=== PATIENT | female | born 1950 | race Caucasian/White ===

== ENCOUNTER → 2016-12-11 | Outpatient (CLI) | payer MEDICARE, BC ==
[~2016-12-11] MED LIST: AMLO5CAP3 PO; BACT800T5 PO; CLOP75TA PO; CYCL1TAB29 PO; DICL75TA PO; FLUC150T PO; FURO20TA PO; GABA300C5 PO; HYDR-3583 PO; LEVO500T8 PO; METO50TA11 PO; OXYGENTANK NAS.CANULA; PANT40TA3 PO; PEPT262T2 PO; PRAV40TA2 PO; PRED10 PO; ROSU20; SYMB160A INH; TRAM50TA PO; VITA200012 PO; VITA20004 PO
[2016-12-11 09:45] LABS: AUTOMATED NEUTROPHIL # 5.7 TH/MM3 (1.8-7.7); BASOPHIL # 0.1 TH/MM3 (0-0.2); BASOPHIL % 0.7 % (0.0-2.0); EOSINOPHIL # 0.2 TH/MM3 (0-0.4); EOSINOPHIL % 2.6 % (0.0-4.0); HEMO FLAGS DIFF FINAL; LYMPH % 21.5 % (9.0-44.0); LYMPHOCYTE # 1.9 TH/MM3 (1.0-4.8); MEAN CELL VOLUME 91.7 FL (80.0-100.0); MEAN CORPUSCULAR HEMOGLOBIN 31.2 PG (27.0-34.0); MONO % 9.2 % (0.0-8.0); PLATELET COUNT 247 TH/MM3 (150-450); RED CELL DISTRIBUTION WIDTH 14.4 % (11.6-17.2); WHITE BLOOD COUNT 8.7 TH/MM3 (4.0-11.0)
[2016-12-11 09:49] LABS: BLOOD, URINE NEG (NEG); COMMENT (UR) CULT NOT INDICATED; CULTURE IF INDICATED CULT NOT INDICATED; GLUCOSE,URINE NEG (NEG); HYALINE CAST, URINE 1 /lpf (RARE); KETONE, URINE NEG (NEG); MUCUS URINE FEW /lpf (OCC); NITRITE,URINE NEG (NEG); PH, URINE 5.5 (5.0-8.5); SQUAMOUS EPITHELIAL CELL URINE 3 /hpf (0-5); URINE COLOR YELLOW (YELLW/STRAW)
[2016-12-11 09:51] LABS: APTT (PATIENT) 26.8 SEC (24.3-30.1); INTERNATIONAL NORMALIZED RATIO 0.9 RATIO; PROTHROMBIN TIME - PATIENT 10.3 SEC (9.8-11.6)
[2016-12-11 10:23] LABS: ALKALINE PHOSPHATASE 81 U/L (45-117); ALT (GPT) 18 U/L (10-53); ANION GAP 6 MEQ/L (5-15); AST (GOT) 11 U/L (15-37); BICARBONATE 27.6 MEQ/L (21.0-32.0); BLOOD UREA NITROGEN 23 MG/DL (7-18); CHLORIDE 108 MEQ/L (98-107); GLOMERULAR FILTRATION RATE 45 ML/MIN (>89); GLUCOSE,FASTING 82 MG/DL (74-99); SODIUM (NA) 142 MEQ/L (136-145); TOTAL BILIRUBIN ADULT 0.3 MG/DL (0.2-1.0)
== END ==
LOC: CPRE 07:46
PROVIDERS: ATTEND Neurological Surgery
DX: Z01.812 Encounter for preprocedural laboratory examination (principal); M48.06 Spinal stenosis, lumbar region; Z79.01 Long term (current) use of anticoagulants
CPT/HCPCS: 36415; 80053; 81001; 85025; 85610; 85730

== ENCOUNTER 2016-12-13 06:19 | Observation (INO) | payer MEDICARE, BC ==
[~2016-12-13] VITALS: Ht 165.1 cm; Wt 105.4 kg
[~2016-12-13 06:19] MED LIST changes: -AMLO5CAP3 PO; -BACT800T5 PO; -FLUC150T PO; -FURO20TA PO; -HYDR-3583 PO; -LEVO500T8 PO; -OXYGENTANK NAS.CANULA; -PRED10 PO; -ROSU20
[2016-12-13] MEDS ORDERED: SODIUM CHLOR 0.9% 1000 ML INJ 1,000 ML IV SCH (06:45)
[2016-12-13] MEDS ORDERED: VANCOMYCIN 1000 MG/NS 250 ML IV SCH ×2 (06:45)
[2016-12-13] MEDS ORDERED: SODIUM CHLORID 0.9% 500 ML IV PRN (06:45)
[2016-12-13] MEDS ORDERED: CHLORHEXIDINE GLUCONATE 2 % 1 PACK (2 CLOTHS) TOPICAL PRN (06:45)
[2016-12-13] MEDS ORDERED: METOPROLOL TARTRATE 25 MG TAB PO PRN (06:45)
[2016-12-13] MEDS ORDERED: POVIDONE IODINE 5% (ANTISEPSIS KIT) 4 APPLICATIONS EACH NARE PRN (06:45)
[2016-12-13] MEDS ORDERED: INSULIN HUMAN REGULAR 1,000 UNITS/10 ML VIAL SQ PRN (06:45)
[2016-12-13] MEDS: LACTATED RINGER'S 1000 ML IV PRN ×2 (06:50→18:29)
[2016-12-13 07:00] VITALS: BP 129/85; PULSE 77; RESP 18; TEMP 98.9; O2SAT 99
[2016-12-13] MEDS ORDERED: AMLO5CAP3 PO (07:07)
[2016-12-13] MEDS ORDERED: ACETAMINOPHEN 1000 MG/100 ML VIAL IV ONE (07:52)
[2016-12-13] MEDS ORDERED: MIDAZOLAM HCL 2 MG/2 ML VIAL ONE (07:52)
[2016-12-13] MEDS ORDERED: ARTIFICIAL TEARS OPTH OINT 3.5 APPLIC/3.5 GM TUBO ONE (07:52)
[2016-12-13] MEDS ORDERED: fentaNYL CITRATE 250 MCG/5 ML AMP ONE (07:53)
[2016-12-13] MEDS ORDERED: FAMOTIDINE 20 MG/2 ML VIAL ONE (07:53)
[2016-12-13] MEDS ORDERED: ceFAZolin 2 GM PREMIX 50 ML ONE (07:56)
[2016-12-13] MEDS ORDERED: methylPREDNISolone ACETATE 40 MG/ML VIAL ONE ×2 (07:56→11:12)
[2016-12-13] MEDS ORDERED: BUPIVACAINE/EPINEPHRINE 0.5% PF 30 ML VIAL ONE (07:56)
[2016-12-13] MEDS ORDERED: THROMBIN (TOPICAL) 5,000 UNIT VIAL ONE (07:56)
[2016-12-13] MEDS ORDERED: GENTAMICIN SULFATE 80 MG/2 ML VIAL ONE (07:57)
[2016-12-13] MEDS ORDERED: GELFOAM SIZE 100 ONE (07:57)
[2016-12-13] MEDS: SODIUM CHLORIDE 0.9% FLUSH 5 ML FLUSH IVF SCH ×2 (12:00→20:52)
[2016-12-13] MEDS ORDERED: SODIUM CHLORIDE 0.9% FLUSH 5 ML FLUSH IVF PRN (12:00)
[2016-12-13] MEDS ORDERED: MENTHOL LOZENGE BUCCAL PRN (12:00)
[2016-12-13] MEDS ORDERED: MORPHINE SULFATE 4 MG/ML INJ IV PUSH PRN ×2 (12:00)
[2016-12-13] MEDS ORDERED: ONDANSETRON HCL 4 MG/2 ML VIAL IV PUSH ONE (12:00)
[2016-12-13] MEDS ORDERED: cloNIDine HCL 0.1 MG TAB PO/NG PRN (12:00)
[2016-12-13] MEDS ORDERED: NEOSTIGMINE 3 MG/3 ML SYR IV ONE (12:00)
[2016-12-13] MEDS ORDERED: ACETAMINOPHEN/HYDROcodone 325 MG/10 MG TAB PO PRN (12:00)
[2016-12-13] MEDS ORDERED: ONDANSETRON HCL 4 MG/2 ML VIAL IV PRN (12:00)
[2016-12-13] MEDS ORDERED: LACTATED RINGER'S 1000 ML INJ 1,000 ML IV ONE (12:00)
[2016-12-13] MEDS ORDERED: ACETAMINOPHEN 325 MG TAB PO PRN (12:00)
[2016-12-13] MEDS ORDERED: MAGNESIUM HYDROXIDE SUSP 30 ML CUP PO PRN (12:00)
[2016-12-13] MEDS ORDERED: PROPOFOL 200 MG/20 ML AMP IV ONE (12:00)
[2016-12-13] MEDS ORDERED: HYDR-3583 PO (12:32)
[2016-12-13] MEDS ORDERED: *morphine SULFATE 8 MG/ML PERIprocedure ONLY ONE ×3 (12:34→12:58)
[2016-12-13] MEDS: SODIUM CHLOR 0.9% 1000 ML INJ 1,000 ML IV SCH ×2 (12:55→22:22)
[2016-12-13] MEDS: DOCUSATE SODIUM 100 MG CAP PO SCH ×2 (13:00→20:51)
[2016-12-13] MEDS ORDERED: DO NOT ADM ANY ANTICOAGULANT DRUGS PRN (13:15)
[2016-12-13 13:28] LABS: BICARBONATE 22.3 MEQ/L (21.0-32.0); MAGNESIUM 1.9 MG/DL (1.5-2.5); POTASSIUM 3.8 MEQ/L (3.5-5.1)
--- NOTE | 2016-12-13 14:44 | EKG ---
Date Performed: 12/13/2016 Time Performed: 13:16:50 PTAGE: 66 years EKG: Sinus rhythm WITH FREQUENT VENTRICULAR PREMATURE COMPLEXES ANTERIOR T-WAVE INVERSIONS, CONSIDER POSSIBLE ISCHEMIA ABNORMAL ECG PREVIOUS TRACING : 09/10/2012 06.59 Compared to the previous tracing, PVCs are new. T-wave inv ersions are somewhat more prominent DOCTOR: Andrew Knutson Interpretating Date/Time 12/13/2016 14:42:45
[2016-12-13] MEDS: MAGNESIUM SULFATE 1 GM PREMIX 100 ML IV SCH ×2 (14:50→17:00)
--- NOTE | 2016-12-13 15:33 | RADRPT ---
EXAM DATE/TIME: 12/13/2016 08:59 [facility] COMPARISON: No previous studies available for comparison. INDICATIONS : Level Localization L2,L3 and L4,L5. MEDICAL HISTORY : None. SURGICAL HISTORY : None. ENCOUNTER: Initial ACUITY: 1 day PAIN SCORE: Non-responsive. LOCATION: Lumbar spine. FINDINGS: 2 digital images of the lower lumbar spine are submitted. There is slight anterolisthesis of what I b elieve is L4 relative to L5. On image 102, a marker overlies the L5 level. On image 2 of 2, a marker overlies L3. CONCLUSION: Lumbar level localization as above Ben Zaragoza MD on December 13, 2016 at 15:30 Board Certified Radiologist. This report was verified electronically.
[2016-12-13] MEDS: RESP: ALBUTEROL 2.5 MG/3 ML NEB (PRN) INH (15:45)
[2016-12-13] MEDS ORDERED: POTASSIUM CHLORIDE 10 MEQ CONTROLLED RELEASE TAB PO ONE (16:00)
[2016-12-13] MEDS: PANTOPRAZOLE SOD 40 MG DELAYED RELEASE TAB PO SCH (16:30)
[2016-12-13] MEDS: ceFAZolin 2 GM PREMIX 50 ML IV SCH (17:00)
[2016-12-13 18:00] VITALS: BP 118/69; PULSE 68; RESP 12; TEMP 96.2; O2SAT 91
[2016-12-13] MEDS: BUDESONIDE-FORMOTEROL 160/4.5 MCG INHALER INH SCH (19:43)
[2016-12-13 20:20] VITALS: BP 142/67; PULSE 79; RESP 17; TEMP 96.7; O2SAT 92
[2016-12-13] MEDS: GABAPENTIN 300 MG CAP PO SCH (20:50)
[2016-12-13] MEDS: ACETAMINOPHEN/HYDROcodone 325 MG/10 MG TAB PO PRN (20:51)
[2016-12-13] MEDS: PRAVASTATIN SOD 40 MG TAB PO SCH (20:51)
[2016-12-13] MEDS: METOPROLOL SUCCINATE 50 MG EXTENDED RELEASE TAB PO SCH (22:21)
[2016-12-14] VITALS (15 sets, daily range): BP systolic 83–150; BP diastolic 65–87; PULSE 62–80; RESP 15–22; TEMP 96.8–98.5; O2SAT 78–96
[2016-12-14] MEDS: ceFAZolin 2 GM PREMIX 50 ML IV SCH ×2 (00:56→08:44)
[2016-12-14] MEDS: ACETAMINOPHEN/HYDROcodone 325 MG/10 MG TAB PO PRN ×3 (05:17→20:03)
--- NOTE | 2016-12-14 06:29 | MB ---
cc: ANDREW SERRANO SURYA P. MD DATE OF CONSULTATION December 13, [address] [address] Willy SHETH REASON FOR CONSULTATION Arrhythmia. HISTORY OF PRESENT ILLNESS Omaira Rodrigez as a pleasant 66-year-old female who presented to [facility] on December 13, 2016, for elective surgery. She underwent an L2/3, L4/5 hemilaminectomy, foraminectomy, mesiofacetectomy and microsurgical resection of disc. Postoperatively she was having bigeminy and then into sinus rhythm with PVCs occasionally. Because of this, lab work an EKG was done and Cardiology was consulted. In seeing the patient, she states that she has no complaints, specifically denying chest pain, shortness of breath, dizziness or lightheadedness. She has a history of palpitations and per the records a history of bigeminy. PAST MEDICAL HISTORY 1. Cataracts. 2. Asthma. 3. COPD. 4. Hypertension. 5. Osteoarthritis. 6. TIA. 7. Peripheral artery disease. PAST SURGICAL HISTORY 1. Peripheral artery stenting. 2. Hysterectomy. 3. Left knee replacement. ALLERGIES 1. Augmentin. 2. Cipro. MEDICATIONS 1. Symbicort 1 puff b.i.d. 1. Gabapentin 300 mg b.i.d. 2. Metoprolol succinate 50 mg b.i.d. 3. Flexeril 10 mg b.i.d. 4. Amlodipine plus benazepril 5/20 mg daily. 5. Pravastatin 40 mg every night. 6. Diclofenac 75 mg b.i.d. 7. Hydrocodone/acetaminophen and 10/325 mg every 8 hours as needed. 8. Tramadol 50 mg b.i.d. 9. Plavix 75 mg daily. 10. Protonix 40 mg daily. SOCIAL HISTORY The patient is a current smoker. She drinks occasional alcohol. Denies illicit drug abuse. FAMILY HISTORY Denies premature coronary artery disease or sudden cardiac within the family. REVIEW OF SYSTEMS Fourteen systems were reviewed as above. Pertinent positives and negatives as above, otherwise negative. PHYSICAL EXAMINATION VITAL SIGNS: Temperature 98.9, heart rate 75, blood pressure 129/85, respirations 18, pulse ox 95% on room air. IN GENERAL: The patient appears well, in no acute distress. Alert, awake and oriented x 3. Extraocular muscles intact. Mucous membranes moist. NECK: Supple. No JVD at 45 degrees. No carotid bruits heard bilaterally. Carotid upstroke is brisk in nature. HEART: Regular rate and rhythm. Positive first and second heart sounds with no noted murmurs, gallops or rubs. PMI is nondisplaced. LUNGS: Clear to auscultation bilaterally. No wheezes, rales or rhonchi. ABDOMEN: Soft, nontender, nondistended. No organomegaly noted. EXTREMITIES: No clubbing, cyanosis or edema. Femoral and distal pulses intact bilaterally. NEUROLOGICALLY: No focal deficits. SKIN: Warm, dry and intact. OSTEOPATHIC EXAM: No kyphoscoliosis or lordosis. LABORATORY FINDINGS Potassium 3.8, BUN 16, creatinine 0.97, magnesium 1.9. ELECTROCARDIOGRAM (December 13, 2016 at 13:16) Sinus rhythm with PVCs, anterior T-wave inversions, possible ischemia versus nonspecific changes. IMPRESSIONS 1. Bigeminy. 2. Sinus rhythm with occasional PVCs, currently asymptomatic. 3. History of palpitations with a history of bigeminy. 4. EKG with mild anterior T-wave inversions which is similar to her previous EKG in the office (September 13, 2015). 5. Status post L2/3, L4/5 hemilaminectomy, foraminotomy, mesiofacetectomy, microsurgical disc resection. 6. Hypertension. 7. COPD. 8. Asthma. 9. History of TIA. 10. History of peripheral artery disease. RECOMMENDATIONS 1. Miss Rodrigez does have a history of bigeminy and this has been worked up in the past by Dr. Melton. He she currently had an episode of bigeminy and then and now is in sinus rhythm with occasional PVCs. She is asymptomatic from this. 2. As far as her lab work goes, we will give her a dose of potassium and magnesium. 3. Recent echo done at [facility] shows normal ejection fraction. 4. She does have minor T-wave inversions which may be somewhat nonspecific versus due to ischemia. This is similar in nature to her previous EKG from the office (September 13, 2015). Furthermore, the patient is currently asymptomatic. I feel that we can watch her overnight and if stable in the morning she can be discharged for further workup with a consideration of a stress test by Dr. Melton in the outpatient setting. 5. If any change overnight with symptoms or hemodynamically, we may have to change our plan on possible ischemic evaluation. 6. If stable in the morning, we will plan for discharge from a cardiovascular standpoint for followup with Dr. Melton. Thank you for allowing me to see Omaira Shiekhfield. If there are any questions, please do not hesitate to call. Andrew Serrano DO VGP/SSB /6:26 PM /6:09 AM [facility]ALIA
[2016-12-14] MEDS: BUDESONIDE-FORMOTEROL 160/4.5 MCG INHALER INH SCH ×2 (08:43→20:07)
[2016-12-14] MEDS: LISINOPRIL 20 MG TAB PO SCH (08:45)
[2016-12-14] MEDS: CYANOCOBALAMIN 1,000 MCG TAB PO SCH (08:45)
[2016-12-14] MEDS: GABAPENTIN 300 MG CAP PO SCH ×2 (08:45→20:03)
[2016-12-14] MEDS: PANTOPRAZOLE SOD 40 MG DELAYED RELEASE TAB PO SCH (08:45)
[2016-12-14] MEDS: amLODIPine BESYLATE 5 MG TAB PO SCH (08:45)
[2016-12-14] MEDS: METOPROLOL SUCCINATE 50 MG EXTENDED RELEASE TAB PO SCH ×2 (08:46→20:03)
[2016-12-14] MEDS: DOCUSATE SODIUM 100 MG CAP PO SCH ×2 (08:46→20:03)
[2016-12-14] MEDS: SODIUM CHLORIDE 0.9% FLUSH 5 ML FLUSH IVF SCH ×2 (08:49→20:05)
[2016-12-14] MEDS: SODIUM CHLOR 0.9% 1000 ML INJ 1,000 ML IV SCH (08:49)
--- NOTE | 2016-12-14 08:56 | HHI.NSPN ---
(Tuyet Haywood) Note Status Status: Progress Note (Tuyet Haywood) Interval History Interval History Ms. Rodrigez is a 66 year old female s/p lumbar decompressive laminectomy and microdiscectomy on 12/13/16. Post-op she developed arrhythmias and Cardiology consulted. 12/14: c/o of shortness of breath, denies chest pain. respiratory paged for breathing tx. (Tuyet Haywood) Labs, Micro, & Vital Signs Results Date Time Temp Pulse Resp B/P Pulse Ox O2 Delivery O2 Flow Rate FiO2 12/14/16 07:36 97.2 78 17 126/73 92 12/14/16 04:40 97.0 68 18 135/67 92 12/14/16 00:50 96.8 66 17 118/67 93 12/13/16 20:20 96.7 79 17 142/67 92 12/13/16 19:43 High Flow Nasal Cannula 6.00 12/13/16 18:00 96.2 68 12 118/69 91 12/13/16 17:00 98.3 78 20 151/68 95 Nasal Cannula 3 12/13/16 16:00 78 26 127/68 93 Nasal Cannula 3 12/13/16 15:00 74 21 115/68 92 Nasal Cannula 3 12/13/16 14:00 74 19 119/71 93 Nasal Cannula 3 12/13/16 13:30 75 19 121/68 93 Nasal Cannula 3 12/13/16 13:15 77 24 129/78 91 Nasal Cannula 4 12/13/16 13:00 73 20 131/67 93 Nasal Cannula 4 12/13/16 12:45 73 20 133/61 93 Nasal Cannula 4 12/13/16 12:30 72 20 93 Nasal Cannula 4 138/72 12/13/16 12:15 72 16 134/58 93 Nasal Cannula 4 124/65 12/13/16 12:06 97.3 77 17 132/74 91 Simple Mask 6 12/14/16 07:00 Intake Total 3068 ml Output Total 1430 ml Balance 1638 ml Constitutional Vital Signs Date Time Temp Pulse Resp B/P Pulse Ox O2 Delivery O2 Flow Rate FiO2 12/14/16 07:36 97.2 78 17 126/73 92 12/14/16 04:40 97.0 68 18 135/67 92 12/14/16 00:50 96.8 66 17 118/67 93 12/13/16 20:20 96.7 79 17 142/67 92 12/13/16 19:43 High Flow Nasal Cannula 6.00 12/13/16 18:00 96.2 68 12 118/69 91 12/13/16 17:00 98.3 78 20 151/68 95 Nasal Cannula 3 12/13/16 16:00 78 26 127/68 93 Nasal Cannula 3 12/13/16 15:00 74 21 115/68 92 Nasal Cannula 3 12/13/16 14:00 74 19 119/71 93 Nasal Cannula 3 12/13/16 13:30 75 19 121/68 93 Nasal Cannula 3 12/13/16 13:15 77 24 129/78 91 Nasal Cannula 4 12/13/16 13:00 73 20 131/67 93 Nasal Cannula 4 12/13/16 12:45 73 20 133/61 93 Nasal Cannula 4 12/13/16 12:30 72 20 93 Nasal Cannula 4 138/72 12/13/16 12:15 72 16 134/58 93 Nasal Cannula 4 124/65 12/13/16 12:06 97.3 77 17 132/74 91 Simple Mask 6 12/14/16 07:00 Intake Total 3068 ml Output Total 1430 ml Balance 1638 ml (Tuyet Haywood) Review of Systems/Exam Exam Alert and oriented x 3. Speech is fluent. Motor: moves right leg 4/5 proximal, 5/5 distal left leg 5/5. moves upper extremities well Heart: NSR Lung: wheezes to right upper lung field Ext: no edema or pain to palpation CN: pupils equal, facial motor symmetric (Tuyet Haywood) Medications Current Medications Current Medications Medications (Trade) Dose Ordered Sig/Zoran Route PRN Reason Start Time Stop Time Status Last Admin Dose Admin Lactated Ringer's 1,000 ml @ 30 mls/hr Q24H PRN IV SEE LABEL COMMENTS 12/13/16 06:45 12/16/16 06:44 12/13/16 06:50 Sodium Chloride 500 ml @ 30 mls/hr [id number] PRN IV SEE LABEL COMMENTS 12/13/16 06:45 12/16/16 06:44 Sodium Chloride (NS 1000 ml Inj) 1,000 ml @ 100 mls/hr Q10H IV 12/13/16 13:00 12/13/16 12:55 IV Flush (NS Flush) 2 ml UNSCH PRN IVF FLUSH AFTER USING IV ACCESS 12/13/16 12:00 IV Flush 2 ml 2 ml BID IVF 12/13/16 12:00 12/13/16 12:00 Cefazolin Sodium/ Dextrose (Ancef 2 Gm Premix) 50 ml @ 100 mls/hr Q8H IV 12/13/16 17:00 12/14/16 09:29 12/14/16 08:44 Docusate Sodium (Colace) 100 mg BID PO 12/13/16 13:00 Magnesium Hydroxide (Milk Of Magnesia Liq) 30 ml DAILY PRN PO CONSTIPATION 12/13/16 12:00 Pantoprazole Sodium (Protonix) 40 mg DAILY PO 12/13/16 13:00 12/14/16 08:45 Ondansetron HCl (Zofran Inj) 4 mg Q6H PRN IV NAUSEA OR VOMITING 12/13/16 12:00 Acetaminophen/ Hydrocodone Bitart ([place] 10-325 Mg) 1 tab Q4H PRN PO PAIN SCALE 1 TO 5 12/13/16 12:00 Acetaminophen/ Hydrocodone Bitart ([place] 10-325 Mg) 2 tab Q4H PRN PO PAIN SCALE 6 TO 10 12/13/16 12:00 12/14/16 08:47 Morphine Sulfate (Morphine Inj) 2 mg Q2H PRN IV PUSH PAIN SCALE 1 TO 6 12/13/16 12:00 Morphine Sulfate (Morphine Inj) 4 mg Q2H PRN IV PUSH PAIN SCALE 7 TO 10 12/13/16 12:00 Clonidine (Catapres) 0.1 mg Q6H PRN PO/NG SYS BP GREATER THAN 170 MMHG 12/13/16 12:00 Acetaminophen (Tylenol) 650 mg Q4H PRN PO TEMPERATURE > 101.5 F 12/13/16 12:00 Menthol ([place] Mariela) 1 lozenge UNSCH PRN BUCCAL SORE THROAT 12/13/16 12:00 Budesonide/ Formoterol Fumarate (Symbicort 160-4.5 Inh) 1 puff BID INH 12/13/16 21:00 12/14/16 08:43 Cyanocobalamin (Vitamin B12) 2,000 mcg DAILY PO 12/14/16 09:00 12/14/16 08:45 Gabapentin (Neurontin) 300 mg BID PO 12/13/16 21:00 12/14/16 08:45 Pravastatin Sodium (Pravachol) 40 mg HS PO 12/13/16 21:00 Amlodipine Besylate (Norvasc) 5 mg DAILY PO 12/13/16 13:15 12/14/16 08:45 Lisinopril (Prinivil) 20 mg DAILY PO 12/14/16 09:00 12/14/16 08:45 Miscellaneous Information ALL NURSING DEPARTME... UNSCH PRN .XX SEE LABEL COMMENTS 12/13/16 13:15 12/14/16 13:14 Metoprolol Succinate (Toprol Xl) 50 mg BID PO 12/13/16 22:00 12/14/16 08:46 (Tuyet Haywood) Medical Decision Making MDM Remarks 66 y/o female s/p lumbar laminectomy and microdiscectomy 12/13/16 Arrhythmia, resolved Asthma/COPD exacerbation (Tuyet Haywood) Plan Plan Remarks Cardiology evaluation noted, appreciated, start continuous pulse ox, CXR neb treatment cont SCDs and TEDs for dvt prophylaxis (Tuyet Haywood) Attending Statement The exam, history, and the medical decision-making described in the above note were completed with the assistance of the mid-level provider. I reviewed and agree with the findings presented. I attest that I had a [id number] encounter with the patient on the same day, and personally performed and documented my assessment and findings in the medical record. (Frank De La Cruz MD) Tuyet Haywood December 14, 2016 08:56 Frank De La Cruz MD December 18, 2016 12:43
[2016-12-14] MEDS ORDERED: NON-FORMULARY DRUG (Amlodipine-Benazepril 1 CAP) PO SCH (09:00)
[2016-12-14] MEDS: RESP: ALBUTEROL 2.5 MG/3 ML NEB (PRN) INH ×2 (09:16→09:44)
[2016-12-14 09:38] LABS: BLOOD GAS BASE EXCESS -4.5 mmol/L (-2-2); BLOOD GAS CARBOXYHEMOGLOBIN 1.7 % (0-4); BLOOD GAS HCO3 21 mmol/L (22-26); BLOOD GAS METHEMOGLOBIN 1.4 % (0-2); BLOOD GAS O2 HGB SATURATION 86 % (90-100); BLOOD GAS OXYGEN CONTENT 15.9 Vol % (12.0-20.0); BLOOD GAS PCO2 41 mmHg (38-42); BLOOD GAS PO2 58 mmHg (61-120); BLOOD GAS TOTAL HGB 13.1 G/DL (12.0-16.0); TEMP CORR TO 98.6
[2016-12-14 09:39] LABS: CRITICAL VALUE YES
[2016-12-14 09:40] LABS: DRAW SITE RT RADIAL; FIO2 50 %; NUMBER OF ARTERIAL PUNCTURES 1; OXYGEN DEVICE VENTIMASK; STAT YES; ULNAR PULSE PRESENT
[2016-12-14] MEDS ORDERED: FUROSEMIDE 40 MG/4 ML VIAL ONE (09:41)
--- NOTE | 2016-12-14 09:56 | RADRPT ---
EXAM DATE/TIME: 12/14/2016 09:34 [facility] COMPARISON: No previous studies available for comparison. INDICATIONS : Shortness of breath. MEDICAL HISTORY : Myocardial infarction. SURGICAL HISTORY : None. ENCOUNTER: Subsequent ACUITY: 2 days PAIN SCORE: 0/10 LOCATION: Bilateral chest FINDINGS: Heart size is mildly enlarged. There some hazy opacity of the lung bases which may represent mild richard ma and associated atelectasis. No significant effusion. No pneumothorax. CONCLUSION: 1. Mild cardiomegaly with possible mild edema pattern and basilar atelectasis. Sae Lin MD on December 14, 2016 at 9:53 Board Certified Radiologist. This report was verified electronically.
--- NOTE | 2016-12-14 10:16 | PD.CONS ---
[facility] Requested By Doctor Frank De La Cruz Reason for Consult Shortness of breath Primary Care Physician Juju Poole M.D. Diagnoses: History of Present Illness This is a pleasant 66 y/o Female who has COPD, Hypertension, OA, TIA, Peripheral Artery Disease Who came to this Facility on December 13, 2016 for Elective Surgery, status post L2- L3, L4-L5 Hemilaminectomy, Facetectomy, Foraminectomy, Microsurgical resection of disc, she is been seen by child life specialist due to Bigeminy and then had sinus rhythm with Occasional PVCs, rhythm with PVCs occasionally, having some Shortness of breath, Dizziness, Lightheadedness, as per child life specialist okay to discharge home, this morning, she developed Shortness of breath with Hypoxemia, Rapid response team and occupancy specialist in to see patient and recommended diuretics and respiratory treatment. she is been seen in her bedroom in the presence of her Boyfriend Mr. Dempsey states she is a heavy smoker. Review of Systems Respiratory: COMPLAINS OF: Shortness of breath Past Family Social History Allergies: Coded Allergies: Augmentin (Verified Allergy, Severe, 12/13/16) Cipro (Verified Allergy, Severe, 12/13/16) Past Medical History Cataracts. COPD. Hypertension. Osteoarthritis. TIA. Peripheral artery disease. Past Surgical History Peripheral artery stenting. Hysterectomy. Left knee replacement. breast reduction. Reported Medications Reported Meds & Active Scripts Active Hydrocodone-Acetaminophen 10-325 mg Tab 1 Tab PO Q8HR PRN Reported Amlodipine-Benazepril 5-20 Mg Cap 1 Cap PO DAILY Vitamin D3 (Cholecalciferol) 2,000 Unit Tab 6,000 Units PO DAILY Vitamin B-12 ER (Cyanocobalamin) 2,000 Mcg Tab 2,000 Mcg PO DAILY Pepto-Bismol (Bismuth Subsalicylate) 262 Mg Tab 524 Mg PO BID Do not exceed 8 doses in 24 hours. Flexeril (Cyclobenzaprine HCl) 10 Mg Tab 10 Mg PO BID Pantoprazole (Pantoprazole Sodium) 40 Mg Tab 1 Tab PO DAILY Pravastatin 40 Mg Tab 1 Tab PO HS Diclofenac Sodium DR (Diclofenac Sodium) 75 Mg Tabdr 1 Tab PO BID Tramadol (Tramadol HCl) 50 Mg Tab 1 Tab PO BID Metoprolol Succinate ER 24 HR (Metoprolol Succinate) 50 Mg Tab 1 Tab PO BID Gabapentin 300 Mg Cap 1 Cap PO BID Clopidogrel (Clopidogrel Bisulfate) 75 Mg Tab 1 Tab PO DAILY Symbicort Inh (Budesonide/Formoterol Fumarate) 160-4.5 Mcg/Act Aero 1 Puff INH BID Active Ordered Medications Current Medications Medications (Trade) Dose Ordered Sig/Zoran Route Start Time Stop Time Status Last Admin Lactated Ringer's 1,000 ml @ 30 mls/hr Q24H PRN IV 12/13/16 06:45 12/16/16 06:44 12/13/16 06:50 Sodium Chloride 500 ml @ 30 mls/hr [id number] PRN IV 12/13/16 06:45 12/16/16 06:44 (NS 1000 ml Inj) 1,000 ml @ 100 mls/hr Q10H IV 12/13/16 13:00 12/13/16 12:55 (NS Flush) 2 ml UNSCH PRN IVF 12/13/16 12:00 (NS Flush) 2 ml BID IVF 12/13/16 12:00 12/13/16 12:00 (Colace) 100 mg BID PO 12/13/16 13:00 (Milk Of Magnesia Liq) 30 ml DAILY PRN PO 12/13/16 12:00 (Protonix) 40 mg DAILY PO 12/13/16 13:00 12/14/16 08:45 (Zofran Inj) 4 mg Q6H PRN IV 12/13/16 12:00 ([place] 10-325 Mg) 1 tab Q4H PRN PO 12/13/16 12:00 ([place] 10-325 Mg) 2 tab Q4H PRN PO 12/13/16 12:00 12/14/16 08:47 (Morphine Inj) 2 mg Q2H PRN IV PUSH 12/13/16 12:00 (Morphine Inj) 4 mg Q2H PRN IV PUSH 12/13/16 12:00 (Catapres) 0.1 mg Q6H PRN PO/NG 12/13/16 12:00 (Tylenol) 650 mg Q4H PRN PO 12/13/16 12:00 ([place] Mariela) 1 lozenge UNSCH PRN BUCCAL 12/13/16 12:00 (Symbicort 160-4.5 Inh) 1 puff BID INH 12/13/16 21:00 12/14/16 08:43 (Vitamin B12) 2,000 mcg DAILY PO 12/14/16 09:00 12/14/16 08:45 (Neurontin) 300 mg BID PO 12/13/16 21:00 12/14/16 08:45 (Pravachol) 40 mg HS PO 12/13/16 21:00 (Norvasc) 5 mg DAILY PO 12/13/16 13:15 12/14/16 08:45 (Prinivil) 20 mg DAILY PO 12/14/16 09:00 12/14/16 08:45 Miscellaneous Information ALL NURSING DEPARTME... UNSCH PRN .XX 12/13/16 13:15 12/14/16 13:14 (Toprol Xl) 50 mg BID PO 12/13/16 22:00 12/14/16 08:46 Family History Father and Mother with CAD, Father with Lymphoma. Social History Lives with her boyfriend Mr. Dempsey Tobacco dependency 49 Pack year history. Occasional alcohol abuse denies other toxic habits. Physical Exam Vital Signs Vital Signs Date Time Temp Pulse Resp B/P Pulse Ox O2 Delivery O2 Flow Rate FiO2 12/14/16 07:36 97.2 78 17 126/73 92 12/14/16 04:40 97.0 68 18 135/67 92 12/14/16 00:50 96.8 66 17 118/67 93 12/13/16 20:20 96.7 79 17 142/67 92 12/13/16 19:43 High Flow Nasal Cannula 6.00 12/13/16 18:00 96.2 68 12 118/69 91 12/13/16 17:00 98.3 78 20 151/68 95 Nasal Cannula 3 12/13/16 16:00 78 26 127/68 93 Nasal Cannula 3 12/13/16 15:00 74 21 115/68 92 Nasal Cannula 3 12/13/16 14:00 74 19 119/71 93 Nasal Cannula 3 12/13/16 13:30 75 19 121/68 93 Nasal Cannula 3 12/13/16 13:15 77 24 129/78 91 Nasal Cannula 4 12/13/16 13:00 73 20 131/67 93 Nasal Cannula 4 12/13/16 12:45 73 20 133/61 93 Nasal Cannula 4 12/13/16 12:30 72 20 93 Nasal Cannula 4 138/72 12/13/16 12:15 72 16 134/58 93 Nasal Cannula 4 124/65 12/13/16 12:06 97.3 77 17 132/74 91 Simple Mask 6 Physical Exam GENERAL: Obese patient in mild respiratory distress. SKIN: No rashes, ecchymoses or lesions. Cool and dry. HEAD: Atraumatic. Normocephalic. No temporal or scalp tenderness. EYES: Pupils equal round and reactive. Extraocular motions intact. No scleral icterus. No injection or drainage. ENT: Nose without bleeding, purulent drainage or septal hematoma. Throat without erythema, tonsillar hypertrophy or exudate. Uvula midline. Airway patent. NECK: Trachea midline. No JVD or lymphadenopathy. Supple, nontender, no meningeal signs. CARDIOVASCULAR: Regular rate and rhythm without murmurs, gallops, or rubs. RESPIRATORY: Decreased breath sounds bilateral, with mild expiratory wheezing, no crackles. GASTROINTESTINAL: Abdomen soft, non-tender, nondistended. No hepato-splenomegaly , or palpable masses. No guarding. MUSCULOSKELETAL: Extremities without clubbing, cyanosis, or edema. NEUROLOGICAL: Awake and alert. No focal deficits. Laboratory Laboratory Tests Test 12/13/16 12/14/16 12:30 09:30 Sodium Level 144 Potassium Level 3.8 Chloride Level 114 Carbon Dioxide Level 22.3 Anion Gap 8 Blood Urea Nitrogen 16 Creatinine 0.97 Estimat Glomerular Filtration 57 Rate Random Glucose 120 Calcium Level 8.3 Magnesium Level 1.9 Blood Gas Puncture Site RT RADIAL Blood Gas Patient Temperature 98.6 Blood Gas HCO3 21 Blood Gas Base Excess -4.5 Blood Gas Oxygen Saturation 86 Arterial Blood pH 7.32 Arterial Blood Partial 41 Pressure CO2 Arterial Blood Partial 58 Pressure O2 Arterial Blood Oxygen Content 15.9 Arterial Blood 1.7 Carboxyhemoglobin Arterial Blood Methemoglobin 1.4 Blood Gas Hemoglobin 13.1 Oxygen Delivery Device VENTIMASK Blood Gas Inspired Oxygen 50 Result Diagram: 12/13/16 1230 Imaging Last Impressions Lumbar Spine X-Ray 12/13/16 0000 Signed Impressions: Service Date/Time: Tuesday, December 13, 2016 08:59 - CONCLUSION: Lumbar level localization as above Ben Zaragoza MD Assessment and Plan Assessment and Plan 1. Respiratory failure multifactorial, patient on IV fluids probable moderate volume overload, seen left Pleural effusion edema on CXR, given already Diuretics as per Critical Care and following, for COPD exacerbation will continue respiratory therapy, Incentive spirometry, Mucolytics, Nebulized steroids and Solu-Medrol one dose of 40 mg and follow for recovery may need PCU versus Intensive Care. 2. Degenerative Disk disease, with Status post L2/3, L4/5 hemilaminectomy, foraminotomy, mesiofacetectomy, microsurgical disc resection. 3. COPD with probable mild exacerbation. 4. TIA by history 5. Peripheral Artery disease. 6. Bigeminy recent Echocardiogram with Normal EF as per child life specialist. recommended to be performed Stress test as outpatient. by her Primary child life specialist Doctor cristina Melton for discharge from Cardiology 7. Hypertension controlled. DVT prophylaxis SCDs Appreciated Doctor Frank De La Cruz for this kindly consultation. following patient with you. Code Status Full code. Discussed Condition With Discussed in the room with Patient, Nurse, Rapid response nurse, her boyfriend Mr. Dempsey. Americo Foreman MD December 14, 2016 10:16
[2016-12-14] MEDS ORDERED: methylPREDNISolone SOD SUCC 40 MG/1 ML VIAL IV PUSH ONE (11:00)
--- NOTE | 2016-12-14 11:30 | PD.OP ---
Operative Report Date of Surgery: December 14, 2016 Preoperative Diagnosis: Lumbar spinal stenosis Postoperative Diagnosis: Lumbar spinal stenosis Procedure: Right L2-L3 hemilaminectomy, mesial facetectomy, foraminotomy with microsurgical resection of the disc, right L4 5 hemilaminectomy, mesial facetectomy, foraminotomy with microsurgical resection of the disc Anesthesia: general Surgeon: Frank De La Cruz Senior Quality Manager(s): Aminta Belcher Operation and Findings: INDICATIONS FOR THE SURGICAL PROCEDURE Ms Villa is a 66 year-old female who presented with intractable mechanical back pain and clinical evidence of L3 and L5 right lower extremity radiculopathy. She was found to have significant lumbar spinal stenosis with significant mass effect on the neural structures which correlated with the clinical symptoms. She failed maximum nonsurgical management including multiple modalities of conservative treatment as well as pain management interventions by an interventional pain specialist. A surgical decompression was indicated as a last resort. The [id number] details of the procedure, indications, alternatives, risks and potential complications were fully discussed with the patient. The patient fully understood. All the questions were answered. No guarantees were given. The patient voiced requesting the procedure and provided informed consents. The patient was offered the alternative of delaying the procedure and continuing with nonsurgical management. DETAILS OF THE SURGICAL PROCEDURE After the induction of general anesthesia, endotracheal intubation was performed. A Cárdenas catheter, bilateral TIFF hose and sequential compression devices were placed and kept throughout the procedure. The patient was positioned prone on a Deshawn table over a Stephen frame. All pressure points were carefully padded with eggcrate mattress. The eyes were tapped shut after ointment was applied by the anesthesiologist to prevent corneal abrasion. A Samuel hugger was placed over the exposed lower body to maintain control of the core body temperature. The lower lumbar region was prepped and draped in the usual sterile fashion. A spinal needle was placed for localization and an x- ray performed with a C-arm. A skin incision was made in the midline over the spinous processes L2-3 and L4- 5 with a #10 blade. Small subcutaneous bleeders were controlled with a bipolar and the dissection was carried out through the lumbar fascia exposing the spinous processes. A subperiostial dissection was performed with a Dickson elevator and a Bovie over the L2-3 and L4-5 spinous process lamina and facets. A microdiscectomy self-retaining retractor was placed on the incision and an x- ray was obtained with an instrument placed underneath the lamina. At this point in the procedure the operating microscope was draped in the usual sterile fashion and brought to the field. The rest of the surgical procedure was performed using microsurgical dissection technique with exception of the closure. Once the level was confirmed, a decompressive laminectomy was performed at L4-5 using the TPS drill with an 4mm drill bit. A medial facetectomy was performed and the superior free border of the ligamentum flavum was dissected with a ligament dissector and removed with a thin footplate 2 mm Kerrison. The medial facetectomy was done and the L5 nerve root was identified and followed towards its exit in the foramen. Epidural veins located laterally to the dural sac were coagulated with a bipolar and incised with microscissors. Gentle medial retraction of the dural sac allowed inspection of the disc space. The patient had severe facet arthropathy with hypertrhopy of the joint facets and ligamentum flavum resulting in mass effect over the dural sac and nerve roots. In addition, there was a broad-based disc protusion, contributing to the stenosis. The annulus fibrosus of the disc was coagulated with the bipolar and incised with an 11 blade. The extruded disc was carefully dissected from the surrounding tissue and removed with pituitary forceps. Then, a microdiscectomy was carried out in the standard fashion using straight and up-biting pituitary forceps. A good decompression of the dural sac and nerve root was achieved. The exit of the nerve root was inspected for residual disc fragments and hemostasis was secured with the bipolar.\ Then, after proper radiological visualization, a right decompressive laminectomy was performed at L2-L3 using the TPS drill with an 4mm drill bit. A medial facetectomy was performed and the superior free border of the ligamentum flavum was dissected with a ligament dissector and removed with a thin footplate 2 mm Kerrison. The medial facetectomy was done and the L3 nerve root was identified and followed towards its exit in the foramen. Epidural veins located laterally to the dural sac were coagulated with a bipolar and incised with microscissors. Gentle medial retraction of the dural sac allowed inspection of the disc space. The patient had severe facet arthropathy with hypertrhopy of the joint facets and ligamentum flavum resulting in mass effect over the dural sac and nerve roots. In addition, there was a broad-based disc protusion, contributing to the stenosis. The annulus fibrosus of the disc was coagulated with the bipolar and incised with an 11 blade. The extruded disc was carefully dissected from the surrounding tissue and removed with pituitary forceps. Then, a microdiscectomy was carried out in the standard fashion using straight and up-biting pituitary forceps. A good decompression of the dural sac and nerve root was achieved. The exit of the nerve root was inspected for residual disc fragments and hemostasis was secured with the bipolar. The incision was irrigated with a large amount of saline solution. A Valsalva maneuver failed to show any cerebrospinal fluid leak or bleeding. The decompression was assessed again and found to be satisfactory. The incision was then closed in layers. The fascia was closed with 0 Vicryl sutures in an interrupted fashion. The superficial fascia was closed with 0 Vicryl sutures. The fascia was infiltrated with 0.5% Marcaine with epinephrine 1:100,000 dilution. The subcutaneous tissue was irrigated then closed with 0 Vicryl and 3 -0 Vicryl. The skin was closed with 4-0 running subcuticular Vicryl. A sterile dressing was applied. At the end of the procedure, the sponge, needle and instrument counts were all correct. Estimated blood loss was less than cc. No blood transfusion was given. No intraoperative complications occurred. The patient received prophylactic antibiotics. The patient was then extubated and transferred to the recovery room in stable condition. Frank De La Cruz MD December 14, 2016 11:30
[2016-12-14] MEDS: RESP: ALBUTEROL 2.5 MG/IPRATROPIUM 0.5 MG NEB (SCH) NEB ×4 (11:48→23:32)
[2016-12-14] MEDS: guaiFENesin E.R. 600 MG TAB PO SCH ×2 (12:00→20:05)
--- NOTE | 2016-12-14 12:58 | PD.CARD.PN ---
Subjective Subjective Remarks Short of breath this morning, Helicat called, found to have pulmonary edema... given Lasix and has diuresed well since Had tightness with breathing this morning, but since diuresing has no further chest pain/tightness Objective Medications Current Medications Medications (Trade) Dose Ordered Sig/Zoran Route Start Time Stop Time Status Last Admin (NS 500 ml Inj) 500 ml @ 30 mls/hr [id number] PRN IV 12/13/16 06:45 12/16/16 06:44 (NS Flush) 2 ml UNSCH PRN IVF 12/13/16 12:00 (NS Flush) 2 ml BID IVF 12/13/16 12:00 12/13/16 12:00 (Colace) 100 mg BID PO 12/13/16 13:00 (Milk Of Magnesia Liq) 30 ml DAILY PRN PO 12/13/16 12:00 (Protonix) 40 mg DAILY PO 12/13/16 13:00 12/14/16 08:45 (Zofran Inj) 4 mg Q6H PRN IV 12/13/16 12:00 ([place] 10-325 Mg) 1 tab Q4H PRN PO 12/13/16 12:00 ([place] 10-325 Mg) 2 tab Q4H PRN PO 12/13/16 12:00 12/14/16 08:47 (Morphine Inj) 2 mg Q2H PRN IV PUSH 12/13/16 12:00 (Morphine Inj) 4 mg Q2H PRN IV PUSH 12/13/16 12:00 (Catapres) 0.1 mg Q6H PRN PO/NG 12/13/16 12:00 (Tylenol) 650 mg Q4H PRN PO 12/13/16 12:00 (Tyler Mariela) 1 lozenge UNSCH PRN BUCCAL 12/13/16 12:00 (Symbicort 160-4.5 Inh) 1 puff BID INH 12/13/16 21:00 12/14/16 08:43 (Vitamin B12) 2,000 mcg DAILY PO 12/14/16 09:00 12/14/16 08:45 (Neurontin) 300 mg BID PO 12/13/16 21:00 12/14/16 08:45 (Pravachol) 40 mg HS PO 12/13/16 21:00 (Norvasc) 5 mg DAILY PO 12/13/16 13:15 12/14/16 08:45 (Prinivil) 20 mg DAILY PO 12/14/16 09:00 12/14/16 08:45 Miscellaneous Information ALL NURSING DEPARTME... UNSCH PRN .XX 12/13/16 13:15 12/14/16 13:14 (Toprol Xl) 50 mg BID PO 12/13/16 22:00 12/14/16 08:46 (Mucinex Er) 600 mg BID PO 12/14/16 12:00 Vital Signs / I&O Vital Signs Date Time Temp Pulse Resp B/P Pulse Ox O2 Delivery O2 Flow Rate FiO2 12/14/16 11:48 96 Venturi Mask 6.00 50 12/14/16 11:22 122/73 82 12/14/16 11:15 83/72 78 12/14/16 07:36 97.2 78 17 126/73 92 12/14/16 04:40 97.0 68 18 135/67 92 12/14/16 00:50 96.8 66 17 118/67 93 12/13/16 20:20 96.7 79 17 142/67 92 12/13/16 19:43 High Flow Nasal Cannula 6.00 12/13/16 18:00 96.2 68 12 118/69 91 12/13/16 17:00 98.3 78 20 151/68 95 Nasal Cannula 3 12/13/16 16:00 78 26 127/68 93 Nasal Cannula 3 12/13/16 15:00 74 21 115/68 92 Nasal Cannula 3 12/13/16 14:00 74 19 119/71 93 Nasal Cannula 3 12/13/16 13:30 75 19 121/68 93 Nasal Cannula 3 12/13/16 13:15 77 24 129/78 91 Nasal Cannula 4 12/13/16 13:00 73 20 131/67 93 Nasal Cannula 4 I/O 12/13/16 12/13/16 12/13/16 12/14/16 12/14/16 12/14/16 07:00 15:00 23:00 07:00 15:00 23:00 Intake Total 1300 ml 1288 ml 480 ml Output Total 230 ml 1200 ml 500 ml Balance 1070 ml 88 ml 480 ml -500 ml Intake Oral 440 ml 480 ml IV Total 848 ml Other 1300 ml Output Urine Total 200 ml 1200 ml 500 ml Estimated Blood Loss 30 ml # Voids 2 # Bowel Movements 0 1 Physical Exam GENERAL: Mild respiratory distress SKIN: Warm and dry. HEAD: Atraumatic. Normocephalic. EYES: Pupils equal and round. No scleral icterus. No injection or drainage. ENT: No nasal bleeding or discharge. Mucous membranes pink and moist. NECK: Trachea midline. No JVD. CARDIOVASCULAR: Regular rate and rhythm. RESPIRATORY: No accessory muscle use. Decreased breath sounds with mild rales at the bases and wheezing throughout GASTROINTESTINAL: Abdomen soft, non-tender, nondistended. Hepatic and splenic margins not palpable. MUSCULOSKELETAL: Extremities without clubbing, cyanosis, or edema. No obvious deformities. NEUROLOGICAL: Awake and alert. No obvious cranial nerve deficits. Motor grossly within normal limits. Five out of 5 muscle strength in the arms and legs. Normal speech. PSYCHIATRIC: Appropriate mood and affect; insight and judgment normal. Laboratory Laboratory Tests Test 12/14/16 09:30 Blood Gas Puncture Site RT RADIAL Blood Gas Patient Temperature 98.6 Blood Gas HCO3 21 mmol/L Blood Gas Base Excess -4.5 mmol/L Blood Gas Oxygen Saturation 86 % Arterial Blood pH 7.32 Arterial Blood Partial 41 mmHg Pressure CO2 Arterial Blood Partial 58 mmHg Pressure O2 Arterial Blood Oxygen Content 15.9 Vol % Arterial Blood 1.7 % Carboxyhemoglobin Arterial Blood Methemoglobin 1.4 % Blood Gas Hemoglobin 13.1 G/DL Oxygen Delivery Device VENTIMASK Blood Gas Inspired Oxygen 50 % Assessment and Plan Problem List: (1) Acute heart failure with normal ejection fraction (2) Fluid overload (3) Bigeminy (4) PVC (premature ventricular contraction) Assessment and Plan 1) Acute fluid overload most likely due to fluids intra- and post-operative 2) Diuresing well after Lasix 40mg IV 3) Agree with upgrading the patient CIC or ICU to be watched 4) Will check echocardiogram Depending on hospital course, but if EF is normal then plan for diuresis and follow up with Dr. Foster in the outpatient setting for consideration of stress testing If EF is decreased, then will consider further ischemic evaluation 5) Bigeminy history, no further events over night Andrew Knuston DO December 14, 2016 12:58
[2016-12-14] MEDS: RESP: BUDESONIDE 0.5 MG/2 ML NEB NEB SCH ×2 (13:23→19:17)
[2016-12-14 14:38] LABS: AUTOMATED NEUTROPHIL # 17.2 TH/MM3 (1.8-7.7); BASOPHIL % 0.1 % (0.0-2.0); HEMO FLAGS DIFF FINAL; LYMPH % 3.6 % (9.0-44.0); LYMPHOCYTE # 0.7 TH/MM3 (1.0-4.8); MEAN CELL VOLUME 93.2 FL (80.0-100.0); MEAN CORPUSCULAR HEMOGLOBIN 30.8 PG (27.0-34.0); NEUT % 91.3 % (16.0-70.0); PLATELET COUNT 211 TH/MM3 (150-450); RED BLOOD COUNT 4.19 MIL/MM3 (4.00-5.30); RED CELL DISTRIBUTION WIDTH 14.3 % (11.6-17.2); WHITE BLOOD COUNT 18.9 TH/MM3 (4.0-11.0)
[2016-12-14 15:01] LABS: ALKALINE PHOSPHATASE 77 U/L (45-117); ALT (GPT) 23 U/L (10-53); ANION GAP 6 MEQ/L (5-15); AST (GOT) 28 U/L (15-37); BICARBONATE 24.7 MEQ/L (21.0-32.0); BLOOD UREA NITROGEN 15 MG/DL (7-18); CHLORIDE 111 MEQ/L (98-107); GLOMERULAR FILTRATION RATE 60 ML/MIN (>89); POTASSIUM 4.6 MEQ/L (3.5-5.1); SODIUM (NA) 142 MEQ/L (136-145); TOTAL BILIRUBIN ADULT 0.2 MG/DL (0.2-1.0)
--- NOTE | 2016-12-14 17:11 | EC ---
Study Study Date:12/14/2016 STUDY CONCLUSIONS SUMMARY LEFT VENTRICLE: The cavity size was dilated. Wall thickness was normal. Systolic function was at the lower limits of normal by visual assessment. The estimated ejection fraction was 50%. Diffuse hypokinesis. If LV function is below 40, please consider prescribing an ACEI or ARB or document rationale for non-use. PROCEDURE DATA STUDY STATUS: Elective. Procedure: Transthoracic echocardiography. Image quality was good. Scanning was performed from the parasternal, apical, and subcostal acoustic windows. Study completion: The patient tolerated the procedure well. Transthoracic echocardiography. M-mode, complete 2D, complete spectral Doppler, and color Doppler. Height: Height: 65in. Weight: Weight: 231.5lb. Body mass index: BMI: 38.6kg/m^2. Body surface area: BSA: 2.11m^2. Patient status: Inpatient. CARDIAC ANATOMY LEFT VENTRICLE: The cavity size was dilated. Wall thickness was normal. Systolic function was at the lower limits of normal by visual assessment. The estimated ejection fraction was 50%. Diffuse hypokinesis. AORTIC VALVE: Trileaflet; normal thickness leaflets. Doppler: Transvalvular velocity was within the normal range. There was no stenosis. No regurgitation. AORTA: Aortic root: The aortic root was normal in size. MITRAL VALVE: Structurally normal valve. Doppler: Transvalvular velocity was within the normal range. There was no evidence for stenosis. Trace regurgitation. Peak gradient: 3mm Hg (D). LEFT ATRIUM: The atrium was normal in size. RIGHT VENTRICLE: The cavity size was normal. Wall thickness was normal. PULMONIC VALVE: Doppler: Transvalvular velocity was within the normal range. There was no evidence for stenosis. No regurgitation. TRICUSPID VALVE: Structurally normal valve. Doppler: Transvalvular velocity was within the normal range. Trace to mild regurgitation. PULMONARY ARTERY: The main pulmonary artery was normal-sized. Systolic pressure was within the normal range. RIGHT ATRIUM: The atrium was normal in size. PERICARDIUM: There was no pericardial effusion. SYSTEMIC VEINS: Inferior vena cava: The vessel was normal in size. Patient weight: 231.5lb _Ejection fraction:_ 65-75% _Fractional shortening:_ 32% up to 5Kg 5-11.5Kg 11.6-22.9Kg 23-45Kg 45-57Kg Aortic Root 7-13 <17 13-22 17-27 17-27 LA diam 6-13 <23 24-38 33-47 37-40 RVID 10-17 7-15 7-15 7-18 8-17 LVIDd 12-22 <32 24-38 33-47 37-40 LVPW 2-4 3-6 5-7 6-8 7-8 IVS 2-4 3-6 5-7 6-8 7-8 BASIC MEASUREMENTS ADULT NORMAL Left ventricle LV internal dimension, ED, chordal level, *56.3 mm 43-52 PLAX LV internal dimension, ES, chordal level, *43.9 mm 23-38 PLAX Fractional shortening, chordal level, PLAX *22 % >29 LV posterior wall thickness, ED 7.11 mm IVS/LVPW ratio, ED 1.04 <1.3 Ventricular septum Septal thickness, ED 7.4 mm Aortic valve Leaflet separation 18 mm 15-26 Aorta Root diameter, ED 31 mm Right ventricle RV internal dimension, ED, PLAX 27.9 mm 19-38 BASIC MEASUREMENTS ADULT NORMAL Aortic valve Leaflet separation 18 mm 15-26 DOPPLER MEASUREMENTS ADULT NORMAL Mitral valve Peak E-wave velocity 91.8 cm/s Peak A-wave velocity 104 cm/s Deceleration time 204 ms 150-230 Peak gradient, D 3 mm Hg Peak E/A ratio 0.9 Pulmonic valve Peak velocity, S 66.2 cm/s LEGEND: Mean values are shown as u=mean value. Asterisk (*) acuna values outside specified normal range. Prepared and signed by Jerad Bennett [id number]
[2016-12-14] MEDS: PRAVASTATIN SOD 40 MG TAB PO SCH (20:05)
[2016-12-15] VITALS (11 sets, daily range): BP systolic 117–158; BP diastolic 57–86; PULSE 70–90; RESP 13–20; TEMP 96.6–98.5; O2SAT 89–95
[2016-12-15] MEDS: RESP: ALBUTEROL 2.5 MG/IPRATROPIUM 0.5 MG NEB (SCH) NEB ×5 (02:58→21:50)
[2016-12-15] MEDS: RESP: BUDESONIDE 0.5 MG/2 ML NEB NEB SCH ×2 (07:58→21:50)
--- NOTE | 2016-12-15 08:48 | PD.CARD.PN ---
Subjective Subjective Remarks Denies dyspnea, CP, dizziness, palpitations. Slept very well. Objective Medications Item Value Date Time Lisinopril 20 mg 12/14/16 0900 (Prinivil) DAILY/PO 12/14/16 0845 Metoprolol 50 mg 12/13/16 2200 Succinate BID/PO 12/14/162002 (Toprol Xl) Pravastatin Sodium 40 mg 12/13/162099 (Pravachol) HS/PO Amlodipine 5 mg 12/13/16 1315 Besylate DAILY/PO 12/14/16 0845 (Norvasc) Vital Signs / I&O Vital Signs Date Time Temp Pulse Resp B/P Pulse Ox O2 Delivery O2 Flow Rate FiO2 12/15/16 08:00 90 Venturi Mask 50 12/15/16 03:55 98.1 70 13 145/84 91 12/14/16 23:55 98.2 77 15 150/80 90 12/14/16 23:00 70 12/14/16 19:55 98.2 80 22 149/75 94 Arterial Line 12/14/16 19:18 89 Venturi Mask 50 12/14/16 18:00 75 12/14/16 16:00 98.4 71 22 123/65 91 12/14/16 16:00 71 12/14/16 12:15 98.5 79 18 145/77 92 12/14/16 12:00 79 12/14/16 11:48 96 Venturi Mask 6.00 50 12/14/16 11:22 122/73 82 12/14/16 11:15 83/72 78 12/14/16 11:00 97.4 62 19 137/87 93 I/O 12/14/16 12/14/16 12/14/16 12/15/16 12/15/16 12/15/16 07:00 15:00 23:00 07:00 15:00 23:00 Intake Total 480 ml 240 ml 840 ml 240 ml Output Total 1250 ml 1125 ml 675 ml Balance 480 ml -1010 ml -285 ml -435 ml Intake Oral 480 ml 240 ml 840 ml 240 ml Output Urine Total 1250 ml 1125 ml 675 ml # Voids 2 0 0 # Bowel Movements 1 0 0 0 Physical Exam GENERAL: Well developed, well nourished. No acute distress. HEENT: Jugular venous pressure is normal. CHEST: Lungs clear to auscultation bilaterally. Unlabored respiratory effort. CARDIAC: Regular rate and rhythm without S3, S4, or murmur. ABDOMEN: Soft, nontender, no hepatosplenomegaly. Bowel sounds present. EXTREMITIES: No clubbing, cyanosis, or edema. Laboratory Laboratory Tests Test 12/14/16 12/14/16 12/14/16 09:30 12:15 13:43 Blood Gas Puncture Site RT RADIAL Blood Gas Patient Temperature 98.6 Blood Gas HCO3 21 mmol/L Blood Gas Base Excess -4.5 mmol/L Blood Gas Oxygen Saturation 86 % Arterial Blood pH 7.32 Arterial Blood Partial 41 mmHg Pressure CO2 Arterial Blood Partial 58 mmHg Pressure O2 Arterial Blood Oxygen Content 15.9 Vol % Arterial Blood 1.7 % Carboxyhemoglobin Arterial Blood Methemoglobin 1.4 % Blood Gas Hemoglobin 13.1 G/DL Oxygen Delivery Device VENTIMASK Blood Gas Inspired Oxygen 50 % Nasal Screen MRSA (PCR) MRSA NOT DETECTED White Blood Count 18.9 TH/MM3 Red Blood Count 4.19 MIL/MM3 Hemoglobin 12.9 GM/DL Hematocrit 39.0 % Mean Corpuscular Volume 93.2 FL Mean Corpuscular Hemoglobin 30.8 PG Mean Corpuscular Hemoglobin 33.0 % Concent Red Cell Distribution Width 14.3 % Platelet Count 211 TH/MM3 Mean Platelet Volume 9.0 FL Neutrophils (%) (Auto) 91.3 % Lymphocytes (%) (Auto) 3.6 % Monocytes (%) (Auto) 5.0 % Eosinophils (%) (Auto) 0.0 % Basophils (%) (Auto) 0.1 % Neutrophils # (Auto) 17.2 TH/MM3 Lymphocytes # (Auto) 0.7 TH/MM3 Monocytes # (Auto) 0.9 TH/MM3 Eosinophils # (Auto) 0.0 TH/MM3 Basophils # (Auto) 0.0 TH/MM3 CBC Comment DIFF FINAL Differential Comment Sodium Level 142 MEQ/L Potassium Level 4.6 MEQ/L Chloride Level 111 MEQ/L Carbon Dioxide Level 24.7 MEQ/L Anion Gap 6 MEQ/L Blood Urea Nitrogen 15 MG/DL Creatinine 0.93 MG/DL Estimat Glomerular Filtration 60 ML/MIN Rate Random Glucose 124 MG/DL Calcium Level 8.9 MG/DL Total Bilirubin 0.2 MG/DL Aspartate Amino Transf 28 U/L (AST/SGOT) Alanine Aminotransferase 23 U/L (ALT/SGPT) Alkaline Phosphatase 77 U/L Total Protein 6.6 GM/DL Albumin 3.0 GM/DL Imaging Last 48 hours Impressions Chest X-Ray 12/14/16 0934 Signed Impressions: Service Date/Time: November 09:34 - CONCLUSION: 1. Mild cardiomegaly with possible mild edema pattern and basilar atelectasis. Sae Lin MD Assessment and Plan Problem List: (1) Congestive heart failure (CHF) Assessment and Plan: Stable overnight. Good diuresis past 24 hours. Echo shows low normal left ventricular function, EF ~50%. No evidence overall for acute coronary syndrome. REC OK to discharge home from cardiac standpoint, f/u with Dr. Willy Foster in 3-4 weeks continue metoprolol, LOBITO-I rec daily oral Lasix 20 mg (2) PVC (premature ventricular contraction) Assessment and Plan: Patient asymptomatic. Cont beta lien. (3) Hypertension Assessment and Plan: Fluctuating BP's. Rec outpatient monitoring, medication adjustment. Code Status full code Discussed Condition With patient Problem Qualifiers (1) Congestive heart failure (CHF): Qualified Code: I50.21 - Acute systolic congestive heart failure (2) Hypertension: Qualified Code: I10 - Essential hypertension Adrian Encarnacion MD December 15, 2016 08:48
[2016-12-15] MEDS: SODIUM CHLORIDE 0.9% FLUSH 5 ML FLUSH IVF SCH ×2 (09:00→19:58)
[2016-12-15] MEDS: BUDESONIDE-FORMOTEROL 160/4.5 MCG INHALER INH SCH ×2 (09:00→20:00)
[2016-12-15] MEDS: amLODIPine BESYLATE 5 MG TAB PO SCH (09:12)
[2016-12-15] MEDS: PANTOPRAZOLE SOD 40 MG DELAYED RELEASE TAB PO SCH (09:12)
[2016-12-15] MEDS: LISINOPRIL 20 MG TAB PO SCH (09:12)
[2016-12-15] MEDS: guaiFENesin E.R. 600 MG TAB PO SCH ×2 (09:12→19:57)
[2016-12-15] MEDS: FUROSEMIDE 20 MG TAB PO SCH (09:12)
[2016-12-15] MEDS: DOCUSATE SODIUM 100 MG CAP PO SCH ×2 (09:13→19:56)
[2016-12-15] MEDS: METOPROLOL SUCCINATE 50 MG EXTENDED RELEASE TAB PO SCH ×2 (09:14→19:56)
[2016-12-15] MEDS: ACETAMINOPHEN/HYDROcodone 325 MG/10 MG TAB PO PRN ×3 (09:14→22:18)
[2016-12-15] MEDS: CYANOCOBALAMIN 1,000 MCG TAB PO SCH (09:14)
[2016-12-15] MEDS: GABAPENTIN 300 MG CAP PO SCH ×2 (09:14→19:56)
[2016-12-15] MEDS ORDERED: FURO20TA PO (13:33)
--- NOTE | 2016-12-15 13:41 | HHI.NSPN ---
(Tuyet Haywood) Note Status Status: Progress Note (Tuyet Haywood) Interval History Interval History Ms. Rodrigez is a 66 year old female s/p lumbar decompressive laminectomy and microdiscectomy on 12/13/16. Post-op she developed arrhythmias and Cardiology consulted. 12/14: c/o of shortness of breath, denies chest pain. respiratory paged for breathing tx. 12/15: breathing better but still requires oxygen supplementation, 90% O2 sats. (Tuyet Haywood) Labs, Micro, & Vital Signs Results Date Time Temp Pulse Resp B/P Pulse Ox O2 Delivery O2 Flow Rate FiO2 12/15/16 08:00 90 Venturi Mask 50 12/15/16 07:00 79 12/15/16 03:55 98.1 70 13 145/84 91 12/14/16 23:55 98.2 77 15 150/80 90 12/14/16 23:00 70 12/14/16 19:55 98.2 80 22 149/75 94 Arterial Line 12/14/16 19:18 89 Venturi Mask 50 12/14/16 18:00 75 12/14/16 16:00 98.4 71 22 123/65 91 12/14/16 16:00 71 12/15/16 07:00 Intake Total 1320 ml Output Total 3050 ml Balance -1730 ml Constitutional Vital Signs Date Time Temp Pulse Resp B/P Pulse Ox O2 Delivery O2 Flow Rate FiO2 12/15/16 08:00 90 Venturi Mask 50 12/15/16 07:00 79 12/15/16 03:55 98.1 70 13 145/84 91 12/14/16 23:55 98.2 77 15 150/80 90 12/14/16 23:00 70 12/14/16 19:55 98.2 80 22 149/75 94 Arterial Line 12/14/16 19:18 89 Venturi Mask 50 12/14/16 18:00 75 12/14/16 16:00 98.4 71 22 123/65 91 12/14/16 16:00 71 12/15/16 07:00 Intake Total 1320 ml Output Total 3050 ml Balance -1730 ml (Tuyet Haywood) Review of Systems/Exam Exam Alert and oriented x 3. Speech is fluent. Wound is clean and dry. Glued dressing intact. Motor: moves right leg 4/5 proximal, 5/5 distal, left leg 5/5. moves upper extremities well Heart: NSR Lung: slight wheezing to right upper lung field Ext: no edema or pain to palpation CN: pupils equal, facial motor symmetric Skin: warm , dry. no cyanosis or erythema (Tuyet Haywood) Medications Current Medications Current Medications Medications (Trade) Dose Ordered Sig/Zoran Route PRN Reason Start Time Stop Time Status Last Admin Dose Admin Sodium Chloride (NS 500 ml Inj) 500 ml @ 30 mls/hr [id number] PRN IV SEE LABEL COMMENTS 12/13/16 06:45 12/16/16 06:44 IV Flush (NS Flush) 2 ml UNSCH PRN IVF FLUSH AFTER USING IV ACCESS 12/13/16 12:00 IV Flush (NS Flush) 2 ml BID IVF 12/13/16 12:00 12/14/16 20:05 Docusate Sodium (Colace) 100 mg BID PO 12/13/16 13:00 12/15/16 09:13 Magnesium Hydroxide (Milk Of Magnesia Liq) 30 ml DAILY PRN PO CONSTIPATION 12/13/16 12:00 Pantoprazole Sodium (Protonix) 40 mg DAILY PO 12/13/16 13:00 12/15/16 09:12 Ondansetron HCl (Zofran Inj) 4 mg Q6H PRN IV NAUSEA OR VOMITING 12/13/16 12:00 Acetaminophen/ Hydrocodone Bitart ([place] 10-325 Mg) 1 tab Q4H PRN PO PAIN SCALE 1 TO 5 12/13/16 12:00 Acetaminophen/ Hydrocodone Bitart ([place] 10-325 Mg) 2 tab Q4H PRN PO PAIN SCALE 6 TO 10 12/13/16 12:00 12/15/16 09:14 Morphine Sulfate (Morphine Inj) 2 mg Q2H PRN IV PUSH PAIN SCALE 1 TO 6 12/13/16 12:00 Morphine Sulfate (Morphine Inj) 4 mg Q2H PRN IV PUSH PAIN SCALE 7 TO 10 12/13/16 12:00 Clonidine (Catapres) 0.1 mg Q6H PRN PO/NG SYS BP GREATER THAN 170 MMHG 12/13/16 12:00 Acetaminophen (Tylenol) 650 mg Q4H PRN PO TEMPERATURE > 101.5 F 12/13/16 12:00 Menthol ([place] Mariela) 1 lozenge UNSCH PRN BUCCAL SORE THROAT 12/13/16 12:00 Budesonide/ Formoterol Fumarate (Symbicort 160-4.5 Inh) 1 puff BID INH 12/13/16 21:00 12/14/16 20:07 Cyanocobalamin (Vitamin B12) 2,000 mcg DAILY PO 12/14/16 09:00 12/15/16 09:14 Gabapentin (Neurontin) 300 mg BID PO 12/13/16 21:00 12/15/16 09:14 Pravastatin Sodium (Pravachol) 40 mg HS PO 12/13/16 21:00 Amlodipine Besylate (Norvasc) 5 mg DAILY PO 12/13/16 13:15 12/15/16 09:12 Lisinopril (Prinivil) 20 mg DAILY PO 12/14/16 09:00 12/15/16 09:12 Metoprolol Succinate (Toprol Xl) 50 mg BID PO 12/13/16 22:00 12/15/16 09:14 Guaifenesin (Mucinex Er) 600 mg BID PO 12/14/16 12:00 12/15/16 09:12 Furosemide (Lasix) 20 mg DAILY PO 12/15/16 09:00 12/15/16 09:12 (Tuyet Haywood) Medical Decision Making MDM Remarks 66 y/o female s/p lumbar laminectomy and microdiscectomy 12/13/16 Arrhythmia, resolved Asthma/COPD exacerbation (Tuyet Haywood) Plan Plan Remarks cont Lasix cont neb treatment and supplemental oxygen IS every hour SCDs and TEDs for dvt prophylaxis physical therapy cardiology and medicine following (Tuyet Haywood) Attending Statement The exam, history, and the medical decision-making described in the above note were completed with the assistance of the mid-level provider. I reviewed and agree with the findings presented. I attest that I had a [id number] encounter with the patient on the same day, and personally performed and documented my assessment and findings in the medical record. (Frank De La Cruz MD) Tuyet Haywood December 15, 2016 13:41 Frank De La Cruz MD December 18, 2016 12:51
--- NOTE | 2016-12-15 15:17 | HHI.PR ---
Subjective Remarks This is a pleasant 66 y/o Female who has COPD, Hypertension, OA, TIA, Peripheral Artery Disease Who came to this Facility on December 13, 2016 for Elective Surgery, status post L2- L3, L4-L5 Hemilaminectomy, Facetectomy, Foraminectomy, Microsurgical resection of disc, she is been seen by cardiopulmonary specialist due to Bigeminy and then had sinus rhythm with Occasional PVCs, rhythm with PVCs occasionally, having some Shortness of breath, Dizziness, Lightheadedness, as per cardiopulmonary specialist okay to discharge home, this morning, she developed Shortness of breath with Hypoxemia, Rapid response team and certified technician specialist in to see patient and recommended diuretics and respiratory treatment. 12/15: Stable seen in her bedroom in the presence of nurse Miss Vasques, no new issues, no nausea, vomit or diarrhea, continue on 4 L/min of Oxygen, as per neurosurgery okay to discharge once Oxygen titrated down. Objective Vital Signs Date Time Temp Pulse Resp B/P Pulse Ox O2 Delivery O2 Flow Rate FiO2 12/15/16 15:00 78 12/15/16 12:00 98.2 86 17 138/76 91 12/15/16 08:00 98.4 73 15 156/86 95 12/15/16 08:00 90 Venturi Mask 50 12/15/16 07:00 79 12/15/16 03:55 98.1 70 13 145/84 91 12/14/16 23:55 98.2 77 15 150/80 90 12/14/16 23:00 70 12/14/16 19:55 98.2 80 22 149/75 94 Arterial Line 12/14/16 19:18 89 Venturi Mask 50 12/14/16 18:00 75 12/14/16 16:00 98.4 71 22 123/65 91 12/14/16 16:00 71 I/O 12/14/16 12/14/16 12/14/16 12/15/16 12/15/16 12/15/16 07:00 15:00 23:00 07:00 15:00 23:00 Intake Total 480 ml 240 ml 840 ml 240 ml 240 ml Output Total 1250 ml 1125 ml 675 ml 1400 ml Balance 480 ml -1010 ml -285 ml -435 ml -1160 ml Intake Oral 480 ml 240 ml 840 ml 240 ml 240 ml Output Urine Total 1250 ml 1125 ml 675 ml 1400 ml # Voids 2 0 0 # Bowel Movements 1 0 0 0 0 Result Diagram: 12/14/16 1343 12/14/16 1343 Imaging Last Impressions Chest X-Ray 12/14/16 0934 Signed Impressions: Service Date/Time: November 09:34 - CONCLUSION: 1. Mild cardiomegaly with possible mild edema pattern and basilar atelectasis. Sae Lin MD Lumbar Spine X-Ray 12/13/16 0000 Signed Impressions: Service Date/Time: Tuesday, December 13, 2016 08:59 - CONCLUSION: Lumbar level localization as above Ben Zaragoza MD Procedures Status post L2/3, L4/5 hemilaminectomy, foraminotomy, mesiofacetectomy, microsurgical disc resection. Other Results Laboratory Tests Test 12/13/16 12/14/16 12/14/16 12/14/16 12:30 09:30 12:15 13:43 Magnesium Level 1.9 MG/DL Blood Gas Puncture Site RT RADIAL Blood Gas Patient Temperature 98.6 Blood Gas HCO3 21 mmol/L Blood Gas Base Excess -4.5 mmol/L Blood Gas Oxygen Saturation 86 % Arterial Blood pH 7.32 Arterial Blood Partial 41 mmHg Pressure CO2 Arterial Blood Partial 58 mmHg Pressure O2 Arterial Blood Oxygen Content 15.9 Vol % Arterial Blood 1.7 % Carboxyhemoglobin Arterial Blood Methemoglobin 1.4 % Blood Gas Hemoglobin 13.1 G/DL Oxygen Delivery Device VENTIMASK Blood Gas Inspired Oxygen 50 % Nasal Screen MRSA (PCR) MRSA NOT DETECTED White Blood Count 18.9 TH/MM3 Red Blood Count 4.19 MIL/MM3 Hemoglobin 12.9 GM/DL Hematocrit 39.0 % Mean Corpuscular Volume 93.2 FL Mean Corpuscular Hemoglobin 30.8 PG Mean Corpuscular Hemoglobin 33.0 % Concent Red Cell Distribution Width 14.3 % Platelet Count 211 TH/MM3 Mean Platelet Volume 9.0 FL Neutrophils (%) (Auto) 91.3 % Lymphocytes (%) (Auto) 3.6 % Monocytes (%) (Auto) 5.0 % Eosinophils (%) (Auto) 0.0 % Basophils (%) (Auto) 0.1 % Neutrophils # (Auto) 17.2 TH/MM3 Lymphocytes # (Auto) 0.7 TH/MM3 Monocytes # (Auto) 0.9 TH/MM3 Eosinophils # (Auto) 0.0 TH/MM3 Basophils # (Auto) 0.0 TH/MM3 CBC Comment DIFF FINAL Differential Comment Sodium Level 142 MEQ/L Potassium Level 4.6 MEQ/L Chloride Level 111 MEQ/L Carbon Dioxide Level 24.7 MEQ/L Anion Gap 6 MEQ/L Blood Urea Nitrogen 15 MG/DL Creatinine 0.93 MG/DL Estimat Glomerular Filtration 60 ML/MIN Rate Random Glucose 124 MG/DL Calcium Level 8.9 MG/DL Total Bilirubin 0.2 MG/DL Aspartate Amino Transf 28 U/L (AST/SGOT) Alanine Aminotransferase 23 U/L (ALT/SGPT) Alkaline Phosphatase 77 U/L Total Protein 6.6 GM/DL Albumin 3.0 GM/DL Objective Remarks GENERAL: Obese, Mild respiratory distress. on nasal Cannula. SKIN: No rashes, ecchymoses or lesions. Cool and dry. HEAD: Atraumatic. Normocephalic. No temporal or scalp tenderness. EYES: Pupils equal round and reactive. Extraocular motions intact. No scleral icterus. No injection or drainage. ENT: Nose without bleeding, purulent drainage or septal hematoma. Throat without erythema, tonsillar hypertrophy or exudate. Uvula midline. Airway patent. NECK: Trachea midline. No JVD or lymphadenopathy. Supple, nontender, no meningeal signs. CARDIOVASCULAR: Regular rate and rhythm without murmurs, gallops, or rubs. RESPIRATORY: Decreased breath sounds bilateral, with mild expiratory wheezing, no crackles. GASTROINTESTINAL: Abdomen soft, non-tender, nondistended. No hepato-splenomegaly , or palpable masses. No guarding. MUSCULOSKELETAL: Extremities without clubbing, cyanosis, or edema. NEUROLOGICAL: Awake and alert. No focal deficits. Medications and IVs Current Medications Medications (Trade) Dose Ordered Sig/Zoran Route Start Time Stop Time Status Last Admin (NS 500 ml Inj) 500 ml @ 30 mls/hr [id number] PRN IV 12/13/16 06:45 12/16/16 06:44 (NS Flush) 2 ml UNSCH PRN IVF 12/13/16 12:00 (NS Flush) 2 ml BID IVF 12/13/16 12:00 12/15/16 09:00 (Colace) 100 mg BID PO 12/13/16 13:00 12/15/16 09:13 (Milk Of Magnesia Liq) 30 ml DAILY PRN PO 12/13/16 12:00 (Protonix) 40 mg DAILY PO 12/13/16 13:00 12/15/16 09:12 (Zofran Inj) 4 mg Q6H PRN IV 12/13/16 12:00 ([place] 10-325 Mg) 1 tab Q4H PRN PO 12/13/16 12:00 ([place] 10-325 Mg) 2 tab Q4H PRN PO 12/13/16 12:00 12/15/16 09:14 (Morphine Inj) 2 mg Q2H PRN IV PUSH 12/13/16 12:00 (Morphine Inj) 4 mg Q2H PRN IV PUSH 12/13/16 12:00 (Catapres) 0.1 mg Q6H PRN PO/NG 12/13/16 12:00 (Tylenol) 650 mg Q4H PRN PO 12/13/16 12:00 ([place] Mariela) 1 lozenge UNSCH PRN BUCCAL 12/13/16 12:00 (Symbicort 160-4.5 Inh) 1 puff BID INH 12/13/16 21:00 12/15/16 09:00 (Vitamin B12) 2,000 mcg DAILY PO 12/14/16 09:00 12/15/16 09:14 (Neurontin) 300 mg BID PO 12/13/16 21:00 12/15/16 09:14 (Pravachol) 40 mg HS PO 12/13/16 21:00 (Norvasc) 5 mg DAILY PO 12/13/16 13:15 12/15/16 09:12 (Prinivil) 20 mg DAILY PO 12/14/16 09:00 12/15/16 09:12 (Toprol Xl) 50 mg BID PO 12/13/16 22:00 12/15/16 09:14 (Mucinex Er) 600 mg BID PO 12/14/16 12:00 12/15/16 09:12 (Lasix) 20 mg DAILY PO 12/15/16 09:00 12/15/16 09:12 A/P Assessment and Plan 1. Respiratory failure multifactorial, patient on IV fluids probable moderate volume overload, seen left Pleural effusion edema on CXR, given already Diuretics as per Critical Care and following, for COPD exacerbation will continue respiratory therapy, Incentive spirometry, Mucolytics, Nebulized steroids and Steroids. at this time on oxygen 4 L/min. may be able to be discharged tomorrow probable may need oxygen to go home. 2. Degenerative Disk disease, with Status post L2/3, L4/5 hemilaminectomy, foraminotomy, Mesiofacetectomy, microsurgical disc resection. 3. COPD with probable mild exacerbation. 4. TIA by history 5. Peripheral Artery disease by history 6. Bigeminy recent Echocardiogram with Normal EF as per cardiopulmonary specialist. recommended to be performed Stress test as outpatient. by her Primary cardiopulmonary specialist Doctor cristina Melton for discharge from Cardiology 7. Hypertension controlled. DVT prophylaxis SCDs Code Status Full code. Discussed Condition With Patient and nurse, all questions answered to the best of my abilities. Discharge Planning Expected by tomorrow. Americo Foreman MD December 15, 2016 15:17
[2016-12-15] MEDS: predniSONE 20 MG TAB PO SCH (16:00)
[2016-12-15] MEDS: PRAVASTATIN SOD 40 MG TAB PO SCH (19:57)
[2016-12-16] VITALS (14 sets, daily range): BP systolic 130–168; BP diastolic 74–87; PULSE 62–94; RESP 18–19; TEMP 96.2–97.8; O2SAT 92–97
[2016-12-16] MEDS: RESP: ALBUTEROL 2.5 MG/IPRATROPIUM 0.5 MG NEB (SCH) NEB ×7 (04:05→23:57)
[2016-12-16 07:33] LABS: BICARBONATE 29.7 MEQ/L (21.0-32.0); MAGNESIUM 2.2 MG/DL (1.5-2.5); POTASSIUM 4.1 MEQ/L (3.5-5.1)
[2016-12-16] MEDS: amLODIPine BESYLATE 5 MG TAB PO SCH (08:26)
[2016-12-16] MEDS: DOCUSATE SODIUM 100 MG CAP PO SCH ×2 (08:26→21:47)
[2016-12-16] MEDS: PANTOPRAZOLE SOD 40 MG DELAYED RELEASE TAB PO SCH (08:26)
[2016-12-16] MEDS: LISINOPRIL 20 MG TAB PO SCH (08:26)
[2016-12-16] MEDS: CYANOCOBALAMIN 1,000 MCG TAB PO SCH (08:26)
[2016-12-16] MEDS: METOPROLOL SUCCINATE 50 MG EXTENDED RELEASE TAB PO SCH ×2 (08:27→21:47)
[2016-12-16] MEDS: predniSONE 20 MG TAB PO SCH (08:27)
[2016-12-16] MEDS: GABAPENTIN 300 MG CAP PO SCH ×2 (08:27→21:47)
[2016-12-16] MEDS: FUROSEMIDE 20 MG TAB PO SCH (08:27)
[2016-12-16] MEDS: guaiFENesin E.R. 600 MG TAB PO SCH ×2 (08:27→21:47)
[2016-12-16] MEDS: SODIUM CHLORIDE 0.9% FLUSH 5 ML FLUSH IVF SCH ×2 (08:28→21:00)
[2016-12-16] MEDS: BUDESONIDE-FORMOTEROL 160/4.5 MCG INHALER INH SCH ×2 (08:28→21:45)
[2016-12-16] MEDS: ACETAMINOPHEN/HYDROcodone 325 MG/10 MG TAB PO PRN ×2 (08:30→18:25)
--- NOTE | 2016-12-16 08:41 | HHI.PR ---
Subjective Remarks This is a pleasant 66 y/o Female who has COPD, Hypertension, OA, TIA, Peripheral Artery Disease Who came to this Facility on December 13, 2016 for Elective Surgery, status post L2- L3, L4-L5 Hemilaminectomy, Facetectomy, Foraminectomy, Microsurgical resection of disc, she is been seen by certification and selection specialist due to Bigeminy and then had sinus rhythm with Occasional PVCs, rhythm with PVCs occasionally, having some Shortness of breath, Dizziness, Lightheadedness, as per certification and selection specialist okay to discharge home, this morning, she developed Shortness of breath with Hypoxemia, Rapid response team and foreclosure specialist in to see patient and recommended diuretics and respiratory treatment. 12/15: Stable seen in her bedroom in the presence of nurse Miss Vasques, no new issues, on 4 L/min of Oxygen, Neurosurgery planning to Discharge once Oxygen titrated down. 12/16: Seen in her bedroom receiving respiratory therapy, may need to titrate Oxygen today and asked for six minutes walk to evaluate for the need for Oxygen at home. no nausea, vomit or diarrhea. Objective Vital Signs Date Time Temp Pulse Resp B/P Pulse Ox O2 Delivery O2 Flow Rate FiO2 12/16/16 07:27 96.8 68 19 168/86 95 12/16/16 07:08 72 12/16/16 04:01 97.5 70 18 155/87 97 12/15/16 23:15 96.9 87 18 117/60 92 12/15/16 22:20 90 12/15/16 21:54 93 Nasal Cannula 4.00 12/15/16 19:54 96.6 87 18 117/57 92 12/15/16 18:40 Nasal Cannula 4.00 12/15/16 16:05 90 Nasal Cannula 4.00 12/15/16 16:00 98.5 78 20 158/78 89 12/15/16 15:00 78 12/15/16 12:00 98.2 86 17 138/76 91 I/O 12/15/16 12/15/16 12/15/16 12/16/16 12/16/16 12/16/16 07:00 15:00 23:00 07:00 15:00 23:00 Intake Total 240 ml 240 ml 360 ml 360 ml Output Total 675 ml 1400 ml 850 ml 1150 ml Balance -435 ml -1160 ml -490 ml -790 ml Intake Oral 240 ml 240 ml 360 ml 360 ml Output Urine Total 675 ml 1400 ml 850 ml 1150 ml # Bowel Movements 0 0 0 0 Result Diagram: 12/14/16 1343 12/16/16 0600 Imaging Last Impressions Chest X-Ray 12/14/16 0934 Signed Impressions: Service Date/Time: November 09:34 - CONCLUSION: 1. Mild cardiomegaly with possible mild edema pattern and basilar atelectasis. Sae Lin MD Lumbar Spine X-Ray 12/13/16 0000 Signed Impressions: Service Date/Time: Tuesday, December 13, 2016 08:59 - CONCLUSION: Lumbar level localization as above Ben Zaragoza MD Procedures Status post L2/3, L4/5 hemilaminectomy, foraminotomy, mesiofacetectomy, microsurgical disc resection. Other Results Laboratory Tests Test 12/14/16 12/14/16 12/14/16 12/16/16 09:30 12:15 13:43 06:00 Blood Gas Puncture Site RT RADIAL Blood Gas Patient Temperature 98.6 Blood Gas HCO3 21 mmol/L Blood Gas Base Excess -4.5 mmol/L Blood Gas Oxygen Saturation 86 % Arterial Blood pH 7.32 Arterial Blood Partial 41 mmHg Pressure CO2 Arterial Blood Partial 58 mmHg Pressure O2 Arterial Blood Oxygen Content 15.9 Vol % Arterial Blood 1.7 % Carboxyhemoglobin Arterial Blood Methemoglobin 1.4 % Blood Gas Hemoglobin 13.1 G/DL Oxygen Delivery Device VENTIMASK Blood Gas Inspired Oxygen 50 % Nasal Screen MRSA (PCR) MRSA NOT DETECTED White Blood Count 18.9 TH/MM3 Red Blood Count 4.19 MIL/MM3 Hemoglobin 12.9 GM/DL Hematocrit 39.0 % Mean Corpuscular Volume 93.2 FL Mean Corpuscular Hemoglobin 30.8 PG Mean Corpuscular Hemoglobin 33.0 % Concent Red Cell Distribution Width 14.3 % Platelet Count 211 TH/MM3 Mean Platelet Volume 9.0 FL Neutrophils (%) (Auto) 91.3 % Lymphocytes (%) (Auto) 3.6 % Monocytes (%) (Auto) 5.0 % Eosinophils (%) (Auto) 0.0 % Basophils (%) (Auto) 0.1 % Neutrophils # (Auto) 17.2 TH/MM3 Lymphocytes # (Auto) 0.7 TH/MM3 Monocytes # (Auto) 0.9 TH/MM3 Eosinophils # (Auto) 0.0 TH/MM3 Basophils # (Auto) 0.0 TH/MM3 CBC Comment DIFF FINAL Differential Comment Total Bilirubin 0.2 MG/DL Aspartate Amino Transf 28 U/L (AST/SGOT) Alanine Aminotransferase 23 U/L (ALT/SGPT) Alkaline Phosphatase 77 U/L Total Protein 6.6 GM/DL Albumin 3.0 GM/DL Sodium Level 141 MEQ/L Potassium Level 4.1 MEQ/L Chloride Level 106 MEQ/L Carbon Dioxide Level 29.7 MEQ/L Anion Gap 5 MEQ/L Blood Urea Nitrogen 18 MG/DL Creatinine 0.63 MG/DL Estimat Glomerular Filtration 95 ML/MIN Rate Random Glucose 105 MG/DL Calcium Level 8.8 MG/DL Magnesium Level 2.2 MG/DL Objective Remarks GENERAL: Obese, Mild respiratory distress. SKIN: No rashes, ecchymoses or lesions. Cool and dry. HEAD: Atraumatic. Normocephalic. No temporal or scalp tenderness. EYES: Pupils equal round and reactive. ENT: Nose without bleeding, purulent drainage or septal hematoma. NECK: Trachea midline. No JVD or lymphadenopathy. Supple, nontender, no meningeal signs. CARDIOVASCULAR: Regular rate and rhythm without murmurs, gallops, or rubs. RESPIRATORY: Decreased breath sounds bilateral, with mild expiratory wheezing, no crackles. GASTROINTESTINAL: Abdomen soft, non-tender, nondistended. MUSCULOSKELETAL: Extremities without clubbing, cyanosis, or edema. NEUROLOGICAL: Awake and alert. No focal deficits. Medications and IVs Current Medications Medications (Trade) Dose Ordered Sig/Zoran Route Start Time Stop Time Status Last Admin (NS Flush) 2 ml UNSCH PRN IVF 12/13/16 12:00 (NS Flush) 2 ml BID IVF 12/13/16 12:00 12/16/16 08:28 (Colace) 100 mg BID PO 12/13/16 13:00 12/16/16 08:26 (Milk Of Magnesia Liq) 30 ml DAILY PRN PO 12/13/16 12:00 (Protonix) 40 mg DAILY PO 12/13/16 13:00 12/16/16 08:26 (Zofran Inj) 4 mg Q6H PRN IV 12/13/16 12:00 ([place] 10-325 Mg) 1 tab Q4H PRN PO 12/13/16 12:00 ([place] 10-325 Mg) 2 tab Q4H PRN PO 12/13/16 12:00 12/16/16 08:30 (Morphine Inj) 2 mg Q2H PRN IV PUSH 12/13/16 12:00 (Morphine Inj) 4 mg Q2H PRN IV PUSH 12/13/16 12:00 (Catapres) 0.1 mg Q6H PRN PO/NG 12/13/16 12:00 (Tylenol) 650 mg Q4H PRN PO 12/13/16 12:00 ([place] Mariela) 1 lozenge UNSCH PRN BUCCAL 12/13/16 12:00 (Symbicort 160-4.5 Inh) 1 puff BID INH 12/13/16 21:00 12/16/16 08:28 (Vitamin B12) 2,000 mcg DAILY PO 12/14/16 09:00 12/16/16 08:26 (Neurontin) 300 mg BID PO 12/13/16 21:00 12/16/16 08:27 (Pravachol) 40 mg HS PO 12/13/16 21:00 (Norvasc) 5 mg DAILY PO 12/13/16 13:15 12/16/16 08:26 (Prinivil) 20 mg DAILY PO 12/14/16 09:00 12/16/16 08:26 (Toprol Xl) 50 mg BID PO 12/13/16 22:00 12/16/16 08:27 (Mucinex Er) 600 mg BID PO 12/14/16 12:00 12/15/16 09:12 (Lasix) 20 mg DAILY PO 12/15/16 09:00 12/16/16 08:27 (Deltasone) 40 mg DAILY PO 12/15/16 16:00 12/16/16 08:27 A/P Assessment and Plan 1. Respiratory failure multifactorial, patient on IV fluids probable moderate volume overload, seen left Pleural effusion edema on CXR, given already Diuretics as per Critical Care and following, for COPD exacerbation will continue respiratory therapy, Incentive spirometry, Mucolytics, Nebulized steroids and Steroids. continue on oxygen at the time of this evaluation patient status post Bronchodilator and on Oxygen 4 L/min. 2. Degenerative Disk disease, with Status post L2/3, L4/5 hemilaminectomy, foraminotomy, Mesiofacetectomy, microsurgical disc resection. 3. COPD with probable exacerbated, Improving slowly, will need to get six minutes walk and evaluate for the need for Home Oxygen. 4. TIA by history 5. Peripheral Artery disease by history 6. Bigeminy recent Echocardiogram with Normal EF as per certification and selection specialist. recommended to be performed Stress test as outpatient. by her Primary certification and selection specialist Doctor cristina Melton for discharge from Cardiology 7. Hypertension controlled. DVT prophylaxis SCDs Code Status Full code. Discussed Condition With Patient, Nurse Miss Isbell and [employer], all questions answered to the best of my abilities. Discharge Planning Expected later today or in am tomorrow after Six minutes walk and may need oxygen at home. Americo Foreman MD December 16, 2016 08:41
[2016-12-16] MEDS: RESP: BUDESONIDE 0.5 MG/2 ML NEB NEB SCH ×2 (08:51→19:50)
[2016-12-16] MEDS ORDERED: OXYGENTANK NAS.CANULA (14:43)
--- NOTE | 2016-12-16 20:21 | HHI.NSPN ---
History Chief Complaint: mild shortness of breath Interval History 66-year-old female status post lumbar laminectomy 12/13/16. History of COPD. Positive shortness of breath postoperative. Medicine service following. According to therapy notes and nursing staff she fails her 6 minute walking test today. She is thus going to go home on home oxygen. Exam Results Vital Signs Date Time Temp Pulse Resp B/P Pulse Ox O2 Delivery O2 Flow Rate FiO2 12/16/16 19:47 93 Nasal Cannula 3.00 12/16/16 18:09 94 12/16/16 15:05 97.3 18 130/74 12/15/16 08:00 50 Intake and Output 12/15/16 12/15/16 12/16/16 08:00 16:00 00:00 Intake Total 240 ml 240 ml 360 ml Output Total 675 ml 1400 ml 850 ml Balance -435 ml -1160 ml -490 ml Physical Examination Alert and oriented x 3. Speech is fluent. Motor: moves right leg 4/5 proximal, 5/5 distal, left leg 5/5. moves upper extremities well Lung: Respirations clear, slightly labored. She is getting a breathing treatment at the time of this examination. Ext: no edema or pain to palpation. Sitting up in chair. Appears comfortable. Lab, Micro, Other Results Laboratory Tests Test 12/16/16 06:00 Sodium Level 141 MEQ/L Potassium Level 4.1 MEQ/L Chloride Level 106 MEQ/L Carbon Dioxide Level 29.7 MEQ/L Anion Gap 5 MEQ/L Blood Urea Nitrogen 18 MG/DL Creatinine 0.63 MG/DL Estimat Glomerular Filtration 95 ML/MIN Rate Random Glucose 105 MG/DL Calcium Level 8.8 MG/DL Magnesium Level 2.2 MG/DL Medical Decision Making Impression and Plan Impression: Stable neurologic exam postoperative laminectomy. Persistent shortness of breath with ambulation. Plan: Findings were discussed with the patient. Her home oxygen has been delivered to her room at approximately 8 PM today. She will plan on going home in the morning with the home oxygen. Sensory symptoms to watch for were discussed. Rosas Soto MD December 16, 2016 20:21
[2016-12-16] MEDS: PRAVASTATIN SOD 40 MG TAB PO SCH (21:47)
[2016-12-17] MEDS: RESP: ALBUTEROL 2.5 MG/IPRATROPIUM 0.5 MG NEB (SCH) NEB ×3 (03:45→11:17)
[2016-12-17 04:36] VITALS: BP 129/82; PULSE 76; RESP 18; TEMP 96.6; O2SAT 92
[2016-12-17 06:02] LABS: BICARBONATE 33.7 MEQ/L (21.0-32.0); MAGNESIUM 2.1 MG/DL (1.5-2.5); POTASSIUM 3.6 MEQ/L (3.5-5.1)
[2016-12-17 07:24] VITALS: BP 188/93; PULSE 75; RESP 17; TEMP 95.6; O2SAT 93
[2016-12-17] MEDS: RESP: BUDESONIDE 0.5 MG/2 ML NEB NEB SCH (07:33)
[2016-12-17 07:36] VITALS: O2SAT 92
[2016-12-17] MEDS: CYANOCOBALAMIN 1,000 MCG TAB PO SCH (08:00)
[2016-12-17] MEDS: GABAPENTIN 300 MG CAP PO SCH (08:00)
[2016-12-17] MEDS: guaiFENesin E.R. 600 MG TAB PO SCH (08:00)
[2016-12-17] MEDS: predniSONE 20 MG TAB PO SCH (08:00)
[2016-12-17] MEDS: LISINOPRIL 20 MG TAB PO SCH (08:01)
[2016-12-17] MEDS: DOCUSATE SODIUM 100 MG CAP PO SCH (08:01)
[2016-12-17] MEDS: amLODIPine BESYLATE 5 MG TAB PO SCH (08:01)
[2016-12-17] MEDS: METOPROLOL SUCCINATE 50 MG EXTENDED RELEASE TAB PO SCH (08:01)
[2016-12-17] MEDS: FUROSEMIDE 20 MG TAB PO SCH (08:01)
[2016-12-17] MEDS: PANTOPRAZOLE SOD 40 MG DELAYED RELEASE TAB PO SCH (08:01)
[2016-12-17] MEDS: SODIUM CHLORIDE 0.9% FLUSH 5 ML FLUSH IVF SCH (08:02)
[2016-12-17] MEDS: BUDESONIDE-FORMOTEROL 160/4.5 MCG INHALER INH SCH (08:02)
--- NOTE | 2016-12-17 10:39 | HHI.PR ---
Subjective Remarks This is a pleasant 66 y/o Female who has COPD, Hypertension, OA, TIA, Peripheral Artery Disease Who came to this Facility on December 13, 2016 for Elective Surgery, status post L2- L3, L4-L5 Hemilaminectomy, Facetectomy, Foraminectomy, Microsurgical resection of disc, she is been seen by public finance specialist due to Bigeminy and then had sinus rhythm with Occasional PVCs, rhythm with PVCs occasionally, having some Shortness of breath, Dizziness, Lightheadedness, as per public finance specialist okay to discharge home, this morning, she developed Shortness of breath with Hypoxemia, Rapid response team and rfid specialist in to see patient and recommended diuretics and respiratory treatment. 12/15: Stable seen in her bedroom in the presence of nurse Miss Vasques, no new issues, on 4 L/min of Oxygen, Neurosurgery planning to Discharge once Oxygen titrated down. 12/16: Seen in her bedroom receiving respiratory therapy, may need to titrate Oxygen today and asked for six minutes walk to evaluate for the need for Oxygen at home. 12/17: Stable in her bedroom, no nausea, vomit or diarrhea, has Oxygen delivered to her home receiving two Liters of oxygen, Improving from her primary surgery. removed Cárdenas Cath Objective Vital Signs Date Time Temp Pulse Resp B/P Pulse Ox O2 Delivery O2 Flow Rate FiO2 12/17/16 07:36 92 Nasal Cannula 3.00 12/17/16 07:24 95.6 75 17 188/93 93 12/17/16 04:36 96.6 76 18 129/82 92 12/16/16 23:05 96.7 65 18 130/75 93 12/16/16 19:53 97.8 90 18 141/84 92 12/16/16 19:47 93 Nasal Cannula 3.00 12/16/16 18:09 94 12/16/16 16:48 86 12/16/16 15:40 75 12/16/16 15:05 97.3 80 18 130/74 92 12/16/16 13:30 93 Nasal Cannula 3.00 12/16/16 12:51 77 12/16/16 12:05 96.2 74 18 134/82 95 12/16/16 11:01 62 I/O 12/16/16 12/16/16 12/16/16 12/17/16 12/17/1617 06:59 14:59 22:59 06:59 14:59 22:59 Intake Total 360 ml 960 ml 360 ml 480 ml Output Total 1150 ml 2050 ml 420 ml 750 ml Balance -790 ml -1090 ml -60 ml -270 ml Intake Oral 360 ml 960 ml 360 ml 480 ml Output Urine Total 1150 ml 2050 ml 420 ml 750 ml # Voids 0 # Bowel Movements 0 0 0 0 Result Diagram: 12/14/16 1343 12/17/16 0531 Imaging Last Impressions Chest X-Ray 12/14/16 0934 Signed Impressions: Service Date/Time: November 09:34 - CONCLUSION: 1. Mild cardiomegaly with possible mild edema pattern and basilar atelectasis. Sae Lin MD Lumbar Spine X-Ray 12/13/16 0000 Signed Impressions: Service Date/Time: Tuesday, December 13, 2016 08:59 - CONCLUSION: Lumbar level localization as above Ben Zaragoza MD Procedures Status post L2/3, L4/5 hemilaminectomy, foraminotomy, mesiofacetectomy, microsurgical disc resection. Other Results Laboratory Tests Test 12/14/16 12/14/16 12/14/16 12/17/16 09:30 12:15 13:43 05:31 Blood Gas Puncture Site RT RADIAL Blood Gas Patient Temperature 98.6 Blood Gas HCO3 21 mmol/L Blood Gas Base Excess -4.5 mmol/L Blood Gas Oxygen Saturation 86 % Arterial Blood pH 7.32 Arterial Blood Partial 41 mmHg Pressure CO2 Arterial Blood Partial 58 mmHg Pressure O2 Arterial Blood Oxygen Content 15.9 Vol % Arterial Blood 1.7 % Carboxyhemoglobin Arterial Blood Methemoglobin 1.4 % Blood Gas Hemoglobin 13.1 G/DL Oxygen Delivery Device VENTIMASK Blood Gas Inspired Oxygen 50 % Nasal Screen MRSA (PCR) MRSA NOT DETECTED White Blood Count 18.9 TH/MM3 Red Blood Count 4.19 MIL/MM3 Hemoglobin 12.9 GM/DL Hematocrit 39.0 % Mean Corpuscular Volume 93.2 FL Mean Corpuscular Hemoglobin 30.8 PG Mean Corpuscular Hemoglobin 33.0 % Concent Red Cell Distribution Width 14.3 % Platelet Count 211 TH/MM3 Mean Platelet Volume 9.0 FL Neutrophils (%) (Auto) 91.3 % Lymphocytes (%) (Auto) 3.6 % Monocytes (%) (Auto) 5.0 % Eosinophils (%) (Auto) 0.0 % Basophils (%) (Auto) 0.1 % Neutrophils # (Auto) 17.2 TH/MM3 Lymphocytes # (Auto) 0.7 TH/MM3 Monocytes # (Auto) 0.9 TH/MM3 Eosinophils # (Auto) 0.0 TH/MM3 Basophils # (Auto) 0.0 TH/MM3 CBC Comment DIFF FINAL Differential Comment Total Bilirubin 0.2 MG/DL Aspartate Amino Transf 28 U/L (AST/SGOT) Alanine Aminotransferase 23 U/L (ALT/SGPT) Alkaline Phosphatase 77 U/L Total Protein 6.6 GM/DL Albumin 3.0 GM/DL Sodium Level 146 MEQ/L Potassium Level 3.6 MEQ/L Chloride Level 103 MEQ/L Carbon Dioxide Level 33.7 MEQ/L Anion Gap 9 MEQ/L Blood Urea Nitrogen 17 MG/DL Creatinine 0.69 MG/DL Estimat Glomerular Filtration 85 ML/MIN Rate Random Glucose 94 MG/DL Calcium Level 8.8 MG/DL Magnesium Level 2.1 MG/DL Objective Remarks GENERAL: Obese, Mild respiratory distress. SKIN: No rashes, ecchymoses or lesions. Cool and dry. HEAD: Atraumatic. Normocephalic. No temporal or scalp tenderness. EYES: Pupils equal round and reactive. ENT: Nose without bleeding, purulent drainage or septal hematoma. NECK: Trachea midline. No JVD or lymphadenopathy. Supple, nontender, no meningeal signs. CARDIOVASCULAR: Regular rate and rhythm without murmurs, gallops, or rubs. RESPIRATORY: Decreased breath sounds bilateral, with mild expiratory wheezing, no crackles. GASTROINTESTINAL: Abdomen soft, non-tender, nondistended. MUSCULOSKELETAL: Extremities without clubbing, cyanosis, or edema. NEUROLOGICAL: Awake and alert. No focal deficits. Medications and IVs Current Medications Medications (Trade) Dose Ordered Sig/Zoran Route Start Time Stop Time Status Last Admin (NS Flush) 2 ml UNSCH PRN IVF 12/13/16 12:00 (NS Flush) 2 ml BID IVF 12/13/16 12:00 12/17/16 08:02 (Colace) 100 mg BID PO 12/13/16 13:00 12/16/16 21:47 (Milk Of Magnesia Liq) 30 ml DAILY PRN PO 12/13/16 12:00 (Protonix) 40 mg DAILY PO 12/13/16 13:00 12/17/16 08:01 (Zofran Inj) 4 mg Q6H PRN IV 12/13/16 12:00 ([place] 10-325 Mg) 1 tab Q4H PRN PO 12/13/16 12:00 ([place] 10-325 Mg) 2 tab Q4H PRN PO 12/13/16 12:00 12/16/16 18:25 (Morphine Inj) 2 mg Q2H PRN IV PUSH 12/13/16 12:00 (Morphine Inj) 4 mg Q2H PRN IV PUSH 12/13/16 12:00 (Catapres) 0.1 mg Q6H PRN PO/NG 12/13/16 12:00 (Tylenol) 650 mg Q4H PRN PO 12/13/16 12:00 ([place] Mariela) 1 lozenge UNSCH PRN BUCCAL 12/13/16 12:00 (Symbicort 160-4.5 Inh) 1 puff BID INH 12/13/16 21:00 12/17/16 08:02 (Vitamin B12) 2,000 mcg DAILY PO 12/14/16 09:00 12/17/16 08:00 (Neurontin) 300 mg BID PO 12/13/16 21:00 12/17/16 08:00 (Pravachol) 40 mg HS PO 12/13/16 21:00 (Norvasc) 5 mg DAILY PO 12/13/16 13:15 12/17/16 08:01 (Prinivil) 20 mg DAILY PO 12/14/16 09:00 12/17/16 08:01 (Toprol Xl) 50 mg BID PO 12/13/16 22:00 12/17/16 08:01 (Mucinex Er) 600 mg BID PO 12/14/16 12:00 12/15/16 09:12 (Lasix) 20 mg DAILY PO 12/15/16 09:00 12/17/16 08:01 (Deltasone) 40 mg DAILY PO 12/15/16 16:00 12/17/16 08:00 A/P Assessment and Plan 1. Respiratory failure multifactorial, patient on IV fluids probable moderate volume overload, seen left Pleural effusion edema on CXR, given already Diuretics as per Critical Care and following, for COPD exacerbation will continue respiratory therapy, Incentive spirometry, Mucolytics, Nebulized steroids and Steroids. improving will continue Prednisone titrated dosages at home. 2. Degenerative Disk disease, with Status post L2/3, L4/5 hemilaminectomy, foraminotomy, Mesiofacetectomy, microsurgical disc resection. okay from neurosurgery to discharge Home. 3. COPD with probable exacerbated, Improving slowly, continue Nasal Cannula at 2 L/min. will be discharged on Oxygen and also Steroids low dose. 4. TIA by history 5. Peripheral Artery disease by history 6. Bigeminy recent Echocardiogram with Normal EF as per public finance specialist. recommended to be performed Stress test as outpatient. by her Primary public finance specialist Doctor cristina Melton for discharge from Cardiology 7. Hypertension Mild uncontrol in one measurement but she is been well controlled on her actual dosages will follow with PCP DVT prophylaxis SCDs Code Status Full code. Discussed Condition With Patient, Nurse Miss Pace, all questions answered to the best of my abilities. Discharge Planning Hospitalist clear for discharge. Americo Foreman MD December 17, 2016 10:39
[2016-12-17] MEDS ORDERED: PRED10 PO (10:44)
[2016-12-17 11:30] VITALS: BP 141/72; PULSE 85; RESP 17; TEMP 96.1; O2SAT 95
--- NOTE | 2016-12-17 14:24 | HHI.DCPOC ---
Discharge Care Plan Diagnosis: (1) Hypoxemia (2) Congestive heart failure (CHF) (3) COPD exacerbation Your Health Problems Are: Difficulty with ADL Incision/Drains Exercise Tolerance Chronic Pain Shortness of Breath Goals to Promote Your Health * To prevent worsening of your condition and complications * To maintain your health at the optimal level Directions to Meet Your Goals Take your medications as prescribed Follow your dietary instruction Follow activity as directed Keep your appointments as scheduled Take your immunizations and boosters as scheduled If your symptoms worsen call your PCP, if no PCP go to Urgent Care Center or Emergency Room Smoking is Dangerous to Your Health. Avoid second hand smoke Call the 24-hour hour crisis hotline for domestic abuse at Rosas Soto MD December 17, 2016 14:24
--- NOTE | 2016-12-17 14:28 | PD.CARD.PN ---
Subjective Subjective Remarks Denies palpitations, dizziness, near syncope, CP, dyspnea. Objective Medications Item Value Date Time Furosemide 20 mg 12/15/16 0900 (Lasix) DAILY/PO 12/17/16 0801 Lisinopril 20 mg 12/14/16 0900 (Prinivil) DAILY/PO 12/17/16 0801 Metoprolol 50 mg 12/13/16 2200 Succinate BID/PO 12/17/16 08 (Toprol Xl) Pravastatin Sodium 40 mg 12/13/16 2100 (Pravachol) HS/PO Amlodipine 5 mg 12/13/16 1315 Besylate DAILY/PO 12/17/16 08 (Norvasc) Clonidine 0.1 mg 12/13/16 1200 (Catapres) Q6H PRN/PO/NG Vital Signs / I&O Vital Signs Date Time Temp Pulse Resp B/P Pulse Ox O2 Delivery O2 Flow Rate FiO2 12/17/16 08:30 Nasal Cannula 3.00 12/17/16 07:36 92 Nasal Cannula 3.00 12/17/16 07:24 95.6 75 17 188/93 93 12/17/16 04:36 96.6 76 18 129/82 92 12/16/16 23:05 96.7 65 18 130/75 93 12/16/16 19:53 97.8 90 18 141/84 92 12/16/16 19:47 93 Nasal Cannula 3.00 12/16/16 18:09 94 12/16/16 16:48 86 12/16/16 15:40 75 12/16/16 15:05 97.3 80 18 130/74 92 I/O 12/16/16 12/16/16 12/16/16 12/17/16 12/17/16 12/17/16 07:00 15:00 23:00 07:00 15:00 23:00 Intake Total 360 ml 960 ml 360 ml 480 ml Output Total 1150 ml 2050 ml 420 ml 750 ml Balance -790 ml -1090 ml -60 ml -270 ml Intake Oral 360 ml 960 ml 360 ml 480 ml Output Urine Total 1150 ml 2050 ml 420 ml 750 ml # Voids 0 # Bowel Movements 0 0 0 0 Physical Exam GENERAL: Well developed, well nourished. No acute distress. HEENT: Jugular venous pressure is normal. CHEST: Lungs clear to auscultation bilaterally. Unlabored respiratory effort. CARDIAC: Regular rate and rhythm without S3, S4, or murmur. ABDOMEN: Soft, nontender, no hepatosplenomegaly. Bowel sounds present. EXTREMITIES: No clubbing, cyanosis, or edema. Laboratory Laboratory Tests Test 12/17/16 05:31 Sodium Level 146 MEQ/L Potassium Level 3.6 MEQ/L Chloride Level 103 MEQ/L Carbon Dioxide Level 33.7 MEQ/L Anion Gap 9 MEQ/L Blood Urea Nitrogen 17 MG/DL Creatinine 0.69 MG/DL Estimat Glomerular Filtration 85 ML/MIN Rate Random Glucose 94 MG/DL Calcium Level 8.8 MG/DL Magnesium Level 2.1 MG/DL Assessment and Plan Problem List: (1) Congestive heart failure (CHF) Assessment and Plan: Stable. Compensated. CHF appears resolved clinically and by exam. Echo shows low normal left ventricular function, EF ~50%. No evidence overall for acute coronary syndrome. REC OK to discharge home from cardiac standpoint, f/u with Dr. Willy Foster in 3-4 weeks continue metoprolol, LOBITO-I rec daily oral Lasix 20 mg (2) PVC (premature ventricular contraction) Assessment and Plan: Patient asymptomatic. Rhythm strips reviewed from past 24 hours. Few triplets, no sustained VT. Rec increase metoprolol to 75 mg bid. (3) Hypertension Assessment and Plan: Fluctuating BP's. Rec outpatient monitoring, medication adjustment. To increase metoprolol dosing as above. Code Status full code Discussed Condition With patient Problem Qualifiers (1) Congestive heart failure (CHF): Qualified Code: I50.21 - Acute systolic congestive heart failure (2) Hypertension: Qualified Code: I10 - Essential hypertension Adrian Encarnacion MD December 17, 2016 14:28
[2016-12-17] MEDS ORDERED: PILL SPLITTER OTHER PRN (14:30)
[2016-12-17] MEDS ORDERED: METOPROLOL SUCCINATE 50 MG EXTENDED RELEASE TAB PO SCH (21:00)
[2017-01-05] MEDS ORDERED: LEVO500T8 PO (10:53)
[2017-01-08] MEDS ORDERED: LEVO500T8 PO (14:03)
[2017-01-12] MEDS ORDERED: LEVO500T8 PO (12:02)
[2017-01-12] MEDS ORDERED: BACT800T5 PO (12:02)
[2017-01-12] MEDS ORDERED: FLUC150T PO (12:03)
--- NOTE | 2017-01-24 12:44 | HHI.DS ---
Discharge Summary Admission Date December 13, 2016 at 11:55 Discharge Date: December 17, 2016 Admitting Diagnosis lumbar spinal stenosis (1) Lumbar spinal stenosis Diagnosis: Principal ICD Code: M48.06 Procedures Date of Surgery: December 14, 2016 Procedure (Dr De La Cruz): Right L2-L3 hemilaminectomy, mesial facetectomy, foraminotomy with microsurgical resection of the disc, right L4 5 hemilaminectomy, mesial facetectomy, foraminotomy with microsurgical resection of the disc Hospital Course 12/13: Ms. Rodrigez is a 66 year old female who underwent a lumbar decompressive laminectomy and microdiscectomy. Post-op she developed arrhythmias and Cardiology consulted. 12/14: c/o of shortness of breath, denies chest pain. respiratory paged for breathing tx. 12/15: breathing better but still requires oxygen supplementation, 90% O2 sats. 12/16: History of COPD. Positive shortness of breath postoperative. Medicine service following. According to therapy notes and nursing staff she fails her 6 minute walking test today. She is thus going to go home on home oxygen. 12/17: Stable in her bedroom (sic), no nausea, vomit or diarrhea, has Oxygen delivered to her home receiving two Liters of oxygen, Improving from her primary surgery. removed Cárdenas Cath Pt Condition on Discharge: Good Discharge Disposition: Discharge Home Discharge Instructions DIET: Follow Instructions for: As Tolerated, No Restrictions ACTIVITIES You can perform: Weight Bearing As Sukhjinder Activities to Avoid: Lifting/Bending, Strenuous Activity Da Mace Jan 24, 2017 12:44
== END 2016-12-17 14:45 | disposition home or self-care (01) ==
LOC: HSDC 06:19 → HSDI 11:55 → N06A 17:20 → N03B 12-14 12:13 → N06A 12-15 18:34
PROVIDERS: ADMIT Neurological Surgery; ATTEND Neurological Surgery
DX: M51.16 Intervertebral disc disorders with radiculopathy, lumbar region (principal); M48.06 Spinal stenosis, lumbar region; I11.0 Hypertensive heart disease with heart failure; I50.9 Heart failure, unspecified; J44.9 Chronic obstructive pulmonary disease, unspecified; M19.90 Unspecified osteoarthritis, unspecified site; I49.3 Ventricular premature depolarization; I73.9 Peripheral vascular disease, unspecified; Z96.652 Presence of left artificial knee joint; F17.200 Nicotine dependence, unspecified, uncomplicated; Z86.73 Personal history of transient ischemic attack (TIA), and cerebral infarction without residual deficits; Z88.1 Allergy status to other antibiotic agents; Z79.51 Long term (current) use of inhaled steroids; Z79.02 Long term (current) use of antithrombotics/antiplatelets; J96.90 Respiratory failure, unspecified, unspecified whether with hypoxia or hypercapnia; Z95.820 Peripheral vascular angioplasty status with implants and grafts
CPT/HCPCS: 00630; 36600; 63030; 63035; 71010; 72020; 76000; 80048; 80053; 82805; 83735; 85025; 87641; 93005; 93306; 94620; 94640; 94664; 94762; 97162; G0378; G8987; G8988; J0131; J0690; J1030; J1580; J1940; J2250; J2270; J2405; J2710; J2920; J3010; J3370; J3475; J7030; J7050; J7120; J7512; J7613; J7626; L0627; 99285

== ENCOUNTER 2018-03-05 06:22 | Inpatient (IN) ==
[2018-03-05] MEDS ORDERED: Metoprolol Tartrate 25 MG Tablet PO SCH (07:15)
[2018-03-05] MEDS ORDERED: Chlorhexidine Gluconate 2% 1 Pack (2 Cloths) TOPICAL SCH (07:15)
[2018-03-05] MEDS ORDERED: Propofol Inj 500 MG/50 ML Vial ONE (07:54)
[2018-03-05] MEDS ORDERED: CEFAZOLIN IV.SIG ONE (07:54)
[2018-03-05] MEDS ORDERED: fentaNYL Citrate Inj 250 MCG/5 ML Ampul ONE (07:54)
[2018-03-05] MEDS ORDERED: Sodium Chlor 0.9% Inj 500 ML IV.SIG SCH (08:00)
[2018-03-05] MEDS ORDERED: Gelatin Size 100 Topical Foam ONE (08:09)
[2018-03-05] MEDS ORDERED: Thrombin Topical Soln 5,000 UNIT Vial TOPICAL ONE (08:09)
[2018-03-05] MEDS ORDERED: Bupivacaine/Epinephrine 0.5% Inj 50 ML Vial ONE (08:09)
[2018-03-05] MEDS ORDERED: Heparin - SQ 10,000 UNITS/ML Vial ONE (08:16)
[2018-03-05] MEDS ORDERED: Heparin 10,000 UNITS/10 ML Vial (for IV use) ONE (08:16)
[2018-03-05] MEDS ORDERED: ceFAZolin 2 GM Premix Inj 2 GM/100 ML BAG IV.SIG ONE (08:34)
[2018-03-05] MEDS ORDERED: ceFAZolin 2 GM IV; once IV.SIG PRN (08:54)
[2018-03-05] MEDS ORDERED: Naloxone Inj 0.4 MG/ML Vial IV.PUSH PRN (09:37)
[2018-03-05] MEDS ORDERED: Bisacodyl 10 MG Supp RECTAL PRN (09:37)
[2018-03-05] MEDS ORDERED: Lidocaine PF 1% Inj 5 ML Syringe INFILTRATN ONE (12:00)
[2018-03-05] MEDS ORDERED: Phenylephrine/NS 1000 MCG/10ML Syringe IV.PUSH ONE (12:00)
[2018-03-05] MEDS: HYDROmorphone PCA Inj 6 MG/30 ML PCA.VIAL PCA PRN (15:00)
--- NOTE | 2018-03-05 15:19 | P.CONCC ---
History of Present Illness Service: Critical Care Consult date: 03/05/18 Requesting Physician: Frank De La Cruz Reason for Consult: Post op redo-laminectomy, [employer]ER Primary Care Provider: Juju Poole MD Family Provider: Juju oPole MD Chief Complaint: s/p Re do Lumbar laminectomy History of Present Illness: Patient is a 67-year-old female with history of COPD, continued tobacco abuse, coronary artery disease, peripheral arterial disease, CHF with preserved ejection fraction, and hypertension. Patient was electively admitted to Dr. De La Cruz service today for L3-4, L4-5 redo decompressive laminectomy, interbody arthrodesis, L3-4, L4-5 posterolateral fusion. EBL 200-250cc. Postop patient was extubated and moved to the PACU. I evaluated the patient in the PACU. She appears to be in moderate distress due to pain. According to the PLC CONTROLS ENGINEER patient had wheezing on arrival from the OR, improved with DuoNeb breathing treatments. Patient has undergone a previous lumbar laminectomy in [address] De La Cruz, unfortunately her lumbar pain recurred with the radiation to the legs. MRI of the lumbar spine showed L4-5 spondylolisthesis. As the patient did not improve with physical therapy and pain management, she was recommended to undergo redo laminectomy. [facility] - History History Provided By: Patient - Medical History Medical History: Medical History (Last Reviewed 03/05/18 @ 07:37 by Tova Hamm) Asthma Back pain CHF (congestive heart failure) COPD (chronic obstructive pulmonary disease) Colitis DDD (degenerative disc disease) Dry eyes Femoral artery stenosis Fibromyalgia Full dentures GERD (gastroesophageal reflux disease) Herniated disc High cholesterol History of anesthesia reaction History of hysterectomy Hypertension Hypervolemia Joint pain Osteoarthritis Osteoporosis Skin cancer Spinal stenosis Ventricular bigeminy - Surgical History Surgical History: Surgical History (Last Updated 03/05/18 @ 07:37 by Tova Hamm) S/P peripheral artery angioplasty with stent placement H/O arthroscopy of right knee History of bilateral breast reduction surgery History of cataract extraction with lens replacement History of laminectomy History of left knee replacement - Tobacco History Second Hand Smoke Exposure: No Tobacco Use In Past 30 Days: Yes Smoking Status: Current every day smoker Tobacco Type: Cigarettes - Alcohol History How Often Do You Have a Drink Containing Alcohol: Never - Substance Use History Substance History: No History of Abuse Medications and Allergies Active Medications: Active Medications Hydrocodone Bitart/Acetaminophen ([place] 10/325) 2 tab PO Q4H PRN PRN Reason: PAIN SCALE 6 TO 10 Al Hydroxide/Mg Hydroxide (Milk Of Magnesia Liq) 30 ml PO Q12H PRN PRN Reason: Mild Constipation Bisacodyl (Dulcolax Supp) 10 mg RECTAL DAILY PRN PRN Reason: SEVERE CONSITIPATION Chlorhexidine Gluconate (Chlorhexidine 2% Cloth) 3 pack TOPICAL PAINT PREPARER [facility] Stop: 03/08/18 07:12 Last Admin: 03/05/18 07:15 Dose: 3 pack Lactated Ringer's (Lr 1000 Ml Inj) 1,000 mls @ 30 mls/hr IV.SIG .Q24H [facility] Stop: 03/08/18 07:12 Last Admin: 03/05/18 07:30 Dose: 30 mls/hr Sodium Chloride (Ns Inj) 500 mls @ 30 mls/hr IV.SIG .Q10H [facility] Stop: 03/08/18 07:12 Cefazolin Sodium/Dextrose (Ancef 2 Gm Premix Inj) 2 gm in 50 mls @ 100 mls/hr IV.SIG Q8H [facility] Stop: 03/06/18 02:29 Hydromorphone/Sodium Chloride (Dilaudid Fraud Investigator Inj) 6 mg in 30 mls @ 0 mls/hr CANE SPLICER UNSCH PRN PRN Reason: per CANE SPLICER parameters Potassium Chloride/Sodium Chloride (Ns + Kcl 20 Meq Inj) 1,000 mls @ 100 mls/ hr IV.CONT .Q10H [facility] Lactulose (Lactulose Liq) 30 ml PO DAILY PRN PRN Reason: SEVERE CONSITIPATION Metoprolol Tartrate (Lopressor) 25 mg PO PAINT PREPARER [facility] Stop: 03/08/18 07:12 Last Admin: 03/05/18 08:02 Dose: Not Given Naloxone HCl (Narcan Inj) 0.4 mg IV.PUSH PRN PRN PRN Reason: SEE LABEL COMMENTS Povidone Iodine (Betadine 5% Antisepsis Kit) 1 applicatio EACH NARE PAINT PREPARER [facility] Stop: 03/08/18 07:12 Last Admin: 03/05/18 07:35 Dose: 1 applicatio Senna/Docusate Sodium ([place]-Colace) 1 tab PO BID BRAN Sennosides (Senokot) 17.2 mg PO Q12H PRN PRN Reason: Moderate Constipation Allergies Allergy/AdvReac Type Severity Reaction Status Date / Time amoxicillin Allergy Severe Rash Verified 03/05/18 07:14 ciprofloxacin Allergy Severe Rash Verified 03/05/18 07:15 clavulanic acid Allergy Severe Rash Verified 03/05/18 07:15 adhesive tape Allergy Rash Verified 03/05/18 07:15 ibuprofen Allergy Rash Verified 03/05/18 07:14 Home Medications Medication Instructions Recorded Confirmed Type Lactobac no.30-Bifidobact no.4 1 cap PO DAILY 02/26/18 03/05/18 History [Ultimate Venita Probiotic] Lactobacillus rhamnosus GG 1 cap PO DAILY 02/26/18 03/05/18 History [Culturelle] albuterol sulfate [Ventolin HFA] 1 puff INHALATION Q4-6H PRN 02/26/18 03/05/18 History alendronate 70 mg PO QWEEK 02/26/18 03/05/18 History amlodipine-atorvastatin 1 tab PO DAILY 02/26/18 03/05/18 History atorvastatin 80 mg PO DAILY 02/26/18 03/05/18 History bismuth subsalicylate 2 tab PO DAILY 02/26/18 03/05/18 History [Pepto-Bismol] budesonide-formoterol [Symbicort] 2 puff INHALATION BID 02/26/18 03/05/18 History cholecalciferol (vitamin D3) 2,000 unit PO TID 02/26/18 03/05/18 History [Vitamin D3] cilostazol 100 mg PO DAILY 02/26/18 02/26/18 History clopidogrel 75 mg PO DAILY 02/26/18 03/05/18 History cyanocobalamin (vitamin B-12) 1,000 mcg PO WEEKLY 02/26/18 03/05/18 History [Vitamin B-12] cyclobenzaprine 10 mg PO PRN PRN 02/26/18 03/05/18 History gabapentin 300 mg PO TID 02/26/18 03/05/18 History hydrocodone-acetaminophen 1 tab PO Q6H PRN 02/26/18 03/05/18 History hydroxyzine HCl 25 mg PO TID 02/26/18 03/05/18 History metoprolol succinate 50 mg PO BID 02/26/18 03/05/18 History pantoprazole 40 mg PO DAILY 02/26/18 03/05/18 History tramadol 50 mg PO Q6H PRN 02/26/18 03/05/18 History vitamins A,C,V-kjps-vxochj 2 tab PO BID 02/26/18 03/05/18 History [PreserVision AREDS] Physical Exam Vital signs: Vital Signs 03/05/18 07:41 Temperature 98.6 F Pulse Rate 76 Respiratory Rate 18 Blood Pressure 127/82 Pulse Oximetry 90 L Intake & Output 03/04/18 03/05/18 03/05/18 18:59 06:59 18:59 Intake Total 1700 / 1700 Output Total 650 / 650 Balance 1050 / 1050 Weight 93.6 kg Intake: IV 100 / 100 Ancef 2 GM Premix Inj 2 gm In 100 / 100 100 ml @ 0 mls/hr IV.SIG .STK- [facility] Rx#:[id number] Anesthesia Amount 1600 / 1600 Output: Estimated Blood Loss 300 / 300 Urine Amount (Catheter) 350 / 350 Indwelling Urethral Catheter 350 / 350 Other: Weight On Admission 93.6 kg Narrative: General: 67 yo obese female who is lying in bed moderate distress due to pain HEENT: Normocephalic, atraumatic. Airway patent Eyes: Pupils equal round. Extra-ocular movement intact. Nonicteric sclera. Neck: soft, supple Lungs: Air entry equal but diminished bilaterally no wheezes CVS: S1, S2 normal no murmurs Skin: warm and dry, no cyanosis. Neuro: Patient is alert awake but still under the influence of anesthesia. She is able to move extremities and no obvious focal deficits. Single CLARIBEL drain in place posteriorly - Urinary Catheter Management Indwelling Urethral Catheter Cath placed during this visit: yes Reason for continuing: Hourly intake/output Insertion date: 03/05/18 Insertion time: 09:30 Septic Shock Reassessment Septic shock perfusion: reassessment completed Assessment and Plan - Assessment and Plan Plan: ASSESSMENT: Status post redo lumbar laminectomy Chronic hypoxemic respiratory failure COPD History of CHF Coronary artery disease Peripheral arterial disease Tobacco abuse Hypertension PLAN: NEURO: -Minimize sedation -Pain controlled with as needed [place] and Dilaudid -Hold home pain medications, continue gabapentin RESP: -DuoNeb every 6 hours scheduled and as needed -Continue home Symbicort, IV steroids if needed -Check chest x-ray -Aggressive pulmonary toilet, E CPAP every 6 hours with breathing treatments -Continue amlodipine and statin. Continue metoprolol -Hold cilostazol and Plavix until cleared by Dr. De La Cruz CV: -Normal saline IV fluids at 100 ml per hour -Previous Echo showed EF 50% per Dr. Encarnacion note GI: -Diet when permitted by neurosurgery -PPI, bowel regimen : -Monitor renal function closely. ID: -Perioperative cefazolin given by Dr. De La Cruz -Monitor for signs of infection HEME: -Monitor CBC, coags ENDO: -Electrolyte replacement per protocol PROPH: -Bilateral lower extremity SCDs. PPI. Chemical DVT prophylaxis is contraindicated until cleared by neurosurgery LINES: -Utilize peripheral IVs, central line if needed Level 3 new consult Code Status: Full Discussed Condition With: Bedside RN
--- NOTE | 2018-03-05 15:25 | XR ---
EXAM DATE: 03/05/2018 3:13 PM EDT AGE/SEX: 67 years / Female INDICATIONS: Fusion L3,L4 and L4,L5 with screws and rods placement. CLINICAL DATA: This is the patient's initial encounter. Patient reports that signs and symptoms have been present for 1 day and indicates a pain score of Nonresponsive. MEDICAL/SURGICAL HISTORY: None. None. COMPARISON: POI, MR LUMBAR SPINE W/O CONTRAST, 08/01/2017. . FINDINGS: Intraoperative images of the mid and lower lumbar spine show bilateral transpedicular fixation at 3 l evels presumably from L3 through L5 with intervertebral disc prostheses. Minimal grade 1 anterolisthe sis of L3 on 4 and L4 on 5. CLARIBEL type drain projects to the left of midline. CONCLUSION: 1. Bilateral transpedicular fixation from L3 through L5 with intervertebral disc prostheses. 2. Minimal grade 1 anterolisthesis of L3 on 4 and L4 on 5. Electronically signed by: Geoffrey Woods MD 03/05/2018 3:24 PM EDT
--- NOTE | 2018-03-05 15:34 | P.OP ---
Date of procedure: 03/05/18 Procedure: L3-4, L4-5 redo decompressive laminectomy, interbody arthrodhesis using PEEK cage and autologous bone graft, L3-4, L4-5 instrumental fixation using transpedicular screws and rods, L3-4, L4-5 posterolateral fusion using autologous bone graft and rods. Microsurgical dissection Anesthesia: RENETTA Surgeon: Frank De La Cruz MD Asphalt Distributor Operator: Kirsten Benjamin Pathology: none sent Operation and Findings: INDICATIONS FOR THE SURGICAL PROCEDURE Ms Cardona is a 67 year-old male who presented with intractable mechanical back pain and yosi evidence of right L4 and L5 lower extremity radiculopathy. He had severe spondylosis with facet arthropathy with spondylolisthesis at L4-5 and at L3-L4, where he had prior surgery. He failed maximum nonsurgical management including multiple modalities of conservative treatment as well as pain management interventions by an interventional pain specialist. A surgical decompression and arthrodhesis were indicated as a last resort. The [id number] details of the procedure, indications, alternatives, risks and potential complications were fully discussed with the patient. The patient fully understood. All the questions were answered. No guarantees were given. The patient voiced requesting the procedure and provided informed consents. The patient was offered the alternative of delaying the procedure and continuing with nonsurgical management. DETAILS OF THE SURGICAL PROCEDURE Prior to the procedure, the surgical incision was marked in the preoperative surgical holding room, and the procedure, risks, and potential complications revisited with the patient. Placement of electrodes for intraoperative neurophysiological monitoring was completed. The patient was taken to the operative room, and following induction of general anesthesia, endotracheal intubation was performed. A Cárdenas catheter, bilateral TIFF hose and sequential compression devices were placed and kept throughout the procedure. The patient was positioned prone, over a Deshawn table over a Stephen frame. All pressure in the preoperative surgical holding room points were carefully padded with eggcrate and gel mattress. The eyes were tapped shut after ointment was applied by the anesthesiologist to prevent corneal abrasion. A Samuel hugger was placed over the expossed lower body to maintain control of the core body temperature. The electrophysiological team placed the needles and electrodes in their proper location and baseline SSEP's and motor evoked potentials were registered prior and following the positioning. The entrance to each pedicles was marked using a C arm. The lumbar region was prepped and draped in the usual sterile fashion. The surgical procedure was performed in several steps as follow: SURGICAL APPROACH Once the patient was positioned, a localizing cross-table lateral x-ray was performed with a C-arm. Two paramedian small incisions were outlined on the skin approximately 3cm from the midline. The skin incisions were made with a # 10 blade. Small bleeders were controlled with the cautery. The dissection was then carried out into deper planes and through the thoracolumbar fascia with a Bovie. The intermuscular septum was identified and the myscles were blunted dissected along the septum. The facets and transverse process of L3, L4, L5 were exposed and the proper anatomical landmarks were identified. A microsurgical self-retaining retractor was placed on the incision, and a localizing lateralizing cross-table x-ray was performed with an instrument underneath a lamina of the lumbar spine. There was a bilateral pars defect with gross instability of the bony structures. INSTRUMENTAL FIXATION At this point in the procedure, placement of bilateral transpedicular screws was necessary for stabilization of the spine. Initially, the entry point for the screw was selected anatomically at the junction of the facet, with the transverse process, and the pars interarticularis at L5 and at the sacrum. This was started with a Giamshetti needle, followed by the use of an pandey wire, and then a tap was used to create the threads for the screws. Finally bilateral transpedicular screws were carefully placed bilaterally at L3, L4, L5 under fluoroscopic visualization. An appropriate purchase was achieved with all screws. The position of each screw was assessed anatomically with an AP, lateral , oblique Xrays. An intraoperative scan view of the spine was then performed using the iso-centric c-arm. Each screw was then assessed electrophysiologically with a nerve stimulator. SURGICAL DECOMPRESSION There was significant mass effect with compression of the neural structures. In order to relieve neural compression, it was necessary to perform a decompressive laminectomy, with decompression of the spinal canal and bilateral lateral recesses. Note that the scope of such decompression was significantly more extensive than the minimal exposure necessary to perform an interbody fusion, as there was extreme facet arthropathy with near complete collapse of the disk spaces and severe stenosis cause by the hyperthrophic joint facets. At this point of the procedure the operative microscope was draped in the usual sterile fashion and brought to the field. The rest of the surgical procedure was performed using microdissection technique with the exception of the closure. Under the operating microscope, a decompressive laminectomy was carried out at L3-4, and L4-5 as follow: The laminae, base of the spinous processes and facets were carefully drilled exposing the ligamentum flavum. The facets were abnormal with severe facet arthropathy, vacuum facets, and mass effect over the neural structures. A broad disk protusion was contributing to compression of the neural structures and exiting L4 and L5 nerve roots. A near complete facetectomy was necessary resulting in further mechanical instability. The ligamentum flavum appeared hypertrophic, resulting on mass effect on the dorsal surface of the neural structures. The superior free border of the ligamentum flavum was elevated with a ligament dissector and the ligamentum flavum was removed with a 3 and 4 mm Kerrison forceps. The ligament was very adherent to the dural sac and during the dissection, ans extreme care was taken during the dissection. The exiting nerve roots were identified, and a wide foraminotomy was performed with a Kerrison in their trajectory towards the neural foramenat both levels. Epidural veins located laterally to the dural sac were coagulated with the bipolar cautery, and then incised using microscissors. Gentle medial retraction of the dural sac allowed me to expose the disc space for the discectomy. Upon completion of the discectomy, an excellent decompression of the neural structures was achieved. INTERBODY ARTHRODHESIS In order to correct the narrowing of the disk space and maintain distraction of the space, and to achieve a solid interbody fusion, it was necessary the insertion of an interbody device into the disk space. Otherwise, the disk space would collapse, compromising the result of the surgical procedure. At this point of the procedure, the annulus fibrosus of the disk at L3-4 and L4- 5 were carefully coagulated with a bipolar cautery and incised using an 11 bladed knife. Then, a microdiscectomy was carried out in a standard fashion using a combination of straight and up-biting pituitary forceps. A reverse angle curette was applied underneath the posterior longitudinal ligament, and used to push the disk fragments into the disk space, so they can be safely removed with a pituitary forceps. Once the discectomy was completed, it was necessary to decorticate the endplates, in order to eliminate the cartilaginous endplate and to expose healthy bone appropriate to perform the interbody fusion. The endplates at L3-4 and L4-5 were then thoroughly decorticated using increasing size bone cesar and ring curets, eliminating the cartilaginous fragments from both, the superior and inferior endplates. A disk space distractor was applied to the pedicle screws and gentle distraction was applied. This maneuver was assisted by the use of a disk distractor. Once a thorough preparation of the disk space was achieved, the disk space was irrigated with antibiotic solution, and the interbody fusion was performed by carefully impacting expandable PEEK cages filled with autologous iliac crest bone graft. A solid position of the cage with good purchase was achieved at both levels. The position of the cages were assessed anatomically with a probe and radiologically with the C-arm. POSTEROLATERAL FUSION The posterolateral fusion is a critical component to the procedure, to prevent future fatigue and failure of the instrumental fixation. Initially, the transverse processes of the vertebral bodies, lateral surface of the facets and the lateral gutters of the spine were carefully cleaned, eliminating all soft tissue and muscle attachments. The area was then irrigated with a large amount of antibiotic solution. Subsequently, the transverse processes, lateral surface of the facets, and lateral gutters of the spine were thoroughly decorticated using the TPS drill with a 5mm cutting lydia, exposing cancellous bone, in preparation for the posterolateral fusion. The incision was again irrigated with antibiotic solution. Then, the posterolateral fusion was then performed by carefully packing the lateral gutters of the spine at L3-4 and L4-5 with autologous bone combined with demineralized bone matrix. I packed as much bone as possible. COMPLETION OF THE INSTRUMENTATION AND CLOSURE The rods were brought to the field, applied to all the screws, and the screw caps were sequentially applied. Compression was performed between the pedicle screws, and final tightening of the screws was completed using a torque wrench The incision was again thoroughly irrigated with several liters of antibiotic solution, and hemostasis secured with the bipolar cautery. A Valsalva Maneuver performed by the anesthesiologist failed to show any evidence of cerebrospinal fluid leak or bleeding. A 7 mm Deshawn-Pierre drain was left in the epidural space and externalized through a separate stab incision. The incision was then closed in planes. 0 Vicryl was used in an interrupted fashion to close the thoracolumbar fascia and the superficial fascia. The subcutaneous tissue was then approximated using 3-0 Vicryl in an interrupted fashion. Special care was taken to avoid space. The skin was then closed with 4-0 Vicryl in a running, subcuticular fashion. Dermabond was applied to the skin. Each plane of closure was irrigated with antibiotic solution. At the end of the procedure the sponge, needle and instrument counts were all correct. Estimated blood loss was 200-250 cc or less. No blood transfusion was given. The entire procedure was performed using continuous electrophysiological monitoring of the somatosensorial evoked potentials and EMG. The patient received prophylactic antibiotics. The patient was then extubated and transferred to the recovery room in stable condition.
--- NOTE | 2018-03-05 16:30 | XR ---
EXAM DATE: 03/05/2018 4:20 PM EDT AGE/SEX: 67 years / Female INDICATIONS: Short of breath, respiratory disease CLINICAL DATA: This is the patient's subsequent encounter. Patient reports that signs and symptoms h ave been present for 1 day and indicates a pain score of Nonresponsive. MEDICAL/SURGICAL HISTORY: Asthma. Chronic obstructive pulmonary disease. . lumbar madhuri laminec go COMPARISON: [facility], CHEST SINGLE AP, 12/14/2016. . FINDINGS: There is bibasilar infiltrate, left worse than right with mild central vascular congestion and inters titial prominence. CONCLUSION: Bibasilar infiltrates, left worse than right Electronically signed by: Ben Zaragoza MD 03/05/2018 4:28 PM EDT
[2018-03-05] MEDS: ceFAZolin Inj 2,000 MG in Sodium Chlor 0.9% Inj 100 ML IV.SIG SCH (17:18)
[2018-03-05] MEDS ORDERED: Gabapentin 300 MG Capsule PO SCH (18:00)
[2018-03-05] MEDS: Senna/Docusate Sodium 8.6/50 MG Tablet PO SCH (20:25)
[2018-03-05] MEDS: Budesonide-Formoterol 160/4.5 MCG 6 GM Inhaler INH SCH (20:28)
[2018-03-05] MEDS ORDERED: Budesonide-Formoterol 160/4.5 MCG 6 GM Inhaler INH SCH (21:00)
--- NOTE | 2018-03-05 21:02 | MB ---
cc: Jagdish Crenshaw MD DATE: 03/05/2018 REASON FOR CONSULTATION: COPD and respiratory failure. HISTORY OF PRESENT ILLNESS: This is a 67-year-old white female previously known to me with a history of COPD, who was admitted for redo decompressive lumbar laminectomy and she underwent surgery earlier today, at which time she had a L3-L4, L4-L5 redo decompressive laminectomy and interbody arthrodesis and autologous bone graft and L3-L4, L4-L5 instrumental fixation using transradicular screws and rods and posterolateral fusion using autologous bone graft and rods. The patient postoperatively has been placed in the intensive care unit on oxygen at 6 liters nasal cannula and maintaining a saturation of around 92%. She is awake and conversant and denies any chest pain, but has some discomfort in her back and mild shortness of breath with wheezing. PAST MEDICAL HISTORY: The patient's past history included a history of COPD with emphysema, history of CHF and history of colitis. She has had fibromyalgia, and gastroesophageal reflux disease and a history for hyperlipidemia, hypertension, osteoarthritis, osteoporosis, and spinal stenosis. PAST SURGICAL HISTORY: Includes hysterectomy and lumbar diskectomy and oral surgery. She has also had peripheral vascular artery angioplasty with stenting and arthroscopy of right knee, bilateral breast reduction surgery, cataract extraction with implant, knee replacement on the left. SOCIAL HISTORY: The patient was a smoker up to 1 pack per day, has done so for over 45 years, up until now. Occasional alcohol use. ALLERGIES: NO DRUG ALLERGIES ARE LISTED. FAMILY HISTORY: Noncontributory. REVIEW OF SYSTEMS: The patient has shortness of breath, wheezing, cough and whitish expectoration. She has epigastric distress and reflux. She has urinary frequency. She has no leg swelling, but has joint pains of her extremities and lower back pain. Denies skin lesions. PHYSICAL EXAMINATION: GENERAL: This is an obese, elderly lady, who is lying flat, pale and in no acute distress. VITAL SIGNS: Blood pressure 138/70, pulse is 80, respirations 18, temperature 98.5. HEENT: Head is normocephalic. Pupils are reactive. Sclerae were injected. Tongue is moist. Throat is mildly injected. NECK: Supple, no bruits or thyroid enlargement or lymphadenopathy. CHEST: Distant breath sounds with expiratory wheezes bilaterally and occasional there are crackles at the right base. HEART: Tones are irregular, S1, S2 with no murmur. No S3. ABDOMEN: Soft, obese without masses or organomegaly. The bowel sounds are active. EXTREMITIES: Mild edema with decreased pulses. Reflexes 1+. The patient moves her feet bilaterally. SKIN: Dry and cool. IMPRESSION: 1. Chronic obstructive pulmonary disease with emphysema and chronic bronchitis. 2. Acute postoperative respiratory insufficiency. 3. Chronic respiratory failure with hypoxemia. 4. Congestive heart failure. 5. Peripheral vascular disease. 6. Nicotine dependency. 7. Hypertension. PLAN: The patient will be maintained on O2 at 5 liters and switched to BiPAP at night 12/5 cm and 40% FiO2. We will use Symbicort 160/4.5 mcg 2 puffs twice a day, DuoNeb nebs q.6 hours and p.r.n. Continue with pain control and IV fluids for hydration, incentive spirometry added every 2 hours. Repeat chest x-ray in a.m. and blood gas studies as well. Thank you Dr. De La Cruz for this consultation. VDonald Crenshaw MD VJD/ct , 07:26 PM , 07:39 PM
[2018-03-06] MEDS: ceFAZolin Inj 2,000 MG in Sodium Chlor 0.9% Inj 100 ML IV.SIG SCH ×3 (01:18→17:52)
[2018-03-06 04:51] LABS: Baso % (Auto) 0.1 % (0.0-2.0); Hematocrit 35.3 % (35.0-46.0); Hemoglobin 11.4 gm/dL (11.6-15.3); Lymph # (Auto) 1.8 th/mm3 (1.0-4.8); Lymph % (Auto) 10.1 % (9.0-44.0); Mean Corpuscular HGB Conc 32.2 % (32.0-36.0); Mean Corpuscular Hemoglobin 30.3 pg (27.0-34.0); Mean Platelet Volume 8.6 fL (7.0-11.0); Mono # (Auto) 1.7 th/mm3 (0.0-0.9); Mono % (Auto) 9.3 % (0.0-8.0); Neut # (Auto) 14.5 th/mm3 (1.8-7.7); Neut % (Auto) 80.5 % (16.0-70.0); Platelet Count 186 th/mm3 (150-450); Red Blood Count 3.75 mil/mm3 (4.00-5.30); Red Cell Distribution Width 14.4 % (11.6-17.2)
--- NOTE | 2018-03-06 05:08 | XR ---
EXAM DATE: 03/06/2018 4:09 AM EDT AGE/SEX: 67 years / Female INDICATIONS: Shortness of breath. CLINICAL DATA: This is the patient's subsequent encounter. Patient reports that signs and symptoms h ave been present for 1 week and indicates a pain score of 0/10. MEDICAL/SURGICAL HISTORY: . Asthma. Chronic obstructive pulmonary disease. . Lumbar madhuri charles ectomy. COMPARISON: [facility] [place] [facility] [place] 1[place] SINGLE AP, 03/05/2018. . FINDINGS: A single AP view of the chest demonstrates bibasilar densities greater left lower lobe. Heart normal in size. The cardiomediastinal contours are unremarkable. Osseous structures are intact. CONCLUSION: Persistent bibasilar patchy infiltrates. Electronically signed by: Efrain Cabello MD 03/06/2018 5:06 AM EDT
[2018-03-06 05:33] LABS: Albumin 2.6 g/dL (3.4-5.0); Calcium 7.2 mg/dL (8.5-10.1); Carbon Dioxide 23.5 meq/L (21.0-32.0); Magnesium 1.7 mg/dL (1.5-2.5); Phosphorus 4.4 mg/dL (2.5-4.9); Potassium 4.8 meq/L (3.5-5.1); Total Protein 5.5 g/dL (6.4-8.2)
[2018-03-06] MEDS ORDERED: MethylPREDNISolone Sod Succinate Inj 125 MG/2 ML Vial IV.PUSH ONE (07:13)
--- NOTE | 2018-03-06 07:19 | P.PNCC ---
Subjective Subjective Remarks/Hospital Course: Patient is a 67-year-old female with history of COPD, continued tobacco abuse, coronary artery disease, peripheral arterial disease, CHF with preserved ejection fraction, and hypertension. Patient was electively admitted to Dr. De La Cruz service today for L3-4, L4-5 redo decompressive laminectomy, interbody arthrodesis, L3-4, L4-5 posterolateral fusion. EBL 200-250cc. Postop patient was extubated and moved to the PACU. I evaluated the patient in the PACU. She appears to be in moderate distress due to pain. According to the DERRICK HELPER patient had wheezing on arrival from the OR, improved with DuoNeb breathing treatments. Patient has undergone a previous lumbar laminectomy in [address] De L aCruz, unfortunately her lumbar pain recurred with the radiation to the legs. MRI of the lumbar spine showed L4-5 spondylolisthesis. As the patient did not improve with physical therapy and pain management, she was recommended to undergo redo laminectomy. SUBJ 03/06: Lying in bed still in significant postop pain. Using Dilaudid RACING MECHANIC. Also complains of bilateral wheezing. Chest x-ray shows bibasilar infiltrate predominantly left side. Currently wheezing on exam. Give Solu-Medrol 80 mg 1 increased frequency of DuoNeb. Add azithromycin for atypical coverage and COPD exacerbation Objective Vital Signs / I&O: Vital Signs 03/05/18 07:41 03/05/18 14:51 03/05/18 15:00 Temperature 98.6 F 97.6 F Pulse Rate 76 90 87 Respiratory Rate 18 15 20 Blood Pressure 127/82 112/72 119/52 L Pulse Oximetry 90 L 87 L 93 L 03/05/18 15:15 03/05/18 15:30 03/05/18 15:45 Temperature 97.8 F Pulse Rate 86 87 86 Respiratory Rate 20 20 17 Blood Pressure 119/66 117/64 123/69 Pulse Oximetry 90 L 91 L 90 L 03/05/18 16:00 03/05/18 16:03 03/05/18 16:04 Temperature 97.9 F Pulse Rate 78 79 80 Respiratory Rate 21 19 28 H Blood Pressure 138/67 116/82 Pulse Oximetry 90 L 95 03/05/18 17:00 03/05/18 18:00 03/05/18 19:00 Temperature Pulse Rate 76 75 75 Respiratory Rate 20 13 16 Blood Pressure 136/67 Pulse Oximetry 92 L 91 L 92 L 03/05/18 20:00 03/05/18 20:26 03/05/18 21:00 Temperature 98.7 F Pulse Rate 78 85 Respiratory Rate 26 H 20 34 H Blood Pressure 125/75 Pulse Oximetry 89 L 92 L 03/05/18 21:17 03/05/18 21:33 03/05/18 21:59 Temperature Pulse Rate 69 Respiratory Rate 18 16 Blood Pressure 92/61 L Pulse Oximetry 91 L 91 L 03/05/18 22:00 03/05/18 22:34 03/05/18 23:00 Temperature Pulse Rate 68 61 60 Respiratory Rate 18 18 35 H Blood Pressure Pulse Oximetry 91 L 90 L 03/06/18 00:00 03/06/18 01:00 03/06/18 01:11 Temperature 98.6 F Pulse Rate 69 61 62 Respiratory Rate 13 15 16 Blood Pressure 104/52 L 102/64 Pulse Oximetry 91 L 90 L 90 L 03/06/18 03:47 03/06/18 04:00 Temperature 98.7 F Pulse Rate 58 L 78 Respiratory Rate 16 26 H Blood Pressure 116/52 L Pulse Oximetry 92 L Intake & Output 03/05/18 03/06/18 03/06/18 18:59 06:59 18:59 Intake Total 2240 / 2240 2520 / 2520 Output Total 730 / 730 1050 / 1050 Balance 1510 / 1510 1470 / 1470 Weight 93.6 kg 102.9 kg Intake: IV 200 / 200 2100 / 2100 NS + KCl 20 mEq Inj 1,000 ML @ 1999 / 1999 100 mls/hr IV.CONT .Q10H REPLACED BY [facility] Rx #:[id number] Ancef 2 GM Premix Inj 2 gm In 100 / 100 100 ml @ 0 mls/hr IV.SIG .STK- MED [facility] Rx#:[id number] Ancef Inj 2,000 MG In NS Inj 100 / 100 100 / 100 100 ML @ 100 mls/hr IV.SIG Q8H REPLACED BY [facility] Rx#:[id number] Oral 440 / 440 420 / 420 Anesthesia Amount 1600 / 1600 Output: Estimated Blood Loss 300 / 300 300 / 300 Urine Amount (Catheter) 350 / 350 550 / 550 Indwelling Urethral Catheter 350 / 350 550 / 550 Wound Drainage 80 / 80 200 / 200 # 1 Medial Back Vincent 80 / 80 200 / 200 Other: Date of Last Bowel Movement 03/04/18 03/04/18 Weight On Admission 93.6 kg Result Diagrams: 03/06/18 04:40 03/06/18 04:50 Objective Remarks: General: 67 yo female who is lying in bed moderate distress due to pain HEENT: Normocephalic, atraumatic. Airway patent Eyes: Pupils equal round. Extra-ocular movement intact. Nonicteric sclera. Neck: soft, supple Lungs: Air entry equal but diminished bilaterally. Mild expiratory wheezing no distress CVS: S1, S2 normal no murmurs Skin: warm and dry, no cyanosis. Neuro: Patient is alert awake but complains of postop pain. She is able to move extremities and no obvious focal deficits. Single CLARIBEL drain in place posteriorly 280 mL output since placement Assessment and Plan - Assessment and Plan Plan: ASSESSMENT: Status post redo lumbar laminectomy COPD with acute exacerbation Bibasilar infiltrates Chronic hypoxemia Postop pain History of CHF Coronary artery disease Peripheral arterial disease Tobacco abuse Hypertension PLAN: NEURO: -Minimize sedation. Pain controlled with as needed [place] and Dilaudid RACING MECHANIC -Continue gabapentin RESP: -DuoNeb every 4 hours scheduled and as needed -Continue home Symbicort, IV Solu-Medrol 80 mg 1 -Chest x-ray showing bibasilar infiltrates. Check sputum culture -Currently on Ancef, add azithromycin for atypical coverage -Aggressive pulmonary toilet, EzPAP every 4 hours with breathing treatments -Continue amlodipine and statin. Continue metoprolol -Hold cilostazol and Plavix until cleared by Dr. De La Cruz -Continue Symbicort, add Spiriva CV: -Normal saline IV fluids at 100 ml per hour-reduce to 40 mL/h -Previous Echo showed EF 50% per Dr. Encarnacion note GI: -Diet per neurosurgery -PPI, bowel regimen : -Monitor renal function closely. ID: -Currently on cefazolin per neurosurgery. Add azithromycin for atypical coverage -Cannot rule out pneumonia but less likely has the patient is not spiking fever -Follow-up sputum culture HEME: -Monitor CBC, coags -Leukocytosis most likely stress related ENDO: -Electrolyte replacement per protocol PROPH: -Bilateral lower extremity SCDs. PPI. Chemical DVT prophylaxis is contraindicated until cleared by neurosurgery LINES: -Utilize peripheral IVs, central line if needed Level 3 Code Status: Full
[2018-03-06] MEDS ORDERED: Sod Chloride 0.9% Inj 1,000 ML IV.CONT SCH (07:30)
[2018-03-06] MEDS ORDERED: BISMUTH SUBSALICYLATE PO SCH (09:00)
[2018-03-06] MEDS ORDERED: [UNRECOGNIZED DRUG - REMARK] PO SCH (09:00)
[2018-03-06] MEDS ORDERED: Non-Formulary Drug (Lactobacillus Rhamnosus Gg [Culturelle] 1 CAP) PO SCH (09:00)
[2018-03-06] MEDS ORDERED: AMLODIPINE ATORVASTATIN PO SCH (09:00)
[2018-03-06] MEDS: Azithromycin Inj 500 MG in Sodium Chlor 0.9% Inj 250 ML IV.SIG SCH (09:28)
[2018-03-06] MEDS: Tiotropium Bromide 18 MCG/ACT Inhaler INH SCH (09:29)
[2018-03-06] MEDS: Senna/Docusate Sodium 8.6/50 MG Tablet PO SCH ×2 (09:30→21:03)
[2018-03-06] MEDS: amLODIPine 5 MG Tablet PO SCH (09:31)
[2018-03-06] MEDS: Gabapentin 300 MG Capsule PO SCH ×3 (09:31→19:50)
[2018-03-06 10:47] LABS: ABG Base Excess -7.2 mmol/L (-2-2); ABG PCO2 39 mmHg (38-42); ABG PO2 70 mmHg (61-120)
[2018-03-06] MEDS ORDERED: Sodium Bicarbonate 8.4% Inj 50 MEQ/50 ML Syringe ONE (11:12)
[2018-03-06] MEDS: Budesonide-Formoterol 160/4.5 MCG 6 GM Inhaler INH SCH ×2 (11:17→21:03)
[2018-03-06] MEDS ORDERED: Sodium Bicarbonate 8.4% Inj 50 MEQ/50 ML Syringe IV.PUSH ONE (12:00)
--- NOTE | 2018-03-06 13:08 | P.PN ---
Subjective Interval history: Alert and on O2 6L. Has back pains. SOB at rest and a cough.still wheezing Physical Exam Vital signs: Vital Signs 03/05/18 14:51 03/05/18 15:00 03/05/18 15:15 Temperature 97.6 F Pulse Rate 90 87 86 Respiratory Rate 15 20 20 Blood Pressure 112/72 119/52 L 119/66 Pulse Oximetry 87 L 93 L 90 L 03/05/18 15:30 03/05/18 15:45 03/05/18 16:00 Temperature 97.8 F 97.9 F Pulse Rate 87 86 78 Respiratory Rate 20 17 21 Blood Pressure 117/64 123/69 138/67 Pulse Oximetry 91 L 90 L 90 L 03/05/18 16:03 03/05/18 16:04 03/05/18 17:00 Temperature Pulse Rate 79 80 76 Respiratory Rate 19 28 H 20 Blood Pressure 116/82 Pulse Oximetry 95 92 L 03/05/18 18:00 03/05/18 19:00 03/05/18 20:00 Temperature 98.7 F Pulse Rate 75 75 78 Respiratory Rate 13 16 26 H Blood Pressure 136/67 125/75 Pulse Oximetry 91 L 92 L 89 L 03/05/18 20:26 03/05/18 21:00 03/05/18 21:17 Temperature Pulse Rate 85 Respiratory Rate 20 34 H Blood Pressure Pulse Oximetry 92 L 91 L 03/05/18 21:33 03/05/18 21:59 03/05/18 22:00 Temperature Pulse Rate 69 68 Respiratory Rate 18 16 18 Blood Pressure 92/61 L Pulse Oximetry 91 L 91 L 03/05/18 22:34 03/05/18 23:00 03/06/18 00:00 Temperature 98.6 F Pulse Rate 61 60 69 Respiratory Rate 18 35 H 13 Blood Pressure 104/52 L Pulse Oximetry 90 L 91 L 03/06/18 01:00 03/06/18 01:11 03/06/18 03:47 Temperature Pulse Rate 61 62 58 L Respiratory Rate 15 16 16 Blood Pressure 102/64 Pulse Oximetry 90 L 90 L 03/06/18 04:00 Temperature 98.7 F Pulse Rate 78 Respiratory Rate 26 H Blood Pressure 116/52 L Pulse Oximetry 92 L Intake & Output 03/05/18 03/06/18 03/06/18 18:59 06:59 18:59 Intake Total 2240 / 2240 2520 / 2520 Output Total 730 / 730 1050 / 1050 Balance 1510 / 1510 1470 / 1470 Weight 93.6 kg 102.9 kg Intake: IV 200 / 200 2100 / 2100 NS + KCl 20 mEq Inj 1,000 ML @ 2000 / 2000 100 mls/hr IV.CONT .Q10H [facility] Rx #:[id number] Ancef 2 GM Premix Inj 2 gm In 100 / 100 100 ml @ 0 mls/hr IV.SIG .STK- [facility] Rx#:[id number] Ancef Inj 2,000 MG In NS Inj 100 / 100 100 / 100 100 ML @ 100 mls/hr IV.SIG Q8H [facility] Rx#:[id number] Oral 440 / 440 420 / 420 Anesthesia Amount 1600 / 1600 Output: Estimated Blood Loss 300 / 300 300 / 300 Urine Amount (Catheter) 350 / 350 550 / 550 Indwelling Urethral Catheter 350 / 350 550 / 550 Wound Drainage 80 / 80 200 / 200 # 1 Medial Back Vincent 80 / 80 200 / 200 Other: Date of Last Bowel Movement 03/04/18 03/04/18 Weight On Admission 93.6 kg Narrative: General: Elderly obese female who is in moderate distress due to pain HEENT: Normocephalic, atraumatic.clear throat Eyes: Pupils equal round. Nonicteric sclera. Neck: No nodes, supple Lungs: Air entry equal but diminished bilaterally and bilateral wheezes CVS: S1, S2 normal no murmurs Skin: warm and dry, no cyanosis. Neuro: Patient is alert awake and alert , and talking well. No gross deficits - Urinary Catheter Management Indwelling Urethral Catheter Cath placed during this visit: yes Reason for continuing: Hourly intake/output Insertion date: 03/05/18 Insertion time: 09:30 Results - Labs CBC & Chem 7: 03/06/18 04:40 03/06/18 04:50 Laboratory Results - last 24 hr 03/06/18 03/06/18 03/06/18 04:40 04:50 10:35 WBC 18.0 H RBC 3.75 L Hgb 11.4 L Hct 35.3 MCV 94.0 MCH 30.3 MCHC 32.2 RDW 14.4 Plt Count 186 MPV 8.6 Neut % (Auto) 80.5 H Lymph % (Auto) 10.1 [place] % (Auto) 9.3 H Eos % (Auto) 0.0 Baso % (Auto) 0.1 Neut # (Auto) 14.5 H Lymph # (Auto) 1.8 [place] # (Auto) 1.7 H Eos # (Auto) 0.0 Baso # (Auto) 0.0 WBC Differential . Differential Comment Auto diff final Puncture Site Art line Patient Temperature 98.6 O2 Saturation 89 L* ABG pH 7.29 L* ABG pCO2 39 ABG pO2 70 ABG HCO3 18 L ABG O2 Content 13.8 ABG Base Excess -7.2 L ABG Methemoglobin 1.2 Mil Test Present Hemoglobin 10.9 L Carboxyhemoglobin 1.5 O2 Delivery Device Nasal cannula Liter Flow 6.00 Inspired O2 21 Critical Value Yes Sodium 141 Potassium 4.8 Chloride 110 H Carbon Dioxide 23.5 Anion Gap 8 BUN 21 H Creatinine 0.99 Estimated GFR 56 L Random Glucose 126 H Calcium 7.2 L* Prot Corrected Calcium 8.1 L Phosphorus 4.4 Magnesium 1.7 Total Bilirubin 0.3 AST 35 ALT 45 Alkaline Phosphatase 89 Total Protein 5.5 L Albumin 2.6 L - Imaging Impressions Lumbar Spine X-Ray 03/05/18 00:00 CONCLUSION: 1. Bilateral transpedicular fixation from L3 through L5 with intervertebral disc prostheses. 2. Minimal grade 1 anterolisthesis of L3 on 4 and L4 on 5. Chest X-Ray 03/05/18 16:00 CONCLUSION: Bibasilar infiltrates, left worse than right Chest X-Ray 03/06/18 06:00 CONCLUSION: Persistent bibasilar patchy infiltrates. Assessment and Plan - Assessment (1) Status post lumbar laminectomy Code(s): Z98.890 - Other specified postprocedural states Status: Acute (2) Respiratory failure following trauma and surgery Code(s): J95.821 - Acute postprocedural respiratory failure Status: Acute (3) COPD exacerbation Code(s): J44.1 - Chronic obstructive pulmonary disease with (acute) exacerbation Status: Acute (4) Pulmonary fibrosis, postinflammatory Code(s): J84.10 - Pulmonary fibrosis, unspecified Status: Acute (5) NICKOLAS (obstructive sleep apnea) Code(s): G47.33 - Obstructive sleep apnea (adult) (pediatric) Status: Acute (6) Hypertension Code(s): I10 - Essential (primary) hypertension Status: Acute - Plan 1. O2 at 5 L or ventimask at 50 % 2. Duonebs qid. 3. Symbicort 160/4.5 mcg , 2 puffs BID 4. EZPAP with nebs qid. 5. Solumedrol 40 mg BID 6. CBC,BMP ,CXR in am
--- NOTE | 2018-03-06 18:30 | P.PNNS ---
Subjective Interval history: POD #1 Alert and on O2 6L. Has incisional back pains. SOB at rest and a cough.still wheezing Physical Exam Vital signs: Vital Signs 03/05/18 19:00 03/05/18 20:00 03/05/18 20:26 Temperature 98.7 F Pulse Rate 75 78 Respiratory Rate 16 26 H 20 Blood Pressure 125/75 Pulse Oximetry 92 L 89 L 03/05/18 21:00 03/05/18 21:17 03/05/18 21:33 Temperature Pulse Rate 85 Respiratory Rate 34 H 18 Blood Pressure Pulse Oximetry 92 L 91 L 03/05/18 21:59 03/05/18 22:00 03/05/18 22:34 Temperature Pulse Rate 69 68 61 Respiratory Rate 16 18 18 Blood Pressure 92/61 L Pulse Oximetry 91 L 91 L 03/05/18 23:00 03/06/18 00:00 03/06/18 01:00 Temperature 98.6 F Pulse Rate 60 69 61 Respiratory Rate 35 H 13 15 Blood Pressure 104/52 L Pulse Oximetry 90 L 91 L 90 L 03/06/18 01:11 03/06/18 03:47 03/06/18 04:00 Temperature 98.7 F Pulse Rate 62 58 L 78 Respiratory Rate 16 16 26 H Blood Pressure 102/64 116/52 L Pulse Oximetry 90 L 92 L 03/06/18 08:00 03/06/18 10:00 03/06/18 12:00 Temperature 97.7 F 98.4 F Pulse Rate 65 98 H 87 Respiratory Rate 22 16 Blood Pressure 118/50 L 105/60 Pulse Oximetry 91 L 89 L 03/06/18 14:00 03/06/18 14:50 Temperature Pulse Rate 78 65 Respiratory Rate 18 Blood Pressure Pulse Oximetry 89 L Intake & Output 03/05/18 03/06/18 03/06/18 18:59 06:59 18:59 Intake Total 2240 / 2240 2520 / 2520 1150 / 1150 Output Total 730 / 730 1050 / 1050 1650 / 1650 Balance 1510 / 1510 1470 / 1470 -500 / -500 Weight 93.6 kg 102.9 kg Intake: IV 200 / 200 2100 / 2100 350 / 350 NS + KCl 20 mEq Inj 1,000 ML @ 1999 / 1999 100 mls/hr IV.CONT .Q10H [facility] Rx #:[id number] Azithromycin Inj 500 MG In NS 250 / 250 Inj 250 ML @ 250 mls/hr IV.SIG Q24H [facility] Rx#:[id number] Ancef 2 GM Premix Inj 2 gm In 100 / 100 100 ml @ 0 mls/hr IV.SIG .STK- MED ONE Rx#:[id number] Ancef Inj 2,000 MG In NS Inj 100 / 100 100 / 100 100 / 100 100 ML @ 100 mls/hr IV.SIG Q8H [facility] Rx#:[id number] Oral 440 / 440 420 / 420 700 / 700 Anesthesia Amount 1600 / 1600 Other 100 / 100 Output: Estimated Blood Loss 300 / 300 300 / 300 Urine Amount (Catheter) 350 / 350 550 / 550 1550 / 1550 Indwelling Urethral Catheter 350 / 350 550 / 550 1550 / 1550 Wound Drainage 80 / 80 200 / 200 100 / 100 # 1 Medial Back Vincent 80 / 80 200 / 200 100 / 100 Other: Date of Last Bowel Movement 03/04/18 03/04/18 03/04/18 Weight On Admission 93.6 kg Narrative: Mild distress due to incsicional pain HEENT: Normocephalic, atraumatic.clear throat Eyes: Pupils equal round. Nonicteric sclera. Neck: No nodes, supple Lungs: Air entry equal but diminished bilaterally and bilateral wheezes CVS: S1, S2 normal no murmurs Skin: warm and dry, no cyanosis. Neuro: Patient is alert awake and alert , and talking well. No deficits - Urinary Catheter Management Indwelling Urethral Catheter Cath placed during this visit: yes Reason for continuing: Hourly intake/output Insertion date: 03/05/18 Insertion time: 09:30 Assessment and Plan - Plan Lumbar Spine X-Ray 03/05/18 00:00 CONCLUSION: 1. Bilateral transpedicular fixation from L3 through L5 with intervertebral disc prostheses. 2. Minimal grade 1 anterolisthesis of L3 on 4 and L4 on 5. Chest X-Ray 03/05/18 16:00 CONCLUSION: Bibasilar infiltrates, left worse than right Chest X-Ray 03/06/18 06:00 CONCLUSION: Persistent bibasilar patchy infiltrates. Assessment and Plan - Assessment (1) Status post lumbar laminectomy Code(s): Z98.890 - Other specified postprocedural states Status: Acute (2) Respiratory failure following trauma and surgery Code(s): J95.821 - Acute postprocedural respiratory failure Status: Acute (3) COPD exacerbation Code(s): J44.1 - Chronic obstructive pulmonary disease with (acute) exacerbation Status: Acute (4) Pulmonary fibrosis, postinflammatory Code(s): J84.10 - Pulmonary fibrosis, unspecified Status: Acute (5) NICKOLAS (obstructive sleep apnea) Code(s): G47.33 - Obstructive sleep apnea (adult) (pediatric) Status: Acute (6) Hypertension Code(s): I10 - Essential (primary) hypertension Status: Acute - Plan 1. O2 weaning 2. Duonebs qid. 3. Symbicort 160/4.5 mcg , 2 puffs BID 4. 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 Solumedrol 40 mg BID 6. Transfer to floor
[2018-03-06] MEDS: HYDROmorphone PCA Inj 6 MG/30 ML PCA.VIAL PCA PRN ×2 (19:36→19:37)
[2018-03-06] MEDS: MethylPREDNISolone Sod Succinate Inj 40 MG/ML Vial IV.PUSH SCH (21:03)
[2018-03-07] MEDS: ceFAZolin Inj 2,000 MG in Sodium Chlor 0.9% Inj 100 ML IV.SIG SCH ×3 (00:14→18:25)
--- NOTE | 2018-03-07 04:12 | XR ---
EXAM DATE: 03/07/2018 4:07 AM EDT AGE/SEX: 67 years / Female INDICATIONS: Short of breath. CLINICAL DATA: This is the patient's subsequent encounter. Patient reports that signs and symptoms h ave been present for 1 week and indicates a pain score of 5/10. MEDICAL/SURGICAL HISTORY: Asthma. Chronic obstructive pulmonary disease. . Lumbar madhuri laminec go. COMPARISON: C, CHEST 1V SINGLE AP, 03/06/2018. . FINDINGS: The heart size is enlarged. The lungs demonstrate diffuse increased interstitial markings. There is s ome linear density seen at the bases bilaterally. CONCLUSION: Diffuse increased interstitial markings likely related to edema. Suspected linear atelectasis or consolidation at the bases. Electronically signed by: Ben Blakely MD 03/07/2018 4:11 AM EDT
[2018-03-07 04:34] LABS: Alanine Aminotransferase 26 U/L (10-53); Albumin 2.5 g/dL (3.4-5.0); Anion Gap 9 meq/L (5-15); Aspartate Aminotransferase 31 U/L (15-37); Blood Urea Nitrogen 14 mg/dL (7-18); Calcium 7.6 mg/dL (8.5-10.1); Carbon Dioxide 24.5 meq/L (21.0-32.0); Chloride 111 meq/L (98-107); Glomerular Filtration Rate 69 mL/min (>89); Glucose,Random 155 mg/dL (74-106); Potassium 4.6 meq/L (3.5-5.1)
[2018-03-07 04:36] LABS: Alkaline Phosphatase 85 U/L (45-117)
[2018-03-07 04:46] LABS: Sodium 144 meq/L (136-145)
[2018-03-07] MEDS: Azithromycin Inj 500 MG in Sodium Chlor 0.9% Inj 250 ML IV.SIG SCH (07:27)
--- NOTE | 2018-03-07 08:36 | P.PNCC ---
Subjective Subjective Remarks/Hospital Course: Patient is a 67-year-old female with history of COPD, continued tobacco abuse, coronary artery disease, peripheral arterial disease, CHF with preserved ejection fraction, and hypertension. Patient was electively admitted to Dr. De La Cruz service today for L3-4, L4-5 redo decompressive laminectomy, interbody arthrodesis, L3-4, L4-5 posterolateral fusion. EBL 200-250cc. Postop patient was extubated and moved to the PACU. I evaluated the patient in the PACU. She appears to be in moderate distress due to pain. According to the RADIOSONDE OPERATOR patient had wheezing on arrival from the OR, improved with DuoNeb breathing treatments. Patient has undergone a previous lumbar laminectomy in [address] De La Cruz, unfortunately her lumbar pain recurred with the radiation to the legs. MRI of the lumbar spine showed L4-5 spondylolisthesis. As the patient did not improve with physical therapy and pain management, she was recommended to undergo redo laminectomy. SUBJ 03/06: Lying in bed still in significant postop pain. Using Dilaudid GERIATRIC PHYSICAL THERAPIST. Also complains of bilateral wheezing. Chest x-ray shows bibasilar infiltrate predominantly left side. Currently wheezing on exam. Give Solu-Medrol 80 mg 1 increased frequency of DuoNeb. Add azithromycin for atypical coverage and COPD exacerbation 03/07: Breathing more comfortably pain appears to have improved. Patient states she has some baseline wheezing at rest. CLARIBEL drain with 50 mL's sanguinous output Objective Vital Signs / I&O: Vital Signs 03/06/18 10:00 03/06/18 12:00 03/06/18 14:00 Temperature 98.4 F Pulse Rate 98 H 87 78 Respiratory Rate 16 Blood Pressure 105/60 Pulse Oximetry 89 L 03/06/18 14:50 03/06/18 16:00 03/06/18 20:00 Temperature 98.4 F 98.4 F Pulse Rate 65 65 85 Respiratory Rate 18 20 20 Blood Pressure 110/90 158/76 H Pulse Oximetry 89 L 88 L 03/06/18 20:27 03/06/18 20:30 03/06/18 21:02 Temperature Pulse Rate 89 Respiratory Rate 22 27 H Blood Pressure Pulse Oximetry 91 L 03/06/18 23:45 03/07/18 00:00 08/16/18 02:07 Temperature 98.6 F Pulse Rate 83 78 Respiratory Rate 18 27 H Blood Pressure 151/76 H Pulse Oximetry 87 L 91 L 03/07/18 02:08 03/07/18 02:09 03/07/18 03:39 Temperature Pulse Rate 90 Respiratory Rate 29 H 29 H 18 Blood Pressure Pulse Oximetry 03/07/18 04:00 03/07/18 08:00 Temperature 97.5 F L 98.1 F Pulse Rate 84 82 Respiratory Rate 18 30 H Blood Pressure 163/82 H 167/88 H Pulse Oximetry 91 L 91 L Intake & Output 03/06/18 03/07/18 03/07/18 18:59 06:59 18:59 Intake Total 1150 / 1150 2680 / 2680 Output Total 2180 / 2180 1050 / 1050 Balance -1030 / -1030 1630 / 1630 Weight 104.8 kg Intake: IV 350 / 350 2680 / 2680 NS Inj 1,000 ML @ 40 mls/hr IV. 480 / 480 CONT .Q24H [facility] Rx#:[id number] Azithromycin Inj 500 MG In NS 250 / 250 Inj 250 ML @ 250 mls/hr IV.SIG Q24H [facility] Rx#:[id number] Ancef Inj 2,000 MG In NS Inj 100 / 100 200 / 200 100 ML @ 100 mls/hr IV.SIG Q8H [facility] Rx#:[id number] Oral 700 / 700 Other 100 / 100 Output: Urine Amount (Catheter) 2049 1000 / 1000 Indwelling Urethral Catheter 2049 1000 / 1000 Wound Drainage 130 / 130 50 / 50 # 1 Medial Back Vincent 130 / 130 50 / 50 Other: Date of Last Bowel Movement 03/04/18 03/04/18 03/04/18 Result Diagrams: 03/06/18 04:40 03/07/18 03:16 Objective Remarks: General: 67 yo female who is lying in bed appears comfortable HEENT: Normocephalic, atraumatic. Airway patent Eyes: Pupils equal round. Extra-ocular movement intact. Neck: soft, supple Lungs: Air entry equal but diminished bilaterally. Mild expiratory wheezing no distress CVS: S1, S2 normal no murmurs Skin: warm and dry, no cyanosis. Neuro: Patient is alert awake but complains of postop pain. She is able to move extremities and no obvious focal deficits. Single CLARIBEL drain in place posteriorly 50 mL output overnight Assessment and Plan - Assessment and Plan Plan: ASSESSMENT: Status post redo lumbar laminectomy COPD with acute exacerbation Bibasilar infiltrates Chronic hypoxemia History of CHF Coronary artery disease Peripheral arterial disease Tobacco abuse Hypertension PLAN: NEURO: -Pain controlled with as needed [place] and Dilaudid GERIATRIC PHYSICAL THERAPIST -Continue gabapentin RESP: -DuoNeb every 4 hours scheduled and as needed -Continue home Symbicort, Spiriva IV Solu-Medrol 40 mg q12 -Chest x-ray showing bilateral infiltrates. IV Lasix 20 mg 1 -Currently on Ancef, added azithromycin for atypical coverage -Aggressive pulmonary toilet, EzPAP every 4 hours with breathing treatments -Continue amlodipine and statin. Continue metoprolol -Holding cilostazol and Plavix until cleared by Dr. De La Cruz -Pulmonology Dr. Lincoln following CV: -DC IVF, give IV Lasix 20 mg x1 -Previous Echo showed EF 50% per Dr. Encarnacion note GI: -Heart healthy diet -PPI, bowel regimen : -Monitor renal function closely. ID: -Currently on cefazolin per neurosurgery. Added azithromycin for atypical coverage -Cannot rule out pneumonia but less likely has the patient is not spiking fever -Follow-up sputum culture HEME: -Monitor CBC, coags -Leukocytosis most likely stress related ENDO: -Electrolyte replacement per protocol PROPH: -Bilateral lower extremity SCDs. PPI. Chemical DVT prophylaxis is contraindicated until cleared by neurosurgery LINES: -Utilize peripheral IVs, central line if needed Level [facility] Dr[facility] De [facility]. Consult hospitalist for medical management from tomorrow 03/08/2018 Code Status: Full
[2018-03-07 08:51] LABS: Hematocrit 34.4 % (35.0-46.0); Hemoglobin 11.2 gm/dL (11.6-15.3); Mean Corpuscular HGB Conc 32.4 % (32.0-36.0); Mean Corpuscular Hemoglobin 30.3 pg (27.0-34.0); Mean Corpuscular Volume 93.5 fL (80.0-100.0); Mean Platelet Volume 8.8 fL (7.0-11.0); Platelet Count 160 th/mm3 (150-450); Red Blood Count 3.68 mil/mm3 (4.00-5.30); Red Cell Distribution Width 14.3 % (11.6-17.2); White Blood Count 16.4 th/mm3 (4.0-11.0)
[2018-03-07] MEDS: amLODIPine 5 MG Tablet PO SCH (09:07)
[2018-03-07] MEDS: Senna/Docusate Sodium 8.6/50 MG Tablet PO SCH ×2 (09:07→21:20)
[2018-03-07] MEDS: Tiotropium Bromide 18 MCG/ACT Inhaler INH SCH (09:08)
[2018-03-07] MEDS: MethylPREDNISolone Sod Succinate Inj 40 MG/ML Vial IV.PUSH SCH ×2 (09:08→21:20)
[2018-03-07] MEDS: Budesonide-Formoterol 160/4.5 MCG 6 GM Inhaler INH SCH ×2 (09:09→21:21)
--- NOTE | 2018-03-07 11:52 | P.PNNS ---
Subjective Interval history: POD 2: c/o incisional pain when she moves, otherwise doing well. Physical Exam Vital signs: Vital Signs 03/06/18 12:00 03/06/18 14:00 03/06/18 14:50 Temperature 98.4 F Pulse Rate 87 78 65 Respiratory Rate 16 18 Blood Pressure 105/60 Pulse Oximetry 89 L 89 L 03/06/18 16:00 03/06/18 20:00 03/06/18 20:27 Temperature 98.4 F 98.4 F Pulse Rate 65 85 89 Respiratory Rate 20 20 22 Blood Pressure 110/90 158/76 H Pulse Oximetry 88 L 03/06/18 20:30 03/06/18 21:02 03/06/18 23:45 Temperature Pulse Rate 83 Respiratory Rate 27 H 18 Blood Pressure Pulse Oximetry 91 L 03/07/18 00:00 03/07/18 02:07 03/07/18 02:08 Temperature 98.6 F Pulse Rate 78 Respiratory Rate 27 H 29 H Blood Pressure 151/76 H Pulse Oximetry 87 L 91 L 03/07/18 02:09 03/07/18 03:39 03/07/18 04:00 Temperature 97.5 F L Pulse Rate 90 84 Respiratory Rate 29 H 18 18 Blood Pressure 163/82 H Pulse Oximetry 91 L 03/07/18 08:00 03/07/18 09:12 Temperature 98.1 F Pulse Rate 82 95 H Respiratory Rate 30 H 24 Blood Pressure 167/88 H Pulse Oximetry 91 L 89 L Intake & Output 03/06/18 03/07/18 03/07/18 18:59 06:59 18:59 Intake Total 1150 / 1150 2680 / 2680 Output Total 2180 / 2180 1050 / 1050 Balance -1030 / -1030 1630 / 1630 Weight 104.8 kg Intake: IV 350 / 350 2680 / 2680 NS Inj 1,000 ML @ 40 mls/hr IV. 480 / 480 CONT .Q24H [facility] Rx#:[id number] Azithromycin Inj 500 MG In NS 250 / 250 Inj 250 ML @ 250 mls/hr IV.SIG Q24H [facility] Rx#:[id number] Ancef Inj 2,000 MG In NS Inj 100 / 100 200 / 200 100 ML @ 100 mls/hr IV.SIG Q8H [facility] Rx#:[id number] Oral 700 / 700 Other 100 / 100 Output: Urine Amount (Catheter) 2049 1000 / 1000 Indwelling Urethral Catheter 2049 1000 / 1000 Wound Drainage 130 / 130 50 / 50 # 1 Medial Back Vincent 130 / 130 50 / 50 Other: Date of Last Bowel Movement 03/04/18 03/04/18 03/04/18 Narrative: Mild distress due to incsicional pain HEENT: Normocephalic, atraumatic.clear throat Eyes: Pupils equal round. Nonicteric sclera. Neck: No nodes, supple Lungs: Air entry equal but diminished bilaterally and bilateral wheezes CVS: S1, S2 normal no murmurs Skin: warm and dry, no cyanosis. Neuro: Patient is alert awake and alert , and talking well. No deficits - Urinary Catheter Management Indwelling Urethral Catheter Cath placed during this visit: yes Reason for continuing: Hourly intake/output Insertion date: 03/05/18 Insertion time: 09:30 Assessment and Plan - Plan Impression: L3-4, L4-5 redo decompressive laminectomy, interbody arthrodesis using PEEK cage and autologous bone graft, L3-4, L4-5 instrumental fixation using transpedicular screws and rods, L3-4, L4-5 posterolateral fusion using autologous bone graft and rods. Microsurgical dissection 03/05/18 Plan: cont postoperative care pain control with [employer]EM[employer] PIPE cont PT SCDs and TEDs, Protonix appreciate critical care and pulmonology assistance awaiting transfer to floor dc planning - Dr. De La Cruz recommend SNF placement
[2018-03-07] MEDS: Gabapentin 300 MG Capsule PO SCH ×3 (13:14→18:29)
--- NOTE | 2018-03-07 18:04 | P.PN ---
Subjective Interval history: She is up and breathing better. Still on O2 5 L. pain is less. On IV Steroids. Physical Exam Vital signs: Vital Signs 03/06/18 20:00 03/06/18 20:27 03/06/18 20:30 Temperature 98.4 F Pulse Rate 85 89 Respiratory Rate 20 22 Blood Pressure 158/76 H Pulse Oximetry 88 L 91 L 03/06/18 21:02 03/06/18 23:45 03/07/18 00:00 Temperature 98.6 F Pulse Rate 83 78 Respiratory Rate 27 H 18 27 H Blood Pressure 151/76 H Pulse Oximetry 87 L 03/07/18 02:07 03/07/18 02:08 03/07/18 02:09 Temperature Pulse Rate Respiratory Rate 29 H 29 H Blood Pressure Pulse Oximetry 91 L 03/07/18 03:39 03/07/18 04:00 03/07/18 08:00 Temperature 97.5 F L 98.1 F Pulse Rate 90 84 82 Respiratory Rate 18 18 30 H Blood Pressure 163/82 H 167/88 H Pulse Oximetry 91 L 91 L 03/07/18 09:12 03/07/18 11:00 03/07/18 12:00 Temperature 97.6 F Pulse Rate 95 H 96 H 88 Respiratory Rate 24 20 24 Blood Pressure 117/77 Pulse Oximetry 89 L 92 L 03/07/18 14:30 03/07/18 16:28 Temperature 98.2 F Pulse Rate 84 81 Respiratory Rate 12 12 Blood Pressure 126/66 Pulse Oximetry 88 L Intake & Output 03/06/18 03/07/18 03/07/18 18:59 06:59 18:59 Intake Total 1150 / 1150 2680 / 2680 580 / 580 Output Total 2180 / 2180 1050 / 1050 1485 / 1485 Balance -1030 / -1030 1630 / 1630 -905 / -905 Weight 104.8 kg Intake: IV 350 / 350 2680 / 2680 100 / 100 NS Inj 1,000 ML @ 40 mls/hr IV. 480 / 480 CONT .Q24H [facility] Rx#:[id number] Azithromycin Inj 500 MG In NS 250 / 250 Inj 250 ML @ 250 mls/hr IV.SIG Q24H [facility] Rx#:[id number] Ancef Inj 2,000 MG In NS Inj 100 / 100 200 / 200 100 / 100 100 ML @ 100 mls/hr IV.SIG Q8H [facility] Rx#:[id number] Oral 700 / 700 480 / 480 Other 100 / 100 Output: Urine Amount (Catheter) 2049 1000 / 1000 1450 / 1450 Indwelling Urethral Catheter 2049 1000 / 1000 1450 / 1450 Wound Drainage 130 / 130 50 / 50 35 / 35 # 1 Medial Back Vincent 130 / 130 50 / 50 35 / 35 Other: Date of Last Bowel Movement 03/04/18 03/04/18 03/04/18 Narrative: Mild distress due to incsicional pain GENERAL: SKIN: Warm and dry. HEAD: Atraumatic. Normocephalic. EYES: Pupils equal and round. No scleral icterus. No injection or drainage. ENT: No nasal bleeding or discharge. Mucous membranes pink and moist. NECK: Trachea midline. No JVD. CARDIOVASCULAR: Regular rate and rhythm. RESPIRATORY: No accessory muscle use. few wheezes heard. Breath sounds equal bilaterally. GASTROINTESTINAL: Abdomen soft, non-tender, nondistended. Hepatic and splenic margins not palpable. MUSCULOSKELETAL: Extremities without clubbing, cyanosis, or edema. No obvious deformities. NEUROLOGICAL: Awake and alert. No obvious cranial nerve deficits. Motor grossly within normal limits. Normal speech. PSYCHIATRIC: Appropriate mood and affect; insight and judgment normal. - Urinary Catheter Management Indwelling Urethral Catheter Cath placed during this visit: yes Reason for continuing: Hourly intake/output Insertion date: 03/05/18 Insertion time: 09:30 Results - Labs CBC & Chem 7: 03/07/18 08:34 03/07/18 03:16 Laboratory Results - last 24 hr 03/07/18 03/07/18 03:16 08:34 WBC 16.4 H RBC 3.68 L Hgb 11.2 L Hct 34.4 L MCV 93.5 MCH 30.3 MCHC 32.4 RDW 14.3 Plt Count 160 MPV 8.8 Sodium 144 Potassium 4.6 Chloride 111 H Carbon Dioxide 24.5 Anion Gap 9 BUN 14 Creatinine 0.83 Estimated GFR 69 L Random Glucose 155 H Calcium 7.6 L Magnesium 2.0 Total Bilirubin 0.1 L AST 31 ALT 26 Alkaline Phosphatase 85 Total Protein 6.0 L Albumin 2.5 L - Imaging Impressions Chest X-Ray 03/07/18 06:00 CONCLUSION: Diffuse increased interstitial markings likely related to edema. Suspected linear atelectasis or consolidation at the bases. Assessment and Plan - Assessment (1) Status post lumbar laminectomy Code(s): Z98.890 - Other specified postprocedural states Status: Acute (2) Respiratory failure following trauma and surgery Code(s): J95.821 - Acute postprocedural respiratory failure Status: Acute (3) COPD exacerbation Code(s): J44.1 - Chronic obstructive pulmonary disease with (acute) exacerbation Status: Acute (4) Pulmonary fibrosis, postinflammatory Code(s): J84.10 - Pulmonary fibrosis, unspecified Status: Acute (5) NICKOLAS (obstructive sleep apnea) Code(s): G47.33 - Obstructive sleep apnea (adult) (pediatric) Status: Acute (6) Hypertension Code(s): I10 - Essential (primary) hypertension Status: Acute - Plan 1. O2 at 5 L and wean to keep sat >92 2. Duonebs neb qid. 3. Symbicort 160/4.5 mcg , 2 puffs BID 4. EZPAP with nebs qid. 5. Cont Solumedrol 40 mg BID 6. Cont Zithromax 500 mg daily x 3 7. IS at bedside q2h 8. Transfer to [facility].
[2018-03-08] MEDS: ceFAZolin Inj 2,000 MG in Sodium Chlor 0.9% Inj 100 ML IV.SIG SCH ×3 (01:00→19:57)
[2018-03-08] MEDS: HYDROmorphone PCA Inj 6 MG/30 ML PCA.VIAL PCA PRN (04:05)
[2018-03-08] MEDS: Budesonide-Formoterol 160/4.5 MCG 6 GM Inhaler INH SCH ×2 (09:01→21:01)
[2018-03-08] MEDS: Tiotropium Bromide 18 MCG/ACT Inhaler INH SCH (09:02)
[2018-03-08] MEDS: Azithromycin 250 MG Tablet PO SCH (10:14)
[2018-03-08] MEDS: amLODIPine 5 MG Tablet PO SCH (10:15)
[2018-03-08] MEDS: Gabapentin 300 MG Capsule PO SCH ×3 (10:15→18:00)
[2018-03-08] MEDS: MethylPREDNISolone Sod Succinate Inj 40 MG/ML Vial IV.PUSH SCH (10:16)
[2018-03-08] MEDS: Senna/Docusate Sodium 8.6/50 MG Tablet PO SCH ×2 (10:20→21:00)
--- NOTE | 2018-03-08 12:50 | P.PNIM ---
Subjective Interval history: f/u for SOB. patient stated she continues to feel SOB. denied any cough. no other complaints. remains afebrile. continues to have pain but controlled. Physical Exam Vital signs: Vital Signs 03/07/18 14:30 03/07/18 16:00 03/07/18 16:28 Temperature 98.2 F 98.2 F Pulse Rate 84 83 81 Respiratory Rate 12 14 12 Blood Pressure 126/66 124/68 Pulse Oximetry 88 L 87 L 03/07/18 20:00 03/07/18 20:49 03/08/18 00:00 Temperature 98.0 F 98.4 F Pulse Rate 87 89 78 Respiratory Rate 16 18 18 Blood Pressure 149/72 H 145/68 H Pulse Oximetry 93 L 94 L 03/08/18 00:52 03/08/18 01:18 03/08/18 01:30 Temperature Pulse Rate 92 H Respiratory Rate 20 16 Blood Pressure Pulse Oximetry 90 L 03/08/18 04:00 03/08/18 04:35 03/08/18 06:11 Temperature 97.4 F L Pulse Rate 89 88 Respiratory Rate 18 15 22 Blood Pressure 162/90 H Pulse Oximetry 93 L 03/08/18 08:00 03/08/18 09:40 03/08/18 11:40 Temperature 98.8 F Pulse Rate 78 88 70 Respiratory Rate 16 16 12 Blood Pressure 178/94 H Pulse Oximetry 92 L 89 L 03/08/18 12:00 Temperature 98.1 F Pulse Rate 80 Respiratory Rate 16 Blood Pressure 168/89 H Pulse Oximetry 91 L Intake & Output 03/07/18 03/08/18 03/08/18 18:59 06:59 18:59 Intake Total 580 / 580 200 / 200 Output Total 1485 / 1485 1525 / 1525 20 / 20 Balance -905 / -905 -1325 / -1325 -20 / -20 Weight 104 kg Intake: IV 100 / 100 200 / 200 Ancef Inj 2,000 MG In NS Inj 100 / 100 200 / 200 100 ML @ 100 mls/hr IV.SIG Q8H BRAN Rx#:[id number] Oral 480 / 480 Output: Urine 1525 / 1525 Urine Amount (Catheter) 1450 / 1450 Indwelling Urethral Catheter 1450 / 1450 Wound Drainage # 1 Medial Back Vincent Other: Date of Last Bowel Movement 03/04/18 03/04/18 - Constitutional no acute distress - Routine HEENT Exam Head: Present: normocephalic, atraumatic - Routine Neck Exam Present: supple - Routine Respiratory Exam Comments: B/L basilar crackles. minimal expiratory wheezing. - Routine Cardiovascular Exam Present: RRR, S1, S2 Comments: no r/m/g. - Routine Abdominal Exam Present: soft, normoactive bowel sounds Comments: no TTp. no peritoneal signs. - Routine Extremities Exam Comments: neg edema - Urinary Catheter Management Indwelling Urethral Catheter Cath placed during this visit: yes Reason for continuing: Hourly intake/output Insertion date: 03/05/18 Insertion time: 09:30 Results - Labs CBC & Chem 7: 03/07/18 08:34 03/07/18 03:16 Assessment and Plan - Plan This is a 67 y/o F who p/w elective surgery s/p post redo lumbar laminectomy who p/w acute respiratory failure with hypoxia in PACU and transfer to ICU s/p redo of lumbar laminectomy -management per primary ream. -on norco and dilaudid [employer]. acute respiratory failure -thought to be due to COPD exacerbation. CXR review showing B/L infiltrate. -patient on cefazolin and azithromycin for possible PNA. -on solumderol and duonebs. -patient does not feel she is getting better and is on 5L of oxygen. -? pulmonary edema. will get BNP and labs for today. will start lasix. COPD with acute exacerbation -clinically improved. -pulm ff. -continue with management per supervisor [place]. CHF -previous ECHO EF 50% -? CHF exacerbation. XR B/L infiltrate and B/L crackles on exam. -will get BNP. will add lasix. Coronary artery disease/Peripheral arterial disease/Tobacco abuse/Hypertension -Holding cilostazol and Plavix until cleared by Dr. De La Cruz -otherwise medication resumed. PROPH: -Bilateral lower extremity SCDs. PPI. Chemical DVT prophylaxis is contraindicated until cleared by neurosurgery
[2018-03-08 13:34] LABS: Hematocrit 36.9 % (35.0-46.0); Hemoglobin 12.2 gm/dL (11.6-15.3); Mean Corpuscular Hemoglobin 30.5 pg (27.0-34.0); Mean Corpuscular Volume 92.6 fL (80.0-100.0); Mean Platelet Volume 9.6 fL (7.0-11.0); Platelet Count 151 th/mm3 (150-450); Red Blood Count 3.98 mil/mm3 (4.00-5.30); Red Cell Distribution Width 13.9 % (11.6-17.2); White Blood Count 15.6 th/mm3 (4.0-11.0)
[2018-03-08 14:02] LABS: Anion Gap 8 meq/L (5-15); Blood Urea Nitrogen 13 mg/dL (7-18); Calcium 8.4 mg/dL (8.5-10.1); Carbon Dioxide 29.2 meq/L (21.0-32.0); Chloride 103 meq/L (98-107); Glomerular Filtration Rate Greater Than 89 mL/min (>89); Glucose,Random 115 mg/dL (74-106); Potassium 3.8 meq/L (3.5-5.1); Sodium 140 meq/L (136-145)
--- NOTE | 2018-03-08 17:14 | P.PNNS ---
Subjective Interval history: L3-4, L4-5 redo decompressive laminectomy, interbody arthrodesis using PEEK cage and autologous bone graft, L3-4, L4-5 instrumental fixation using transpedicular screws and rods, L3-4, L4-5 posterolateral fusion using autologous bone graft and rods. Microsurgical dissection 03/05/18 POD 3, seen this am during rounds, still quite painful with movement, sat up in chair yesterday only. Physical Exam Vital signs: Vital Signs 03/07/18 20:00 03/07/18 20:49 03/08/18 00:00 Temperature 98.0 F 98.4 F Pulse Rate 87 89 78 Respiratory Rate 16 18 18 Blood Pressure 149/72 H 145/68 H Pulse Oximetry 93 L 94 L 03/08/18 00:52 03/08/18 01:18 03/08/18 01:30 Temperature Pulse Rate 92 H Respiratory Rate 20 16 Blood Pressure Pulse Oximetry 90 L 03/08/18 04:00 03/08/18 04:35 03/08/18 06:11 Temperature 97.4 F L Pulse Rate 89 88 Respiratory Rate 18 15 22 Blood Pressure 162/90 H Pulse Oximetry 93 L 03/08/18 08:00 03/08/18 09:40 03/08/18 11:40 Temperature 98.8 F Pulse Rate 78 88 70 Respiratory Rate 16 16 12 Blood Pressure 178/94 H Pulse Oximetry 92 L 89 L 03/08/18 12:00 03/08/18 16:10 03/08/18 16:11 Temperature 98.1 F Pulse Rate 80 83 Respiratory Rate 16 15 Blood Pressure 168/89 H Pulse Oximetry 91 L 85 L 88 L Intake & Output 03/07/18 03/08/18 03/08/18 18:59 06:59 18:59 Intake Total 580 / 580 200 / 200 Output Total 1485 / 1485 1525 / 1525 20 / 20 Balance -905 / -905 -1325 / -1325 -20 / -20 Weight 104 kg Intake: IV 100 / 100 200 / 200 Ancef Inj 2,000 MG In NS Inj 100 / 100 200 / 200 100 ML @ 100 mls/hr IV.SIG Q8H BRAN Rx#:[id number] Oral 480 / 480 Output: Urine 1525 / 1525 Urine Amount (Catheter) 1450 / 1450 Indwelling Urethral Catheter 1450 / 1450 Wound Drainage # 1 Medial Back Vincent Other: Date of Last Bowel Movement 03/04/18 03/04/18 Narrative: Mild distress due to incsicional pain HEENT: Normocephalic, atraumatic.clear throat Eyes: Pupils equal round. Nonicteric sclera. Neck: No nodes, supple Lungs: Air entry equal but diminished bilaterally and bilateral wheezes CVS: S1, S2 normal no murmurs Skin: warm and dry, no cyanosis. Neuro: Patient is alert awake and alert , and talking well. No deficits - Urinary Catheter Management Indwelling Urethral Catheter Cath placed during this visit: yes Reason for continuing: Hourly intake/output Insertion date: 03/05/18 Insertion time: 09:30 Assessment and Plan - Plan Impression: L3-4, L4-5 redo decompressive laminectomy, interbody arthrodesis using PEEK cage and autologous bone graft, L3-4, L4-5 instrumental fixation using transpedicular screws and rods, L3-4, L4-5 posterolateral fusion using autologous bone graft and rods. Microsurgical dissection 03/05/18 Plan: [employer] MICROBIOLOGIST dc'ed, cont postoperative care cont PT SCDs and TEDs, Protonix appreciate medical and pulmonology assistance dc planning - Dr. De La Cruz recommend SNF placement, case consulted for placement dc tomorrow when arrangements made
--- NOTE | 2018-03-08 18:55 | P.PN ---
Subjective Interval history: C/O pains in back On O2 4 L. No chest pain or fever. Poor intake. CXR shows pulmonary fibrosis Physical Exam Vital signs: Vital Signs 03/07/18 20:00 03/07/18 20:49 03/08/18 00:00 Temperature 98.0 F 98.4 F Pulse Rate 87 89 78 Respiratory Rate 16 18 18 Blood Pressure 149/72 H 145/68 H Pulse Oximetry 93 L 94 L 03/08/18 00:52 03/08/18 01:18 03/08/18 01:30 Temperature Pulse Rate 92 H Respiratory Rate 20 16 Blood Pressure Pulse Oximetry 90 L 03/08/18 04:00 03/08/18 04:35 03/08/18 06:11 Temperature 97.4 F L Pulse Rate 89 88 Respiratory Rate 18 15 22 Blood Pressure 162/90 H Pulse Oximetry 93 L 03/08/18 08:00 03/08/18 09:40 03/08/18 11:40 Temperature 98.8 F Pulse Rate 78 88 70 Respiratory Rate 16 16 12 Blood Pressure 178/94 H Pulse Oximetry 92 L 89 L 03/08/18 12:00 03/08/18 16:00 03/08/18 16:10 Temperature 98.1 F 97.9 F Pulse Rate 80 89 83 Respiratory Rate 16 16 15 Blood Pressure 168/89 H 157/81 H Pulse Oximetry 91 L 95 85 L 03/08/18 16:11 Temperature Pulse Rate Respiratory Rate Blood Pressure Pulse Oximetry 88 L Intake & Output 03/07/18 03/08/18 03/08/18 18:59 06:59 18:59 Intake Total 580 / 580 200 / 200 Output Total 1485 / 1485 1525 / 1525 20 Balance -905 / -905 -1325 / -1325 -20 / -20 Weight 104 kg Intake: IV 100 / 100 200 / 200 Ancef Inj 2,000 MG In NS Inj 100 / 100 200 / 200 100 ML @ 100 mls/hr IV.SIG Q8H BRAN Rx#:[id number] Oral 480 / 480 Output: Urine 1525 / 1525 Urine Amount (Catheter) 1450 / 1450 Indwelling Urethral Catheter 1450 / 1450 Wound Drainage # 1 Medial Back Vincent Other: # Voids 2 Date of Last Bowel Movement 03/04/18 03/04/18 # Bowel Movements 1 Narrative: HEENT: Normocephalic, atraumatic.clear throat Eyes: Pupils equal round. Nonicteric sclera. Neck: No nodes, supple No JVD Lungs: Fine basal crackles and bilateral wheezes CVS: S1, S2 normal no murmurs Skin: warm and dry, no cyanosis. Neuro: Patient is alert awake and alert , and talking well. No gross deficits - Urinary Catheter Management Indwelling Urethral Catheter Cath placed during this visit: yes Reason for continuing: Hourly intake/output Insertion date: 03/05/18 Insertion time: 09:30 Results - Labs CBC & Chem 7: 03/08/18 12:35 03/08/18 12:35 Laboratory Results - last 24 hr 03/08/18 03/08/18 03/08/18 12:35 12:35 12:35 WBC 15.6 H RBC 3.98 L Hgb 12.2 Hct 36.9 MCV 92.6 MCH 30.5 MCHC 33.0 RDW 13.9 Plt Count 151 MPV 9.6 Sodium 140 Potassium 3.8 D Chloride 103 D Carbon Dioxide 29.2 Anion Gap 8 BUN 13 Creatinine 0.63 Estimated GFR Greater than 89 Random Glucose 115 H Calcium 8.4 L D B-Natriuretic Peptide 136 H Assessment and Plan - Assessment (1) Status post lumbar laminectomy Code(s): Z98.890 - Other specified postprocedural states Status: Acute (2) Respiratory failure following trauma and surgery Code(s): J95.821 - Acute postprocedural respiratory failure Status: Acute (3) COPD exacerbation Code(s): J44.1 - Chronic obstructive pulmonary disease with (acute) exacerbation Status: Acute (4) Pulmonary fibrosis, postinflammatory Code(s): J84.10 - Pulmonary fibrosis, unspecified Status: Acute (5) NICKOLAS (obstructive sleep apnea) Code(s): G47.33 - Obstructive sleep apnea (adult) (pediatric) Status: Acute (6) Hypertension Code(s): I10 - Essential (primary) hypertension Status: Acute - Plan 1. O2 at 4 L and wean to keep sat >92 2. Duonebs neb qid. 3. Symbicort 160/4.5 mcg , 2 puffs BID 4. EZPAP with nebs qid. 5. D/C Solumedrol 6. Cont Zithromax 500 mg daily x 3 7. IS at bedside q2h 8.Add Prednisone 10 mg BID
[2018-03-08] MEDS: predniSONE 10 MG Tablet PO SCH (21:00)
[2018-03-09] MEDS: ceFAZolin Inj 2,000 MG in Sodium Chlor 0.9% Inj 100 ML IV.SIG SCH ×3 (00:39→17:42)
[2018-03-09 08:29] LABS: Anion Gap 6 meq/L (5-15); Blood Urea Nitrogen 12 mg/dL (7-18); Calcium 7.9 mg/dL (8.5-10.1); Carbon Dioxide 31.4 meq/L (21.0-32.0); Chloride 105 meq/L (98-107); Glomerular Filtration Rate Greater Than 89 mL/min (>89); Glucose,Random 94 mg/dL (74-106); Potassium 3.8 meq/L (3.5-5.1); Sodium 142 meq/L (136-145)
[2018-03-09] MEDS: predniSONE 10 MG Tablet PO SCH ×2 (09:09→20:45)
[2018-03-09] MEDS: Senna/Docusate Sodium 8.6/50 MG Tablet PO SCH ×2 (09:09→20:45)
[2018-03-09] MEDS: Gabapentin 300 MG Capsule PO SCH ×3 (09:10→17:42)
[2018-03-09] MEDS: Azithromycin 250 MG Tablet PO SCH (09:11)
[2018-03-09] MEDS: amLODIPine 5 MG Tablet PO SCH (09:14)
[2018-03-09] MEDS: Tiotropium Bromide 18 MCG/ACT Inhaler INH SCH (09:15)
[2018-03-09] MEDS: Budesonide-Formoterol 160/4.5 MCG 6 GM Inhaler INH SCH ×2 (09:15→20:46)
[2018-03-09 12:42] LABS: Baso % (Auto) 0.2 % (0.0-2.0); Hematocrit 36.6 % (35.0-46.0); Lymph # (Auto) 1.2 th/mm3 (1.0-4.8); Mean Corpuscular HGB Conc 32.7 % (32.0-36.0); Mean Corpuscular Hemoglobin 30.4 pg (27.0-34.0); Mean Corpuscular Volume 92.7 fL (80.0-100.0); Mean Platelet Volume 9.5 fL (7.0-11.0); Mono # (Auto) 1.1 th/mm3 (0.0-0.9); Mono % (Auto) 7.3 % (0.0-8.0); Neut # (Auto) 12.6 th/mm3 (1.8-7.7); Neut % (Auto) 84.5 % (16.0-70.0); Platelet Count 191 th/mm3 (150-450); Red Blood Count 3.95 mil/mm3 (4.00-5.30); Red Cell Distribution Width 14.4 % (11.6-17.2); White Blood Count 14.9 th/mm3 (4.0-11.0)
--- NOTE | 2018-03-09 14:27 | P.PNNS ---
Subjective Interval history: pain improved Physical Exam Vital signs: Vital Signs 03/08/18 16:00 03/08/18 16:10 03/08/18 16:11 Temperature 97.9 F Pulse Rate 89 83 Respiratory Rate 16 15 Blood Pressure 157/81 H Pulse Oximetry 95 85 L 88 L 03/08/18 20:00 03/08/18 21:15 03/09/18 00:00 Temperature 98.3 F 98.4 F Pulse Rate 89 88 82 Respiratory Rate 20 16 20 Blood Pressure 136/85 145/83 H Pulse Oximetry 93 L 92 L 94 L 03/09/18 00:58 03/09/18 04:00 03/09/18 08:00 Temperature 98.0 F 98.4 F Pulse Rate 86 80 86 Respiratory Rate 16 22 16 Blood Pressure 136/70 152/86 H Pulse Oximetry 94 L 90 L 03/09/18 08:04 03/09/18 12:51 03/09/18 12:56 Temperature Pulse Rate 80 95 H Respiratory Rate 22 18 20 Blood Pressure Pulse Oximetry 94 L Intake & Output 03/08/18 03/09/18 03/09/18 18:59 06:59 18:59 Intake Total 100 / 100 780 / 780 Output Total 20 / 20 Balance 80 / 80 780 / 780 Intake: IV 100 / 100 200 / 200 Ancef Inj 2,000 MG In NS Inj 100 / 100 200 / 200 100 ML @ 100 mls/hr IV.SIG Q8H BRAN Rx#:[id number] Oral 580 / 580 Output: Wound Drainage 20 / 20 # 1 Medial Back Vincent 20 / 20 Other: # Voids 2 3 Date of Last Bowel Movement 03/04/18 03/04/18 # Bowel Movements 1 1 Narrative: E4 Aox3 FCx4 5/5 strength in the UEs and LEs Incision closed, drainage on dressing - Urinary Catheter Management Indwelling Urethral Catheter Cath placed during this visit: yes Reason for continuing: Hourly intake/output Insertion date: 03/05/18 Insertion time: 09:30 Assessment and Plan - Plan 67 yo POD 4 s/p L3-5 lami/fusion Plan: -oral pain meds -normalize: ok to be OOB with PT -appreciate medical and pulmonology assistance -pending SNF placement
--- NOTE | 2018-03-09 16:37 | P.PN ---
Subjective Interval history: Follow up on patient with AECOPD, CHF, s/p redo lumbar laminectomy. Patient seen and examined. Patient states her breathing is unchanged. She remains on 5LNC. She does not use oxygen at home. She complains of abdominal pain and bloating. She reports good BM earlier today. She denies any dysuria. She reports some nausea but no vomiting. She reports loss of appetite. She states she has problems with her stomach chronically and reports hx of colitis but states the is worse. She denies any fever or chills. She denies any chest pain. Physical Exam Vital signs: Vital Signs 03/08/18 20:00 03/08/18 21:15 03/09/18 00:00 Temperature 98.3 F 98.4 F Pulse Rate 89 88 82 Respiratory Rate 20 16 20 Blood Pressure 136/85 145/83 H Pulse Oximetry 93 L 92 L 94 L 03/09/18 00:58 03/09/18 04:00 03/09/18 08:00 Temperature 98.0 F 98.4 F Pulse Rate 86 80 86 Respiratory Rate 16 22 16 Blood Pressure 136/70 152/86 H Pulse Oximetry 94 L 90 L 03/09/18 08:04 03/09/18 12:00 03/09/18 12:51 Temperature 98.8 F Pulse Rate 80 87 Respiratory Rate 22 20 18 Blood Pressure 136/81 Pulse Oximetry 94 L 91 L 03/09/18 12:56 Temperature Pulse Rate 95 H Respiratory Rate 20 Blood Pressure Pulse Oximetry Intake & Output 03/08/18 03/09/18 03/09/18 18:59 06:59 18:59 Intake Total 100 / 100 780 / 780 Output Total 20 Balance 80 / 80 780 / 780 Intake: IV 100 / 100 200 / 200 Ancef Inj 2,000 MG In NS Inj 100 / 100 200 / 200 100 ML @ 100 mls/hr IV.SIG Q8H BRAN Rx#:[id number] Oral 580 / 580 Output: Wound Drainage # 1 Medial Back Vincent Other: # Voids 2 3 Date of Last Bowel Movement 03/04/18 03/04/18 # Bowel Movements 1 1 Narrative: GENERAL: WDWN obese female patient, INAD. Awake and alert. Family at bedside. SKIN: Warm and dry. No generalized rash. HEAD: Atraumatic. Normocephalic. EYES: Pupils equal and round. No scleral icterus. No injection or drainage. ENT: No nasal bleeding or discharge. Mucous membranes pink and moist. NECK: Trachea midline. CARDIOVASCULAR: Regular rate and rhythm. RESPIRATORY: No accessory muscle use. Fair air entry. +Bibasilar crackles noted on exam. GASTROINTESTINAL: Abdomen soft, tenderness to palpation over RUE and epigastric area. +distended. Hypoactive BS. MUSCULOSKELETAL: Extremities without clubbing, cyanosis, or edema. No obvious deformities. NEUROLOGICAL: Awake and alert. No obvious cranial nerve deficits. Motor grossly within normal limits. No focal neurologic finding appreciated. Normal speech. PSYCHIATRIC: Appropriate mood and affect; insight and judgment normal. - Urinary Catheter Management Indwelling Urethral Catheter Cath placed during this visit: yes Reason for continuing: Hourly intake/output Insertion date: 03/05/18 Insertion time: 09:30 Results - Labs CBC & Chem 7: 03/09/18 11:25 03/09/18 07:06 Laboratory Results - last 24 hr 03/09/18 03/09/18 03/09/18 06:53 07:06 11:25 WBC 14.9 H RBC 3.95 L Hgb 12.0 Hct 36.6 MCV 92.7 MCH 30.4 MCHC 32.7 RDW 14.4 Plt Count 191 MPV 9.5 Neut % (Auto) 84.5 H Lymph % (Auto) 8.0 L Y[place] % (Auto) 7.3 Eos % (Auto) 0.0 Baso % (Auto) 0.2 Neut # (Auto) 12.6 H Lymph # (Auto) 1.2 Yell # (Auto) 1.1 H Eos # (Auto) 0.0 Baso # (Auto) 0.0 WBC Differential . Differential Comment Auto diff final Sodium 142 Potassium 3.8 Chloride 105 Carbon Dioxide 31.4 Anion Gap 6 BUN 12 Creatinine 0.47 L Estimated GFR Greater than 89 POC Glucose 102 Random Glucose 94 Calcium 7.9 L 03/09/18 13:30 WBC RBC Hgb Hct MCV MCH MCHC RDW Plt Count MPV Neut % (Auto) Lymph % (Auto) Yell % (Auto) Eos % (Auto) Baso % (Auto) Neut # (Auto) Lymph # (Auto) Yell # (Auto) Eos # (Auto) Baso # (Auto) WBC Differential Differential Comment Sodium Potassium Chloride Carbon Dioxide Anion Gap BUN Creatinine Estimated GFR POC Glucose 126 H Random Glucose Calcium Assessment and Plan - Plan This is a 67 y/o F who p/w elective surgery s/p post redo lumbar laminectomy who p/w acute respiratory failure with hypoxia in PACU and transfer to ICU s/p redo of lumbar laminectomy -management per primary ream. -on Percocet acute respiratory failure thought to be due to COPD exacerbation. CXR review showing B/L infiltrate. -possible PNA. -Pulmonary following. continue on duonebs. Solumedrol d/c'd by pulm. Now on Prednisone 10mg BID. Continue on Azithromycin. On Cefazolin as well, started by Dr. De La Cruz. -patient does not feel she is getting better and is on 5L of oxygen. COPD with acute exacerbation -clinically improved. -continue on Spiriva and Symbicort -continue with management per airport operations crew member. CHF previous ECHO EF 50% CXR 03/07 Diffuse increased interstitial markings likely related to edema. Suspected linear atelectasis or consolidation at the bases -? CHF exacerbation. Bibasilar crackles on exam. BNP 136, BMI 38.2, possibly contributing to falsely low level -Continue on Lasix. Monitor electrolytes. RUQ and epigastric pain and bloating, nausea, poor appetite hx of colitis +BM -continue on Pericolace -obtain gallbladder US and KUB -add hepatic function panel and lipase to labs -monitor Coronary artery disease/Peripheral arterial disease/Tobacco abuse/Hypertension -Holding cilostazol and Plavix until cleared by Dr. De La Cruz -otherwise medication resumed. GI prophylaxis -PPI DVT prophylaxis -BLE SCDs. Chemical DVT prophylaxis is contraindicated until cleared by neurosurgery. Code Status: FULL Discussed Condition With: patient, family member, Dr. Lyon Discharge Planning: discharge plan per primary team
--- NOTE | 2018-03-09 17:04 | XR ---
EXAM DATE: 03/09/2018 4:59 PM EDT AGE/SEX: 67 years / Female INDICATIONS: Right side abdomen pain. CLINICAL DATA: This is the patient's initial encounter. Patient reports that signs and symptoms have been present for 1 day and indicates a pain score of 4/10. MEDICAL/SURGICAL HISTORY: . Asthma. Chronic obstructive pulmonary disease. . Lumbar madhuri lami nectomy COMPARISON: [facility], CHEST 1V SINGLE AP, 03/07/2018. . FINDINGS: Bowel gas pattern is abnormal with multiple loops of significantly distended bowel measuring up to 1 3 cm in width. The mucosal pattern is nonspecific and cannot differentiate between dilated loops of s mall and large bowel. There are some patchy infiltrates in the left lower lung with out loss of delin eation left hemidiaphragm. Posterior spinal instrumentation hardware in the lower lumbar region. CONCLUSION: Markedly dilated loops of bowel measuring up to 13 cm. Electronically signed by: Danis Gómez MD 03/09/2018 5:03 PM EDT
--- NOTE | 2018-03-09 17:11 | P.PN ---
Subjective Interval history: Has abdominal pain and distention. No vomiting.On O2 5 L. Cough with white sputum. Physical Exam Vital signs: Vital Signs 03/08/18 20:00 03/08/18 21:15 03/09/18 00:00 Temperature 98.3 F 98.4 F Pulse Rate 89 88 82 Respiratory Rate 20 16 20 Blood Pressure 136/85 145/83 H Pulse Oximetry 93 L 92 L 94 L 03/09/18 00:58 03/09/18 04:00 03/09/18 08:00 Temperature 98.0 F 98.4 F Pulse Rate 86 80 86 Respiratory Rate 16 22 16 Blood Pressure 136/70 152/86 H Pulse Oximetry 94 L 90 L 03/09/18 08:04 03/09/18 12:00 03/09/18 12:51 Temperature 98.8 F Pulse Rate 80 87 Respiratory Rate 22 20 18 Blood Pressure 136/81 Pulse Oximetry 94 L 91 L 03/09/18 12:56 03/09/18 16:21 Temperature Pulse Rate 95 H 95 H Respiratory Rate 20 20 Blood Pressure Pulse Oximetry Intake & Output 03/08/18 03/09/18 03/09/18 18:59 06:59 18:59 Intake Total 100 / 100 780 / 780 Output Total 20 / 20 Balance 80 / 80 780 / 780 Intake: IV 100 / 100 200 / 200 Ancef Inj 2,000 MG In NS Inj 100 / 100 200 / 200 100 ML @ 100 mls/hr IV.SIG Q8H BRAN Rx#:[id number] Oral 580 / 580 Output: Wound Drainage 20 / 20 # 1 Medial Back Vincent 20 / 20 Other: # Voids 2 3 Date of Last Bowel Movement 03/04/18 03/04/18 # Bowel Movements 1 1 Narrative: GENERAL: Elderly obese female patient, in no distress. Awake and alert. SKIN: Warm and dry. No generalized rash. HEAD: Atraumatic. Normocephalic. EYES: Pupils equal and round. No scleral icterus. No injection or drainage. ENT: No nasal bleeding or discharge. Mucous membranes pink and moist. NECK: Trachea midline. CARDIOVASCULAR: Regular rate and rhythm. RESPIRATORY: No accessory muscle use. distant breath sounds.+ Bibasilar crackles noted on exam. GASTROINTESTINAL: Abdomen soft, tenderness to palpation over RUE and epigastric area. + distended. Hypoactive BS. MUSCULOSKELETAL: Extremities without clubbing, cyanosis, or edema. No obvious deformities. NEUROLOGICAL: Awake and alert. No obvious cranial nerve deficits. Motor grossly within normal limits. No focal neurologic finding and Normal speech. PSYCHIATRIC: Appropriate mood and affect; insight and judgment normal. - Urinary Catheter Management Indwelling Urethral Catheter Cath placed during this visit: yes Reason for continuing: Hourly intake/output Insertion date: 03/05/18 Insertion time: 09:30 Results - Labs CBC & Chem 7: 03/09/18 11:25 03/09/18 07:06 Laboratory Results - last 24 hr 03/09/18 03/09/18 03/09/18 06:53 07:06 11:25 WBC 14.9 H RBC 3.95 L Hgb 12.0 Hct 36.6 MCV 92.7 MCH 30.4 MCHC 32.7 RDW 14.4 Plt Count 191 MPV 9.5 Neut % (Auto) 84.5 H Lymph % (Auto) 8.0 L [place] % (Auto) 7.3 Eos % (Auto) 0.0 Baso % (Auto) 0.2 Neut # (Auto) 12.6 H Lymph # (Auto) 1.2 [place] # (Auto) 1.1 H Eos # (Auto) 0.0 Baso # (Auto) 0.0 WBC Differential . Differential Comment Auto diff final Sodium 142 Potassium 3.8 Chloride 105 Carbon Dioxide 31.4 Anion Gap 6 BUN 12 Creatinine 0.47 L Estimated GFR Greater than 89 POC Glucose 102 Random Glucose 94 Calcium 7.9 L 03/09/18 13:30 WBC RBC Hgb Hct MCV MCH MCHC RDW Plt Count MPV Neut % (Auto) Lymph % (Auto) [place] % (Auto) Eos % (Auto) Baso % (Auto) Neut # (Auto) Lymph # (Auto) [place] # (Auto) Eos # (Auto) Baso # (Auto) WBC Differential Differential Comment Sodium Potassium Chloride Carbon Dioxide Anion Gap BUN Creatinine Estimated GFR POC Glucose 126 H Random Glucose Calcium - Imaging Impressions Abdomen X-Ray 03/09/18 00:00 CONCLUSION: Markedly dilated loops of bowel measuring up to 13 cm. Assessment and Plan - Assessment (1) Status post lumbar laminectomy Code(s): Z98.890 - Other specified postprocedural states Status: Acute (2) Respiratory failure following trauma and surgery Code(s): J95.821 - Acute postprocedural respiratory failure Status: Acute (3) COPD exacerbation Code(s): J44.1 - Chronic obstructive pulmonary disease with (acute) exacerbation Status: Acute (4) Pulmonary fibrosis, postinflammatory Code(s): J84.10 - Pulmonary fibrosis, unspecified Status: Acute (5) NICKOLAS (obstructive sleep apnea) Code(s): G47.33 - Obstructive sleep apnea (adult) (pediatric) Status: Acute (6) Hypertension Code(s): I10 - Essential (primary) hypertension Status: Acute - Plan 1. O2 at 4 L and wean to keep sat >92 2. Duonebs neb qid. 3. Symbicort 160/4.5 mcg , 2 puffs BID 4. EZPAP with nebs qid. 5. Decompress abdomen. 6. Cont Zithromax 500 mg daily x 2 7. IS at bedside q2h 8. Prednisone 10 mg BID
[2018-03-09 19:16] LABS: Albumin 2.4 g/dL (3.4-5.0)
[2018-03-09 19:18] LABS: Total Protein 5.9 g/dL (6.4-8.2)
[2018-03-10] MEDS: ceFAZolin Inj 2,000 MG in Sodium Chlor 0.9% Inj 100 ML IV.SIG SCH ×3 (01:04→16:02)
--- NOTE | 2018-03-10 08:36 | US ---
EXAM DATE: 03/10/2018 8:29 AM EDT AGE/SEX: 67 years / Female INDICATIONS: Right upper quadrant pain. Nausea. CLINICAL DATA: This is the patient's initial encounter. Patient reports that signs and symptoms have been present for 1 day and indicates a pain score of 7/10. MEDICAL/SURGICAL HISTORY: Congestive heart failure. Chronic obstructive pulmonary disease. Ga stroesophageal reflux disease. High cholesterol. Hypertension. Hysterectomy. COMPARISON: [facility], CT ABDOMEN AND PELVIS W AND W/O CONTRAST, 05/16/2012. . MEASUREMENTS: Liver:__ 14.5 cm. Common Bile Duct:__ 5mm. FINDINGS: Liver: Normal echotexture without focal lesion or ductal dilatation. Portal Vein: Hepatopedal flow seen in portal vein. Common Duct: No intraluminal mass or stone visualized. Gallbladder: Gallbladder contains multiple shadowing mobile stones. No significant wall thickening o r pericholecystic fluid is present. Gallbladder is not significantly distended. There is no perichole cystic fluid. Pancreas: Not adequately visualized. Right Kidney: Normal echotexture and cortical thickness. No mass or hydronephrosis. Other: None. CONCLUSION: 1. Cholelithiasis. No other definite findings are present to indicate acute gallbladder obstruction or inflammation. Given the clinical symptoms, consider correlating with hepatobiliary nuclear medicin e examination to evaluate for cystic duct patency. 2. The pancreas was not adequately visualized. Remainder of the examination is within normal limits. Electronically signed by: Ben Blood MD 03/10/2018 8:35 AM EDT
[2018-03-10] MEDS: Azithromycin 250 MG Tablet PO SCH (08:38)
[2018-03-10] MEDS: Senna/Docusate Sodium 8.6/50 MG Tablet PO SCH ×2 (08:38→20:50)
[2018-03-10] MEDS: Gabapentin 300 MG Capsule PO SCH ×3 (08:39→18:06)
[2018-03-10] MEDS: predniSONE 10 MG Tablet PO SCH ×2 (08:39→20:50)
[2018-03-10] MEDS: amLODIPine 5 MG Tablet PO SCH (08:40)
[2018-03-10] MEDS: Tiotropium Bromide 18 MCG/ACT Inhaler INH SCH (08:41)
[2018-03-10] MEDS: Budesonide-Formoterol 160/4.5 MCG 6 GM Inhaler INH SCH ×2 (08:41→22:16)
[2018-03-10] MEDS ORDERED: Sod Phosphate/Sod Biphosphate (Adult) Enema 133 ML Bottle RECTAL PRN (09:18)
--- NOTE | 2018-03-10 09:20 | P.PN ---
Subjective Interval history: Follow up on patient with AECOPD, CHF, s/p redo lumbar laminectomy. Patient seen and examined. She is not a good historian and appears irritated by my questions. Patient continues to complain of diffuse abdominal pain worse on the right side. She does not have an appetite. No nausea or vomiting. No chest pain. She states her breathing is unchanged. She denies any sputum production. She reports small BM yesterday morning. She is not passing flatus today. Physical Exam Vital signs: Vital Signs 03/09/18 12:00 03/09/18 12:51 03/09/18 12:56 Temperature 98.8 F Pulse Rate 87 95 H Respiratory Rate 20 18 20 Blood Pressure 136/81 Pulse Oximetry 91 L 03/09/18 16:00 03/09/18 16:21 03/09/18 20:00 Temperature 98.8 F 98.6 F Pulse Rate 89 95 H 94 H Respiratory Rate 20 20 20 Blood Pressure 126/77 150/90 H Pulse Oximetry 95 93 L 03/09/18 20:02 03/09/18 23:39 03/10/18 00:00 Temperature 98.5 F Pulse Rate 94 H 75 92 H Respiratory Rate 24 24 16 Blood Pressure 135/68 Pulse Oximetry 93 L 03/10/18 03:58 03/10/18 04:00 03/10/18 07:30 Temperature 98.4 F Pulse Rate 88 93 H Respiratory Rate 20 17 17 Blood Pressure 141/73 H Pulse Oximetry 93 L 03/10/18 07:55 Temperature 98.4 F Pulse Rate 89 Respiratory Rate 16 Blood Pressure 114/73 Pulse Oximetry 93 L Intake & Output 03/09/18 03/10/18 03/10/18 18:59 06:59 18:59 Intake Total 100 / 100 200 / 200 Balance 100 / 100 200 / 200 Weight 104 kg Intake: IV 100 / 100 200 / 200 Ancef Inj 2,000 MG In NS Inj 100 / 100 200 / 200 100 ML @ 100 mls/hr IV.SIG Q8H [facility] Rx#:[id number] Other: # Voids 2 Date of Last Bowel Movement 03/04/18 03/09/18 03/09/18 Narrative: GENERAL: Elderly obese female patient, INAD. Awake and alert. at the bedside. SKIN: Warm and dry. No generalized rash. HEENT: Atraumatic. Normocephalic. Pupils equal and round. No scleral icterus. No injection or drainage. No nasal bleeding or discharge. Mucous membranes pink and moist. NECK: Trachea midline. CARDIOVASCULAR: Regular rate and rhythm. RESPIRATORY: No accessory muscle use. distant breath sounds.+ Bibasilar crackles noted on exam. GASTROINTESTINAL: Abdomen soft, diffusely tender to palpation moreso over right upper and lower quadrants. + distended. Hypoactive BS. MUSCULOSKELETAL: Extremities without clubbing, cyanosis, or edema. No obvious deformities. NEUROLOGICAL: Awake and alert. No obvious cranial nerve deficits. Motor grossly within normal limits. No focal neurologic finding and Normal speech. PSYCHIATRIC: Irritable. - Urinary Catheter Management Indwelling Urethral Catheter Cath placed during this visit: yes Reason for continuing: Hourly intake/output Insertion date: 03/05/18 Insertion time: 09:30 Results - Labs CBC & Chem 7: 03/09/18 11:25 03/09/18 07:06 Laboratory Results - last 24 hr 03/09/18 03/09/18 03/09/18 07:06 11:25 13:30 WBC 14.9 H RBC 3.95 L Hgb 12.0 Hct 36.6 MCV 92.7 MCH 30.4 MCHC 32.7 RDW 14.4 Plt Count 191 MPV 9.5 Neut % (Auto) 84.5 H Lymph % (Auto) 8.0 L Erath % (Auto) 7.3 Eos % (Auto) 0.0 Baso % (Auto) 0.2 Neut # (Auto) 12.6 H Lymph # (Auto) 1.2 Erath # (Auto) 1.1 H Eos # (Auto) 0.0 Baso # (Auto) 0.0 WBC Differential . Differential Comment Auto diff final POC Glucose 126 H Total Bilirubin 0.3 Direct Bilirubin 0.1 Indirect Bilirubin 0.2 AST 24 ALT 25 Alkaline Phosphatase 78 Total Protein 5.9 L Albumin 2.4 L Lipase 56 L - Imaging Impressions Abdomen X-Ray 03/09/18 00:00 CONCLUSION: Markedly dilated loops of bowel measuring up to 13 cm. Gallbladder Ultrasound 03/10/18 00:00 CONCLUSION: 1. Cholelithiasis. No other definite findings are present to indicate acute gallbladder obstruction or inflammation. Given the clinical symptoms, consider correlating with hepatobiliary nuclear medicine examination to evaluate for cystic duct patency. 2. The pancreas was not adequately visualized. Remainder of the examination is within normal limits. Assessment and Plan - Plan This is a 67 y/o F who p/w elective surgery s/p post redo lumbar laminectomy who p/w acute respiratory failure with hypoxia in PACU and transfer to ICU s/p redo of lumbar laminectomy -management per primary ream. -on Percocet acute respiratory failure thought to be due to COPD exacerbation. CXR review showing B/L infiltrate. -possible PNA. -Pulmonary following. continue on duonebs. Solumedrol d/c'd by pulm. Now on Prednisone 10mg BID. Continue on Azithromycin. On Cefazolin as well, started by Dr. De La Cruz. COPD with acute exacerbation -clinically improved. -continue on Spiriva and Symbicort -continue with management per aerospace project manager. Wean oxygen as tolerated. -IS at bedside, encourage hourly use CHF previous ECHO EF 50% CXR 03/07 Diffuse increased interstitial markings likely related to edema. Suspected linear atelectasis or consolidation at the bases -? CHF exacerbation. Bibasilar crackles on exam. BNP 136, BMI 38.2, possibly contributing to falsely low level -Continue on Lasix. Monitor electrolytes. Repeat BMP in am. RUQ and epigastric pain and bloating, nausea, poor appetite, suspect secondary to constipation/ileus No vomiting LFTs WNL Lipase 56 +BM, patient now stating she had a very small BM yesterday morning -continue on Pericolace BID -KUB shows markedly dilated loops of bowel measuring up to 13cm, images reviewed by ar -Gallbladder US shows cholelithiasis but no acute obstruction or inflammation, images reviewed -change to clear liquid diet -add Miralax po BID scheduled and Dulcolax supp x 1 now. Possible Fleets later today if no improvement. -encourage mobilization -monitor Coronary artery disease/Peripheral arterial disease/Tobacco abuse/Hypertension -Pletal resumed by Dr. De La Cruz -otherwise medication resumed, continue GI prophylaxis -PPI DVT prophylaxis -BLE SCDs. Chemical DVT prophylaxis is contraindicated until cleared by neurosurgery. Code Status: FULL Discussed Condition With: patient, nursing staff, Dr. Lyon Discharge Planning: discharge plan per primary team
[2018-03-10] MEDS ORDERED: Bisacodyl 10 MG Supp RECTAL ONE (09:30)
--- NOTE | 2018-03-10 09:54 | P.PNNS ---
Subjective Interval history: Patient reports improving back pain and dyspnea/abd pain. +BM yesterday. Physical Exam Vital signs: Vital Signs 03/09/18 12:00 03/09/18 12:51 03/09/18 12:56 Temperature 98.8 F Pulse Rate 87 95 H Respiratory Rate 20 18 20 Blood Pressure 136/81 Pulse Oximetry 91 L 03/09/18 16:00 03/09/18 16:21 03/09/18 20:00 Temperature 98.8 F 98.6 F Pulse Rate 89 95 H 94 H Respiratory Rate 20 20 20 Blood Pressure 126/77 150/90 H Pulse Oximetry 95 93 L 03/09/18 20:02 03/09/18 23:39 03/10/18 00:00 Temperature 98.5 F Pulse Rate 94 H 75 92 H Respiratory Rate 24 24 16 Blood Pressure 135/68 Pulse Oximetry 93 L 03/10/18 03:58 03/10/18 04:00 03/10/18 07:30 Temperature 98.4 F Pulse Rate 88 93 H Respiratory Rate 20 17 17 Blood Pressure 141/73 H Pulse Oximetry 93 L 03/10/18 07:55 03/10/18 09:09 Temperature 98.4 F Pulse Rate 89 Respiratory Rate 16 18 Blood Pressure 114/73 Pulse Oximetry 93 L Intake & Output 03/09/18 03/10/18 03/10/18 18:59 06:59 18:59 Intake Total 100 / 100 200 / 200 Balance 100 / 100 200 / 200 Weight 104 kg Intake: IV 100 / 100 200 / 200 Ancef Inj 2,000 MG In NS Inj 100 / 100 200 / 200 100 ML @ 100 mls/hr IV.SIG Q8H [facility] Rx#:[id number] Other: # Voids 2 Date of Last Bowel Movement 03/04/18 03/09/18 03/09/18 Narrative: E4 AOx3 FC x4 5/5 strength in the UE and LEs incision, CDI - Urinary Catheter Management Indwelling Urethral Catheter Cath placed during this visit: yes Reason for continuing: Hourly intake/output Insertion date: 03/05/18 Insertion time: 09:30 Assessment and Plan - Plan 67 yo POD 5 s/p L3-5 lami/fusion with hospitalization c/b COPD/CHF exacerbation post op lumbar fusion -Pain control: continue oral prn pain meds -normalize: ok to be OOB with Physical therapy -CLARIBEL removed COPD/CHF exacerbation -appreciate pulm and medicine recommendations -antibiotic regiment per medicine service for possible PNA (currently on cefazolin and azithromycin) -aggressive pulmonary toilet: OOB, duonebs, monitor IOs, continue lasix -prednisone 10 BID per pulmonary, recommend dc once able due to post op fusion patient Abd pain -improving -KUB with ileus -continue BM regiment -Clear liquid diet till patient tolerates regular diet -u/s with cholelithiasis Disposition: pending rehab placement
[2018-03-10] MEDS: Polyethylene Glycol 3350 17 GM Packet PO SCH ×2 (10:21→20:50)
--- NOTE | 2018-03-10 16:38 | P.PN ---
Subjective Interval history: Has some Abdominal distention. On O2 4 L. C/O pain in RUQ. Gallstones noted on US of chest. No fever. Physical Exam Vital signs: Vital Signs 03/09/18 20:00 03/09/18 20:02 03/09/18 23:39 Temperature 98.6 F Pulse Rate 94 H 94 H 75 Respiratory Rate 20 24 24 Blood Pressure 150/90 H Pulse Oximetry 93 L 03/10/18 00:00 03/10/18 03:58 03/10/18 04:00 Temperature 98.5 F 98.4 F Pulse Rate 92 H 88 93 H Respiratory Rate 16 20 17 Blood Pressure 135/68 141/73 H Pulse Oximetry 93 L 93 L 03/10/18 07:30 03/10/18 07:55 03/10/18 09:09 Temperature 98.4 F Pulse Rate 89 Respiratory Rate 17 16 18 Blood Pressure 114/73 Pulse Oximetry 93 L 03/10/18 11:02 03/10/18 12:00 03/10/18 12:55 Temperature 97.5 F L Pulse Rate 106 H Respiratory Rate 18 18 Blood Pressure 110/67 Pulse Oximetry 93 L 90 L Intake & Output 03/09/18 03/10/18 03/10/18 18:59 06:59 18:59 Intake Total 100 / 100 200 / 200 100 / 100 Balance 100 / 100 200 / 200 100 / 100 Weight 104 kg Intake: IV 100 / 100 200 / 200 100 / 100 Ancef Inj 2,000 MG In NS Inj 100 / 100 200 / 200 100 / 100 100 ML @ 100 mls/hr IV.SIG Q8H [facility] Rx#:[id number] Other: # Voids 2 Date of Last Bowel Movement 03/04/18 03/09/18 03/10/18 # Bowel Movements 2 Narrative: GENERAL: Elderly obese female patient, no distress. Awake and alert. SKIN: Warm and dry. HEENT: Atraumatic. Normocephalic. Pupils equal and round. No scleral icterus. No injection or drainage. No nasal bleeding or discharge. Mucous membranes pink and moist. NECK: Trachea midline. CARDIOVASCULAR: Regular rate and rhythm. No Murmur. RESPIRATORY: No accessory muscle use. distant breath sounds.+ Bibasilar crackles noted GASTROINTESTINAL: Abdomen soft, diffusely tender to palpation more so over right upper and lower quadrants. + distended. Hypoactive BS. MUSCULOSKELETAL: Extremities without clubbing, cyanosis, or edema. No obvious deformities. NEUROLOGICAL: Awake and alert. No obvious cranial nerve deficits. Motor grossly within normal limits. No focal neurologic finding and Normal speech. PSYCHIATRIC: Calm and cooperative - Urinary Catheter Management Indwelling Urethral Catheter Cath placed during this visit: yes Reason for continuing: Hourly intake/output Insertion date: 03/05/18 Insertion time: 09:30 Results - Labs CBC & Chem 7: 03/09/18 11:25 03/09/18 07:06 Laboratory Results - last 24 hr 03/09/18 07:06 Total Bilirubin 0.3 Direct Bilirubin 0.1 Indirect Bilirubin 0.2 AST 24 ALT 25 Alkaline Phosphatase 78 Total Protein 5.9 L Albumin 2.4 L Lipase 56 L - Imaging Impressions Abdomen X-Ray 03/09/18 00:00 CONCLUSION: Markedly dilated loops of bowel measuring up to 13 cm. Gallbladder Ultrasound 03/10/18 00:00 CONCLUSION: 1. Cholelithiasis. No other definite findings are present to indicate acute gallbladder obstruction or inflammation. Given the clinical symptoms, consider correlating with hepatobiliary nuclear medicine examination to evaluate for cystic duct patency. 2. The pancreas was not adequately visualized. Remainder of the examination is within normal limits. Assessment and Plan - Assessment (1) Status post lumbar laminectomy Code(s): Z98.890 - Other specified postprocedural states Status: Acute (2) Respiratory failure following trauma and surgery Code(s): J95.821 - Acute postprocedural respiratory failure Status: Acute (3) COPD exacerbation Code(s): J44.1 - Chronic obstructive pulmonary disease with (acute) exacerbation Status: Acute (4) Pulmonary fibrosis, postinflammatory Code(s): J84.10 - Pulmonary fibrosis, unspecified Status: Acute (5) NICKOLAS (obstructive sleep apnea) Code(s): G47.33 - Obstructive sleep apnea (adult) (pediatric) Status: Acute (6) Hypertension Code(s): I10 - Essential (primary) hypertension Status: Acute - Plan 1. O2 at 4 L and wean to keep sat >92 2. Cont Duonebs neb qid. 3. Symbicort 160/4.5 mcg , 2 puffs BID 4. EZPAP with nebs qid. 5 Laxative for Abdominal distention 6. Zithromax 500 mg daily x 2 7. IS at bedside q2h 8. Prednisone 10 mg daily.
[2018-03-11] MEDS: ceFAZolin Inj 2,000 MG in Sodium Chlor 0.9% Inj 100 ML IV.SIG SCH ×2 (04:11→09:00)
[2018-03-11 06:19] LABS: Calcium 8.3 mg/dL (8.5-10.1); Carbon Dioxide 30.3 meq/L (21.0-32.0); Potassium 3.6 meq/L (3.5-5.1)
--- NOTE | 2018-03-11 06:43 | XR ---
EXAM DATE: 03/11/2018 6:39 AM EDT AGE/SEX: 67 years / Female INDICATIONS: Congestion, cough, short of breath, evaluate infiltrate CLINICAL DATA: This is the patient's subsequent encounter. Patient reports that signs and symptoms h ave been present for 4 - 6 days and indicates a pain score of 10/10. MEDICAL/SURGICAL HISTORY: Chronic obstructive pulmonary disease. Asthma. . lamine[place] [facility] [place]. . FINDINGS: A single AP view of the chest demonstrates the lungs to be symmetrically aerated without evidence of mass, infiltrate or effusion. Minimal linear atelectasis within the left base. The cardiomediastinal contours are unremarkable. Osseous structures are intact. CONCLUSION: No acute cardiopulmonary disease. Electronically signed by: Danis Lazcano MD 03/11/2018 6:42 AM EDT
[2018-03-11] MEDS: amLODIPine 5 MG Tablet PO SCH (08:48)
[2018-03-11] MEDS: predniSONE 10 MG Tablet PO SCH (08:48)
[2018-03-11] MEDS: Senna/Docusate Sodium 8.6/50 MG Tablet PO SCH (08:48)
[2018-03-11] MEDS: Gabapentin 300 MG Capsule PO SCH ×2 (08:48→12:03)
[2018-03-11] MEDS: Polyethylene Glycol 3350 17 GM Packet PO SCH (08:49)
[2018-03-11] MEDS: Budesonide-Formoterol 160/4.5 MCG 6 GM Inhaler INH SCH (08:58)
[2018-03-11] MEDS: Tiotropium Bromide 18 MCG/ACT Inhaler INH SCH (09:19)
--- NOTE | 2018-03-11 09:52 | P.DS ---
<Frank De La Cruz - Last Filed: 03/13/18 12:23> Date of admission: 03/05/18 06:22 Primary care physician: Juju Poole MD DS: Summary - Time Spent with Patient Total time spent providing and/or coordinating discharge services: Results - Impressions ITS Impressions Lumbar Spine X-Ray 03/05/18 00:00 CONCLUSION: 1. Bilateral transpedicular fixation from L3 through L5 with intervertebral disc prostheses. 2. Minimal grade 1 anterolisthesis of L3 on 4 and L4 on 5. Abdomen X-Ray 03/09/18 00:00 CONCLUSION: Markedly dilated loops of bowel measuring up to 13 cm. Gallbladder Ultrasound 03/10/18 00:00 CONCLUSION: 1. Cholelithiasis. No other definite findings are present to indicate acute gallbladder obstruction or inflammation. Given the clinical symptoms, consider correlating with hepatobiliary nuclear medicine examination to evaluate for cystic duct patency. 2. The pancreas was not adequately visualized. Remainder of the examination is within normal limits. Chest X-Ray 03/11/18 00:00 CONCLUSION: No acute cardiopulmonary disease. <YobanyTuyet - Last Filed: 03/13/18 17:09> Date of admission: 03/05/18 06:22 Primary care physician: Juju Poole MD Brief History from admission: Ms Cardona is a 67 year-old male who presented with intractable mechanical back pain and yosi evidence of right L4 and L5 lower extremity radiculopathy. He had severe spondylosis with facet arthropathy with spondylolisthesis at L4-5 and at L3-L4, where he had prior surgery. He failed maximum nonsurgical management including multiple modalities of conservative treatment as well as pain management interventions by an interventional pain specialist. A surgical decompression and arthrodhesis were indicated as a last resort. DS: Summary Hospital Course: Ms. Rodrigez underwent a L3-4, L4-5 redo decompressive laminectomy, interbody arthrodhesis using PEEK cage and autologous bone graft, L3-4, L4-5 instrumental fixation using transpedicular screws and rods, L3-4, L4-5 posterolateral fusion using autologous bone graft and rods, microsurgical dissection 03/05/18. Surgery complicated with COPD exacerbation postoperatively. She was evaluated by pulmonology. She improved and was discharged. - Time Spent with Patient Total time spent providing and/or coordinating discharge services: Less than 30 minutes - Quality: VTE Deep Vein Thrombosis/Pulmonary Embolism Present on Admission: No Exam Vital signs: Vital Signs 03/10/18 11:02 03/10/18 12:00 03/10/18 12:55 Temperature 97.5 F L Pulse Rate 106 H Respiratory Rate 18 18 Blood Pressure 110/67 Pulse Oximetry 93 L 90 L 03/10/18 16:00 03/10/18 16:32 03/10/18 20:00 Temperature 98.4 F 98.2 F Pulse Rate 92 H 92 H Respiratory Rate 16 18 19 Blood Pressure 112/85 117/82 Pulse Oximetry 92 L 90 L 03/11/18 00:00 03/11/18 04:00 Temperature 98.1 F 96.2 F L Pulse Rate 90 89 Respiratory Rate 18 17 Blood Pressure 121/78 119/79 Pulse Oximetry 91 L 91 L Intake & Output 03/10/18 03/11/18 03/11/18 18:59 06:59 18:59 Intake Total 1060 / 1060 200 / 200 Balance 1060 / 1060 200 / 200 Weight 104 kg Intake: IV 100 / 100 200 / 200 Ancef Inj 2,000 MG In NS Inj 100 / 100 200 / 200 100 ML @ 100 mls/hr IV.SIG Q8H [facility] Rx#:[id number] Oral 960 / 960 Other: # Voids 3 Date of Last Bowel Movement 03/10/18 03/10/18 # Bowel Movements 1 Results Procedures completed during hospitalization: L3-4, L4-5 redo decompressive laminectomy, interbody arthrodhesis using PEEK cage and autologous bone graft, L3-4, L4-5 instrumental fixation using transpedicular screws and rods, L3-4, L4-5 posterolateral fusion using autologous bone graft and rods. Microsurgical dissection 03/05/18 Labs on day of discharge: Labs from last 24 hours 03/11/18 04:43 Sodium 141 Potassium 3.6 Chloride 105 Carbon Dioxide 30.3 Anion Gap 6 BUN 19 H Creatinine 0.68 Estimated GFR 86 L Random Glucose 111 H Calcium 8.3 L - Impressions ITS Impressions Lumbar Spine X-Ray 03/05/18 00:00 CONCLUSION: 1. Bilateral transpedicular fixation from L3 through L5 with intervertebral disc prostheses. 2. Minimal grade 1 anterolisthesis of L3 on 4 and L4 on 5. Abdomen X-Ray 03/09/18 00:00 CONCLUSION: Markedly dilated loops of bowel measuring up to 13 cm. Gallbladder Ultrasound 03/10/18 00:00 CONCLUSION: 1. Cholelithiasis. No other definite findings are present to indicate acute gallbladder obstruction or inflammation. Given the clinical symptoms, consider correlating with hepatobiliary nuclear medicine examination to evaluate for cystic duct patency. 2. The pancreas was not adequately visualized. Remainder of the examination is within normal limits. Chest X-Ray 03/11/18 00:00 CONCLUSION: No acute cardiopulmonary disease. Discharge Plan - Discharge Order Discharge Orders: Discharge Order (Routine); Ordered 03/11/18 Ordered By: Tuyet Haywood - Physicians Team Primary Care Provider: Juju Poole Attending Provider: Frank De La Cruz Other Providers: Ben Foster MD ; Willy Foster MD ; Oleg Contreras MD ; Kevin Moss, DO - Rxs /Orders / Referrals /Forms Prescriptions: New cyclobenzaprine 10 mg Tablet 10 mg PO PRN PRN (Reason: Muscle Spasm) RF: 0 Continue albuterol sulfate [Ventolin HFA] 90 mcg/actuation Hfa Aerosol Inhaler 1 puff INHALATION Q4-6H PRN (Reason: Shortness Of Breath) alendronate 70 mg Tablet 70 mg PO QWEEK amlodipine-atorvastatin 5-40 mg Tablet 1 tab PO DAILY atorvastatin 80 mg Tablet 80 mg PO DAILY bismuth subsalicylate [Pepto-Bismol] 262 mg Tablet 2 tab PO DAILY budesonide-formoterol [Symbicort] 160-4.5 mcg/actuation Hfa Aerosol Inhaler 2 puff INHALATION BID cholecalciferol (vitamin D3) [Vitamin D3] 2,000 unit Capsule 2,000 unit PO TID cilostazol 100 mg Tablet 100 mg PO DAILY clopidogrel 75 mg Tablet 75 mg PO DAILY cyanocobalamin (vitamin B-12) [Vitamin B-12] 1,000 mcg Tablet 1,000 mcg PO WEEKLY gabapentin 300 mg Capsule 300 mg PO TID hydroxyzine HCl 25 mg Tablet 25 mg PO TID Lactobac no.30-Bifidobact no.4 [Ultimate Venita Probiotic] 30 billion cell Capsule,Delayed Release(Dr/Ec) 1 cap PO DAILY Lactobacillus rhamnosus GG [Culturelle] 10 billion cell Capsule 1 cap PO DAILY metoprolol succinate 50 mg Tablet Extended Release 24 Hr 50 mg PO BID pantoprazole 40 mg Tablet,Delayed Release (Dr/Ec) 40 mg PO DAILY tramadol 50 mg Tablet 50 mg PO Q6H PRN (Reason: Pain) vitamins A,C,U-jtjj-dmlape [PreserVision AREDS] [id number],160-113-100 [id number] Tablet 2 tab PO BID Discontinued hydrocodone-acetaminophen 5-325 mg Tablet 1 tab PO Q6H PRN (Reason: Pain) Ambulatory Orders / Order Sets / DME: Walker With Front Wheels (1 each) (Routine) Location: Determined by Patient Ordered By: Tuyet Haywood Referrals: Juju Poole MD [Primary Care Provider] - See Instructions - Discharge Instructions Patient Printed Instructions: Laminectomy (DC), Narcotic Pain Management (ED), Lumbar Spinal Fusion (DC), Lumbar Brace (DC) Additional Instructions: Take medications as instructed. Keep or make your follow up appointments as recommended. Continue to wear lumbar brace as directed by your provider. - Post Discharge Care Plan Care Plan Goals: Your Health Problems: Goals to Promote Your Health: * To prevent worsening of your condition * To maintain your health at the optimal level Directions to Meet Your Goals: * Take your medications as prescribed * Follow your dietary instruction * Follow activity as directed * Keep your appointments as scheduled * Take your immunizations and boosters as scheduled * If your symptoms worsen call your PCP * If no PCP go to Urgent Care or Emergency Room Smoking is dangerous to your health. Avoid second hand smoke. You may reach the 24-hour crisis hotline for domestic abuse at .
[2018-03-11] MEDS ORDERED: Sod Phosphate/Sod Biphosphate (Adult) Enema 133 ML Bottle RECTAL ONE (11:00)
--- NOTE | 2018-03-11 11:59 | P.PN ---
Subjective Interval history: Follow-up of patient with a E COPD, CHF exacerbation, status post redo lumbar laminectomy. Patient seen and examined. Patient continues to have significant abdominal discomfort and bloating although she is now passing flatus and did have a small bowel movement earlier today. She has been able to tolerate a clear liquid diet. States her breathing is unchanged. She remains on 5 L nasal cannula. She denies any new medical complaints. Physical Exam Vital signs: Vital Signs 03/10/18 12:00 03/10/18 12:55 03/10/18 16:00 Temperature 97.5 F L 98.4 F Pulse Rate 106 H 92 H Respiratory Rate 18 16 Blood Pressure 110/67 112/85 Pulse Oximetry 90 L 92 L 03/10/18 16:32 03/10/18 20:00 03/11/18 00:00 Temperature 98.2 F 98.1 F Pulse Rate 92 H 90 Respiratory Rate 18 Blood Pressure 117/82 121/78 Pulse Oximetry 90 L 91 L 03/11/18 04:00 03/11/18 08:00 03/11/18 09:54 Temperature 96.2 F L 98.0 F Pulse Rate 89 86 Respiratory Rate 17 20 Blood Pressure 119/79 149/86 H Pulse Oximetry 91 L 93 L 95 Intake & Output 03/10/18 03/11/18 03/11/18 18:59 06:59 18:59 Intake Total 1060 / 1060 200 / 200 Balance 1060 / 1060 200 / 200 Weight 104 kg Intake: IV 100 / 100 200 / 200 Ancef Inj 2,000 MG In NS Inj 100 / 100 200 / 200 100 ML @ 100 mls/hr IV.SIG Q8H BRAN Rx#:[id number] Oral 960 / 960 Other: # Voids 3 Date of Last Bowel Movement 03/10/18 03/10/18 03/10/18 # Bowel Movements 1 Narrative: GENERAL: Elderly obese female patient. Awake and alert. Not in any acute distress. SKIN: Warm and dry. No generalized rash. HEENT: Atraumatic. Normocephalic. Pupils equal and round. No scleral icterus. No injection or drainage. No nasal bleeding or discharge. Mucous membranes pink and moist. NECK: Trachea midline. CARDIOVASCULAR: Regular rate and rhythm. No murmur appreciated. RESPIRATORY: No accessory muscle use. Distant breath sounds. Diminished at bases bilaterally. GASTROINTESTINAL: Abdomen soft, diffusely tender to palpation more so over right upper and lower quadrants, much improved. Less distention. +High pitched BS. MUSCULOSKELETAL: Extremities without clubbing, cyanosis, or edema. No obvious deformities. NEUROLOGICAL: Awake and alert. No obvious cranial nerve deficits. Motor grossly within normal limits. No focal neurologic finding and Normal speech. PSYCHIATRIC: Calm and cooperative. Appropriate mood and affect. - Urinary Catheter Management Indwelling Urethral Catheter Cath placed during this visit: yes Reason for continuing: Hourly intake/output Insertion date: 03/05/18 Insertion time: 09:30 Results - Labs CBC & Chem 7: 03/09/18 11:25 03/11/18 04:43 Laboratory Results - last 24 hr 03/11/18 04:43 Sodium 141 Potassium 3.6 Chloride 105 Carbon Dioxide 30.3 Anion Gap 6 BUN 19 H Creatinine 0.68 Estimated GFR 86 L Random Glucose 111 H Calcium 8.3 L - Imaging Impressions Chest X-Ray 03/11/18 00:00 CONCLUSION: No acute cardiopulmonary disease. - Procedures L3-4, L4-5 redo decompressive laminectomy, interbody arthrodhesis using PEEK cage and autologous bone graft, L3-4, L4-5 instrumental fixation using transpedicular screws and rods, L3-4, L4-5 posterolateral fusion using autologous bone graft and rods. Microsurgical dissection 03/05/18 Assessment and Plan - Plan This is a 67 y/o F who p/w elective surgery s/p post redo lumbar laminectomy who p/w acute respiratory failure with hypoxia in PACU and transfer to ICU s/p redo of lumbar laminectomy -management per primary team -on Percocet acute respiratory failure thought to be due to COPD exacerbation. CXR review showing B/L infiltrate. Repeat CXR 03/11 negative, images reviewed by me -possible PNA. -Pulmonary following. continue on duonebs. Solumedrol d/c'd by pulm. Now on Prednisone 10mg BID. Continue on Azithromycin. COPD with acute exacerbation -clinically improved. -continue on Spiriva and Symbicort -continue with management per hotel housekeeper. Wean oxygen as tolerated. -IS at bedside, encourage hourly use CHF, exacerbation previous ECHO EF 50% CXR 03/07 Diffuse increased interstitial markings likely related to edema. Suspected linear atelectasis or consolidation at the bases repeat CXR 03/11 negative, images reviewed by me -? CHF exacerbation. Bibasilar crackles on exam. BNP 136, BMI 38.2, possibly contributing to falsely low level -Treated with IV Lasix. Repeat CXR neg. No crackles on exam. Discontinue Lasix. Constipation/ileus No vomiting KUB shows markedly dilated loops of bowel measuring up to 13cm, images reviewed by me Gallbladder US shows cholelithiasis but no acute obstruction or inflammation, images reviewed LFTs WNL Lipase 56 +small hard BM this am, passing flatus -continue on Pericolace BID -continue Miralax po BID scheduled. Add Lactulose scheduled BID. Give Fleets enema now x 1 -continue on clear liquid diet -encourage mobilization -monitor Coronary artery disease/Peripheral arterial disease/Tobacco abuse/Hypertension -Pletal resumed by Dr. De La Cruz -otherwise medication resumed, continue GI prophylaxis -PPI DVT prophylaxis -BLE SCDs. Chemical DVT prophylaxis is contraindicated until cleared by neurosurgery. Code Status: FULL Discussed Condition With: Patient, nursing staff, Dr. Moss Discharge Planning: discharge plan per primary team
--- NOTE | 2018-03-11 13:06 | P.PN ---
Subjective Interval history: She is doing better. Now passing gas and less bloating. On O2 3L Physical Exam Vital signs: Vital Signs 03/10/18 16:00 03/10/18 16:32 03/10/18 20:00 Temperature 98.4 F 98.2 F Pulse Rate 92 H 92 H Respiratory Rate 16 18 19 Blood Pressure 112/85 117/82 Pulse Oximetry 92 L 90 L 03/11/18 00:00 03/11/18 04:00 03/11/18 08:00 Temperature 98.1 F 96.2 F L 98.0 F Pulse Rate 90 89 86 Respiratory Rate 18 17 20 Blood Pressure 121/78 119/79 149/86 H Pulse Oximetry 91 L 91 L 93 L 03/11/18 09:54 Temperature Pulse Rate Respiratory Rate Blood Pressure Pulse Oximetry 95 Intake & Output 03/10/18 03/11/18 03/11/18 18:59 06:59 18:59 Intake Total 1060 / 1060 200 / 200 Balance 1060 / 1060 200 / 200 Weight 104 kg Intake: IV 100 / 100 200 / 200 Ancef Inj 2,000 MG In NS Inj 100 / 100 200 / 200 100 ML @ 100 mls/hr IV.SIG Q8H BRAN Rx#:[id number] Oral 960 / 960 Other: # Voids 3 Date of Last Bowel Movement 03/10/18 03/10/18 03/10/18 # Bowel Movements 1 Narrative: GENERAL: Elderly obese female patient. Awake and alert. Not in any acute distress. SKIN: Warm and dry. HEENT: Atraumatic. Normocephalic. Pupils equal and round. No scleral icterus. No injection or drainage. No nasal bleeding or discharge. NECK: Trachea midline. CARDIOVASCULAR: Regular rate and rhythm. No murmur appreciated. RESPIRATORY: Few basal crackles . Distant breath sounds. Diminished at bases bilaterally. GASTROINTESTINAL: Abdomen soft, diffusely tender to palpation more so over right upper and lower quadrants, much improved. Less distention. BS +. MUSCULOSKELETAL: Extremities without clubbing, cyanosis, or edema. No obvious deformities. NEUROLOGICAL: Awake and alert. No obvious cranial nerve deficits. Motor grossly within normal limits. No focal neurologic finding and Normal speech. PSYCHIATRIC: Appropriate mood and affect. - Urinary Catheter Management Indwelling Urethral Catheter Cath placed during this visit: yes Reason for continuing: Hourly intake/output Insertion date: 03/05/18 Insertion time: 09:30 Results - Labs CBC & Chem 7: 03/09/18 11:25 03/11/18 04:43 Laboratory Results - last 24 hr 03/11/18 04:43 Sodium 141 Potassium 3.6 Chloride 105 Carbon Dioxide 30.3 Anion Gap 6 BUN 19 H Creatinine 0.68 Estimated GFR 86 L Random Glucose 111 H Calcium 8.3 L - Imaging Impressions Chest X-Ray 03/11/18 00:00 CONCLUSION: No acute cardiopulmonary disease. - Procedures L3-4, L4-5 redo decompressive laminectomy, interbody arthrodhesis using PEEK cage and autologous bone graft, L3-4, L4-5 instrumental fixation using transpedicular screws and rods, L3-4, L4-5 posterolateral fusion using autologous bone graft and rods. Microsurgical dissection 03/05/18 Assessment and Plan - Assessment (1) Status post lumbar laminectomy Code(s): Z98.890 - Other specified postprocedural states Status: Acute (2) Respiratory failure following trauma and surgery Code(s): J95.821 - Acute postprocedural respiratory failure Status: Acute (3) COPD exacerbation Code(s): J44.1 - Chronic obstructive pulmonary disease with (acute) exacerbation Status: Acute (4) Pulmonary fibrosis, postinflammatory Code(s): J84.10 - Pulmonary fibrosis, unspecified Status: Acute (5) NICKOLAS (obstructive sleep apnea) Code(s): G47.33 - Obstructive sleep apnea (adult) (pediatric) Status: Acute (6) Hypertension Code(s): I10 - Essential (primary) hypertension Status: Acute - Plan 1. O2 at 4 L and wean to keep sat >92 2. Cont Duonebs neb qid. 3. Symbicort 160/4.5 mcg , 2 puffs BID 4. D/C EZPAP with nebs 5 Laxative for Abdominal distention 6. D/C Zithromax 7. IS at bedside q2h 8. Prednisone 10 mg daily X5 9. Transfer to Rehab today..
== END 2018-03-11 15:26 ==
LOC: HSDI 06:22 → N03 15:51 → N06 03-07 14:22
PROVIDERS: ADMIT Neurological Surgery; ATTEND Neurological Surgery